=== PATIENT | male | born 1940 | race Caucasian/White ===

== ENCOUNTER 2016-11-06 03:00 | Inpatient (IN) | payer MEDICARE ==
[2016-11-06 03:01] VITALS: BMI 29.9
--- NOTE | 2016-11-06 03:33 | C.PDOC ---
History Of Present Illness Patient, with a past medical history of hypertension, hypercholesterolemia, kidney stones, diverticulitis, and gastritis, is brought to the ED by ambulance from the detention for having blood in his stool. Patient has a colostomy and ileostomy bag which is leaking some stool. Patient denies any pain , fever, nausea, vomiting, abdominal pain, or rectal pain. Time Seen by Provider: 11/06/16 03:32 Chief Complaint (Nursing): GI Problem History Per: Patient, EMS History/Exam Limitations: no limitations Onset/Duration Of Symptoms: Other Current Symptoms Are (Timing): Still Present Severity: None Pain Scale Rating Of: 0 Quality Of Discomfort: Other Recent travel outside of the [place]: No Additional History Per: EMS, Longterm Past Medical History Reviewed: Historical Data, Nursing Documentation, Vital Signs Vital Signs: Last Vital Signs Temp 97.5 F L 11/06/16 15:45 Pulse 94 H 11/06/16 15:45 Resp 15 11/06/16 15:45 BP 124/72 11/06/16 15:45 Pulse Ox 97 11/06/16 15:45 - Medical History PMH: Diverticulitis, Gastritis, HTN, Hypercholesterolemia, Kidney Stones ( required left nephrostomy Dr Beckwith 2013) Surgical History: Endoscopy - [facility] Procedures ASSISTANCE WITH RESPIRATORY VENTILATION, 24-96 HRS, CPAP (01/31/16) BYPASS DESCENDING COLON TO CUTANEOUS, OPEN APPROACH (01/31/16) BYPASS JEJUNUM TO CUTANEOUS, OPEN APPROACH (08/17/16) CYSTOSCOPY NEC (09/21/13) DRAINAGE OF ABDOMINAL WALL WITH DRAIN DEV, OPEN APPROACH (08/17/16) DRAINAGE OF ABDOMINAL WALL, OPEN APPROACH (01/31/16) DRAINAGE OF PELVIC CAVITY, PERCUTANEOUS APPROACH (01/31/16) EXCISION OF DESCENDING COLON, OPEN APPROACH (01/31/16) EXCISION OF ESOPHAGOGASTRIC JUNCTION, ENDO, DIAGN (01/31/16) EXCISION OF SIGMOID COLON, ENDO (01/31/16) EXCISION OF SIGMOID COLON, OPEN APPROACH (08/17/16) EXCISION OF STOMACH, ENDO, DIAGN (01/31/16) EXCISION OF TRANSVERSE COLON, ENDO (01/31/16) INSERTION OF INFUSION DEV INTO SUP VENA CAVA, PERC APPROACH (08/30/16) INTRODUCTION OF NUTRITIONAL INTO CENTRAL VEIN, PERC APPROACH (08/30/16) PERCU NEPHROSTM W/O FRAG (11/04/13) PERCU NEPHROSTMY W FRAG (11/06/13) PLAIN RADIOGRAPHY OF SUP MESENT ART USING OTH CONTRAST (01/31/16) RELEASE DESCENDING COLON, OPEN APPROACH (01/31/16) RELEASE PERITONEUM, OPEN APPROACH (08/17/16) REMOV URETERAL DRAIN (11/27/13) REPAIR ABDOMINAL WALL, OPEN APPROACH (01/31/16) REPAIR SIGMOID COLON, OPEN APPROACH (08/17/16) REPAIR SMALL INTESTINE, OPEN APPROACH (08/17/16) RESECTION OF LEFT LARGE INTESTINE, OPEN APPROACH (01/31/16) RESPIRATORY VENTILATION, LESS THAN 24 CONSECUTIVE HOURS (01/31/16) RETROGRADE PYELOGRAM (09/21/13) TRANSFUSE NONAUT RED BLOOD CELLS IN PERIPH VEIN, PERC (01/31/16) URETERAL CATHETERIZATION (11/27/13) Family History: States: No Known Family Hx - Social History Hx Alcohol Use: No Hx Substance Use: No Review Of Systems Constitutional: Negative for: Fever Gastrointestinal: Positive for: Other (blood in stool). Negative for: Nausea, Vomiting, Abdominal Pain, Rectal Pain Physical Exam - Physical Exam Appears: Non-toxic, No Acute Distress Skin: Warm, Dry, Other (skin breakdown over the pubic area) Head: Atraumatic, Normacephalic Eye(s): bilateral: PERRL, EOMI Oral Mucosa: Moist Neck: Supple Chest: Symmetrical Cardiovascular: Rhythm Regular Respiratory: No Rales, No Rhonchi, No Wheezing Gastrointestinal/Abdominal: Bowel Sounds (good), Soft, No Tenderness, No Guarding, No Rebound Rectal: Other (dark, tarry stool) Back: No CVA Tenderness Extremity: Bilateral: Atraumatic Neurological/Psych: Oriented x3 ED Course And Treatment - Laboratory Results Result Diagrams: 11/06/16 17:54 11/06/16 07:52 O2 Sat by Pulse Oximetry: 98 (room air) Pulse Ox Interpretation: Normal Progress Note: Plan: -Labs. -Protonix, IV fluids Disposition Discussed With : Bharathi Santoro Comment: accepted the pt on his service Doctor Will See Patient In The: Hospital Counseled Patient/Family Regarding: Studies Performed, Diagnosis - Disposition Disposition: HOSPITALIZED Disposition Time: 03:32 Condition: FAIR - Clinical Impression Clinical Impression: Gastrointestinal hemorrhage - Scribe Statement The provider has reviewed the documentation as recorded by the Marshall Santoro Provider Attestation: All medical record entries made by the Scribe were at my direction and personally dictated by me. I have reviewed the chart and agree that the record accurately reflects my personal performance of the history, physical exam, medical decision making, and the department course for this patient. I have also personally directed, reviewed, and agree with the discharge instructions and disposition. Decision To Admit - Pt Status Changed To: Hospital Disposition Of: Inpatient - Admit Certification Admit to Inpatient:: After my assessment, the patient will require hospitalization for at least two midnights. This is because of the severity of symptoms shown, intensity of services needed, and/or the medical risk in this patient being treated as an outpatient. - InPatient: Physician Admission Certification: I certify that this patient requires 2 or more midnights of care for the following reason:: After my assessment, the patient will require hospitalization for at least two midnights. This is because of the severity of symptoms shown, intensity of services needed, and/or the medical risk in this patient being treated as an outpatient. - . Bed Request Type: Regular Admitting Physician: Bharathi Santoro Patient Diagnosis: Gastrointestinal hemorrhage
[2016-11-06] MEDS ORDERED: Sodium Chloride 0.9% 1,000 ML IV ONE (03:37)
[2016-11-06] MEDS ORDERED: Pantoprazole 80 MG in Sodium Chloride 0.9% 100 ML IV STA (03:37)
[2016-11-06] MEDS ORDERED: Sodium Chloride 0.9% 1,000 ML ONE ×2 (06:18→09:43)
[2016-11-06] MEDS ORDERED: Morphine 4 MG/ML VIAL ONE (06:18)
[2016-11-06 08:02] LABS: CHLORIDE 92 mmol/L (98-107)
[2016-11-06 08:03] LABS: POTASSIUM 5.1 mmol/L (3.6-5.2); SODIUM 128 mmol/L (132-148)
[2016-11-06 08:05] LABS: ALB/GLOB RATIO 0.8 (1.0-2.1); ALKALINE PHOSPHATASE 136 U/L (38-126); AST/SGOT 36 U/L (17-59); BILIRUBIN,TOTAL 0.3 mg/dL (0.2-1.3); CARBON DIOXIDE 26 mmol/L (22-30); GFR AFRICAN-AMERICAN > 60; TOTAL PROTEIN 6.7 g/dL (6.3-8.3)
[2016-11-06 08:06] LABS: ALT/SGPT 41 U/L (21-72); BLOOD UREA NITROGEN 15 mg/dL (9-20); GLUCOSE,RANDOM 119 mg/dL (75-110)
[2016-11-06] MEDS: Pantoprazole 80 MG in Sodium Chloride 0.9% 100 ML IV SCH ×2 (09:51→16:51)
[2016-11-06 10:22] LABS: RBC URINE 1 /hpf (0-3); URINE BACTERIA RARE (<OCC); URINE BILIRUBIN NEGATIVE (NEGATIVE); URINE BLOOD NEGATIVE (NEGATIVE); URINE GLUCOSE (UA) NORMAL (Normal); URINE KETONE NEGATIVE (NEGATIVE); URINE LEUKOCYTE ESTERASE NEG Leu/uL (Negative); URINE PROTEIN NEGATIVE (NEGATIVE); URINE UROBILINOGEN NORMAL mg/dL (0.2-1.0); WBC URINE 3 /hpf (0-5)
[2016-11-06 10:23] LABS: URINE COLOR YELLOW (YELLOW)
[2016-11-06 12:38] LABS: BASO % 0.3 % (0.0-2.0); EOS # 0.2 K/uL (0.0-0.7); EOS % 1.8 % (0.0-4.0); HEMATOCRIT 40.7 % (35.0-51.0); LYMPH # 2.1 K/uL (1.0-4.3); MEAN CELL VOLUME 95.4 fL (80.0-94.0); MEAN CORPUSCULAR HEMOGLOBIN 31.8 pg (27.0-31.0); MEAN CORPUSCULAR HGB CONC 33.3 g/dL (33.0-37.0); MEAN PLATELET VOLUME 6.4 fL (7.2-11.7); MONO # 0.6 K/uL (0.0-0.8); MONO % 6.3 % (0.0-10.0); RED CELL DISTRIBUTION WIDTH 18.8 % (11.5-14.5); WHITE BLOOD COUNT 9.9 K/uL (4.8-10.8)
--- NOTE | 2016-11-06 15:49 | CP.PCM.HP ---
History of Present Illness - History of Present Illness History of Present Illness: 76-year-old male with past medical history of GI bleed, hypertension, HLD, DM was BIBA from detention for evaluation. As per ED documentation, while at the detention, patient was noted to have blood in stool. It is unclear as to whether the blood was per rectum or via jejunostomy or entero-cutaneous fistula. Patient reports BM per rectum last evening. Patient denies melena and hematochezia. Patient admits to leaking from fistula site, which has caused some painful skin irritation. Patient denies fever, cough, dizziness, light headedness, chest pain, shortness of breath, nausea/vomiting, abdominal pain, D/C, weakness, myalgias. Present on Admission - Present on Admission Any Indicators Present on Admission: No Past Patient History - Infectious Disease Hx of Infectious Diseases: None - Tetanus Immunizations Tetanus Immunization: Unknown - Past Medical History & Family History Past Medical History?: Yes - Past Social History Smoking Status: Never Smoked - CARDIAC Hx Hypercholesterolemia: Yes Hx Hypertension: Yes - PULMONARY Hx Respiratory Disorders: No - NEUROLOGICAL Hx Neurological Disorder: No - HEENT Hx HEENT Problems: Yes Hx Cataracts: Yes - RENAL Hx Kidney Stones: Yes (required left nephrostomy Dr Beckwith 2013) - ENDOCRINE/METABOLIC Hx Diabetes Mellitus Type 2: Yes - INTEGUMENTARY Hx Dermatological Problems: Yes (dry skin) - MUSCULOSKELETAL/RHEUMATOLOGICAL Hx Falls: Yes - GASTROINTESTINAL Hx Diverticulitis: Yes Hx Gastritis: Yes - GENITOURINARY/GYNECOLOGICAL Hx Genitourinary Disorders: No - PSYCHIATRIC Hx Substance Use: No - SURGICAL HISTORY Hx Surgeries: Yes Other/Comment: CYSTO. colostomy s/p large and small bowel perforation, jejunostomy tube - ANESTHESIA Hx Anesthesia: Yes Hx Anesthesia Reactions: No Hx Malignant Hyperthermia: No Meds Allergies/Adverse Reactions: Allergies Allergy/AdvReac Type Severity Reaction Status Date / Time No Known Allergies Allergy Verified 12/02/16 21:23 Physical Exam - Constitutional Appears: Well - Head Exam Head Exam: ATRAUMATIC, NORMAL INSPECTION, NORMOCEPHALIC - Eye Exam Eye Exam: EOMI, Normal appearance, PERRL Pupil Exam: NORMAL ACCOMODATION, PERRL - ENT Exam ENT Exam: Mucous Membranes Moist, Normal Exam - Neck Exam Neck exam: Positive for: Normal Inspection - Respiratory Exam Respiratory Exam: Decreased Breath Sounds - Cardiovascular Exam Cardiovascular Exam: REGULAR RHYTHM, +S1, +S2 - GI/Abdominal Exam GI & Abdominal Exam: Diminished Bowel Sounds - Rectal Exam Rectal Exam: Deferred Results - Vital Signs Recent Vital Signs: Last Vital Signs Temp 97.5 F L 11/06/16 15:45 Pulse 94 H 11/06/16 15:45 Resp 15 11/06/16 15:45 BP 124/72 11/06/16 15:45 Pulse Ox 97 11/06/16 15:45 - Labs Result Diagrams: 11/15/16 06:12 11/15/16 06:12 Labs: Laboratory Results - last 24 hr 11/06/16 11/06/16 11/06/16 07:52 09:59 12:30 WBC 9.9 D RBC 4.26 L Hgb 13.5 D Hct 40.7 MCV 95.4 H D MCH 31.8 H MCHC 33.3 RDW 18.8 H Plt Count 489 H D MPV 6.4 L Neut % (Auto) 70.6 Lymph % (Auto) 21.0 [place] % (Auto) 6.3 Eos % (Auto) 1.8 Baso % (Auto) 0.3 Neut # 7.0 Lymph # 2.1 [place] # 0.6 Eos # 0.2 Baso # 0.0 Sodium 128 L Potassium 5.1 Chloride 92 L Carbon Dioxide 26 Anion Gap 15 BUN 15 Creatinine 0.9 Est GFR ( Amer) > 60 Est GFR (Non-Af Amer) > 60 Random Glucose 119 H Calcium 8.0 L Total Bilirubin 0.3 AST 36 ALT 41 Alkaline Phosphatase 136 H D Total Protein 6.7 Albumin 3.0 L Globulin 3.7 Albumin/Globulin Ratio 0.8 L Urine Color Yellow Urine Clarity Hazy Urine pH 5.0 Ur Specific [place] 1.025 Urine Protein Negative Urine Glucose (UA) Normal Urine Ketones Negative Urine Blood Negative Urine Nitrate Negative Urine Bilirubin Negative Urine Urobilinogen Normal Ur Leukocyte Esterase Neg Urine WBC (Auto) 3 Urine RBC (Auto) 1 Urine Bacteria Rare Hyaline Casts 6-10 H Assessment & Plan (1) Acute blood loss anemia Status: Acute (2) Anastomotic leak of intestine Status: Acute (3) Anemia Status: Acute (4) Cholecystitis without cholelithiasis Status: Acute (5) Colon polyps Status: Acute (6) Diabetes Status: Acute (7) Gastrointestinal hemorrhage Status: Acute (8) Iron deficiency anemia Status: Acute (9) Prophylactic measure Status: Acute (10) Weight loss Status: Acute (11) Diverticulosis large intestine w/o perforation or abscess w/o bleeding Status: Chronic (12) Diverticulosis of colon Status: Chronic (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
--- NOTE | 2016-11-06 17:08 | CP.PCM.CON ---
History of Present Illness - History of Present Illness History of Present Illness: General Surgery Dr. Gil HPI: 76 y/o M w/ PMHx of GI bleed, HTN, HLD, DM [facility]. Per [facility] documentation, [facility] at the [facility], pt was noted to have blood in stool. It is unclear as to whether the blood was per rectum or via jejunostomy or enterocutaneous fistula. Pt reports BM per rectum last evening. Pt denies melena and hematochezia. Pt admits to leaking from fistula site, which has caused some painful skin irritation. Pt denies F/C, dizziness, lightheadedness, CP, SOB, N/V, abd pain, D/C, weakness, myalgias. PMHx: HTN, HLD, DM, nephrolithiasis, GERD, diverticulosis, GI bleed Meds: reviewed in chart NKDA PSHx: L hemicolectomy, colostomy placement and reversal, ileostomy SHx: denies tobacco, EtOH, drugs FHx: non-contributory Review of Systems - Review of Systems All systems: reviewed and no additional remarkable complaints except (see HPI) Past Patient History - Infectious Disease Hx of Infectious Diseases: None - Tetanus Immunizations Tetanus Immunization: Unknown - Past Medical History & Family History Past Medical History?: Yes - Past Social History Smoking Status: Never Smoked - CARDIAC Hx Hypercholesterolemia: Yes Hx Hypertension: Yes - PULMONARY Hx Respiratory Disorders: No - NEUROLOGICAL Hx Neurological Disorder: No - HEENT Hx HEENT Problems: Yes Hx Cataracts: Yes - RENAL Hx Kidney Stones: Yes (required left nephrostomy Dr Beckwith 2013) - ENDOCRINE/METABOLIC Hx Diabetes Mellitus Type 2: Yes - INTEGUMENTARY Hx Dermatological Problems: Yes (dry skin) - MUSCULOSKELETAL/RHEUMATOLOGICAL Hx Falls: Yes - GASTROINTESTINAL Hx Diverticulitis: Yes Hx Gastritis: Yes - GENITOURINARY/GYNECOLOGICAL Hx Genitourinary Disorders: No - PSYCHIATRIC Hx Substance Use: No - SURGICAL HISTORY Hx Surgeries: Yes Other/Comment: CYSTO. colostomy s/p large and small bowel perforation, jejunostomy tube - ANESTHESIA Hx Anesthesia: Yes Hx Anesthesia Reactions: No Hx Malignant Hyperthermia: No Meds Allergies/Adverse Reactions: Allergies Allergy/AdvReac Type Severity Reaction Status Date / Time No Known Allergies Allergy Verified 01/31/16 14:28 - Medications Medications: Current Medications Pantoprazole Sodium 80 mg/ (Sodium Chloride) 100 mls @ 10 mls/hr IV .Q10H [facility] Last Admin: 11/06/16 16:51 Dose: 10 mls/hr Cefepime HCl (Maxipime Iv 1 Gm Premix) 1 gm in 50 mls @ 100 mls/hr IVPB Q12H [facility] Metronidazole (Flagyl) 500 mg in 100 mls @ 100 mls/hr IVPB Q12H [facility] Physical Exam - Constitutional Appears: Non-toxic, No Acute Distress - Head Exam Head Exam: NORMAL INSPECTION - Eye Exam Eye Exam: Normal appearance - ENT Exam ENT Exam: Mucous Membranes Moist - Neck Exam Neck exam: Positive for: Normal Inspection - Respiratory Exam Respiratory Exam: Accessory Muscle Use, Respiratory Distress, NORMAL BREATHING PATTERN - Cardiovascular Exam Cardiovascular Exam: Tachycardia, REGULAR RHYTHM - GI/Abdominal Exam GI & Abdominal Exam: Rigid, Soft, Tenderness (superfical). absent: Distended, Firm, Guarding, Rebound - Rectal Exam Rectal Exam: Hemorrhoids (L lateral) Additional comments: FOB (-) - Extremities Exam Extremities exam: Positive for: normal inspection, pedal edema, tenderness - Back Exam Back exam: NORMAL INSPECTION - Neurological Exam Neurological exam: Alert, Oriented x3 - Psychiatric Exam Psychiatric exam: Normal Affect, Normal Mood - Skin Skin Exam: Warm Additional comments: LLQ/Suprapubic gross erythema, warmth TTP cellulitis (+) induration but no fluctuance Results - Vital Signs Recent Vital Signs: Last Vital Signs Temp 97.5 F L 11/06/16 15:45 Pulse 94 H 11/06/16 15:45 Resp 15 11/06/16 15:45 BP 124/72 11/06/16 15:45 Pulse Ox 97 11/06/16 15:45 - Labs Result Diagrams: 11/06/16 17:54 11/06/16 07:52 Labs: Laboratory Results - last 24 hr 11/06/16 11/06/16 11/06/16 07:52 09:59 12:30 WBC 9.9 D RBC 4.26 L Hgb 13.5 D Hct 40.7 MCV 95.4 H D MCH 31.8 H MCHC 33.3 RDW 18.8 H Plt Count 489 H D MPV 6.4 L Neut % (Auto) 70.6 Lymph % (Auto) 21.0 [place] % (Auto) 6.3 Eos % (Auto) 1.8 Baso % (Auto) 0.3 Neut # 7.0 Lymph # 2.1 [place] # 0.6 Eos # 0.2 Baso # 0.0 Sodium 128 L Potassium 5.1 Chloride 92 L Carbon Dioxide 26 Anion Gap 15 BUN 15 Creatinine 0.9 Est GFR ( Amer) > 60 Est GFR (Non-Af Amer) > 60 Random Glucose 119 H Calcium 8.0 L Total Bilirubin 0.3 AST 36 ALT 41 Alkaline Phosphatase 136 H D Total Protein 6.7 Albumin 3.0 L Globulin 3.7 Albumin/Globulin Ratio 0.8 L Urine Color Yellow Urine Clarity Hazy Urine pH 5.0 Ur Specific [place] 1.025 Urine Protein Negative Urine Glucose (UA) Normal Urine Ketones Negative Urine Blood Negative Urine Nitrate Negative Urine Bilirubin Negative Urine Urobilinogen Normal Ur Leukocyte Esterase Neg Urine WBC (Auto) 3 Urine RBC (Auto) 1 Urine Bacteria Rare Hyaline Casts 6-10 H Assessment & Plan - Assessment and Plan (Free Text) Assessment: 76 y/o M s/p L hemicolectomy w/ colostomy, reversal, jejunostomy, and enterocutaneous fistula. - unlear as to whether FOB from fistula, in which case its likely from skin irritation, vs rectum, which may indicate lower GI bleed - NPO - keep abd clean and dry --> change dressings PRN - consult wound care for fistula - IV Abx - NPO until clear source of bleeding identified - pain management Further recs per Dr. Jeffery Gutierrez DO PGY1
[2016-11-06] MEDS: Cefepime IV 1 gm in Dextrose 1 GM/50 ML BAG IVPB SCH (17:31)
[2016-11-06 18:02] LABS: BASO % 0.3 % (0.0-2.0); EOS # 0.1 K/uL (0.0-0.7); EOS % 0.8 % (0.0-4.0); HEMATOCRIT 37.3 % (35.0-51.0); LYMPH # 1.9 K/uL (1.0-4.3); MEAN CELL VOLUME 95.4 fL (80.0-94.0); MEAN CORPUSCULAR HEMOGLOBIN 32.4 pg (27.0-31.0); MEAN CORPUSCULAR HGB CONC 33.9 g/dL (33.0-37.0); MEAN PLATELET VOLUME 6.2 fL (7.2-11.7); MONO # 0.5 K/uL (0.0-0.8); MONO % 5.1 % (0.0-10.0); RED CELL DISTRIBUTION WIDTH 19.3 % (11.5-14.5); WHITE BLOOD COUNT 10.4 K/uL (4.8-10.8)
[2016-11-06] MEDS: metroNIDAZOLE IV 500 mg/100 ml 500 MG/100 ML BAG IVPB SCH (18:12)
[2016-11-06] MEDS: Dextrose 5%/0.45% NS 1,000 ML IV SCH (22:10)
[2016-11-06] MEDS: HYDROmorphone 0.5 mg/0.5 ml ISec IVP PRN (22:47)
[2016-11-07] MEDS: Pantoprazole 80 MG in Sodium Chloride 0.9% 100 ML IV SCH (03:56)
[2016-11-07] MEDS: Cefepime IV 1 gm in Dextrose 1 GM/50 ML BAG IVPB SCH ×2 (05:18→16:57)
[2016-11-07] MEDS: HYDROmorphone 0.5 mg/0.5 ml ISec IVP PRN ×2 (06:12→12:40)
[2016-11-07] MEDS: metroNIDAZOLE IV 500 mg/100 ml 500 MG/100 ML BAG IVPB SCH ×2 (06:14→17:36)
--- NOTE | 2016-11-07 09:05 | CP.PCM.PN ---
Subjective - Date & Time of Evaluation Date of Evaluation: 11/07/16 Time of Evaluation: 07:30 - Subjective Subjective: General Surgery Dr. Gil Pt S&E @bedside. NAEO. pt reports improved skin irritation w/ new fistula appliance. no BM overnight. denies F/C, N/V, D/C. no melena or hematochezia. pt is NPO but requesting food. Objective - Vital Signs/Intake and Output Vital Signs (last 24 hours): Temp Pulse Resp BP Pulse Ox 98 F 93 H 12 103/62 94 L 11/07/16 07:58 11/07/16 08:28 11/07/16 07:58 11/07/16 07:58 11/07/16 07:58 Intake and Output: 11/07/16 11/07/16 06:59 18:59 Intake Total 1025 170 Output Total 450 Balance 575 170 - Medications Medications: Current Medications Hydromorphone HCl (Dilaudid) 0.5 mg IVP Q6H PRN PRN Reason: Pain, moderate (4-7) Last Admin: 11/07/16 06:12 Dose: 0.5 mg Pantoprazole Sodium 80 mg/ (Sodium Chloride) 100 mls @ 10 mls/hr IV .Q10H [facility] Last Admin: 11/07/16 03:56 Dose: 10 mls/hr Cefepime HCl (Maxipime Iv 1 Gm Premix) 1 gm in 50 mls @ 100 mls/hr IVPB Q12H [facility] Last Admin: 11/07/16 05:18 Dose: 100 mls/hr Metronidazole (Flagyl) 500 mg in 100 mls @ 100 mls/hr IVPB Q12H [facility] Last Admin: 11/07/16 06:14 Dose: 100 mls/hr Dextrose/Sodium Chloride (Dextrose 5%/0.45% Ns 1000 Ml) 1,000 mls @ 75 mls/hr IV .[id number] [facility] Last Admin: 11/06/16 22:10 Dose: 75 mls/hr - Labs Labs: 11/06/16 17:54 11/06/16 07:52 PT 11.5 SECONDS (9.7-12.2) 11/06/16 03:37 INR 1.0 11/06/16 03:37 APTT 36 SECONDS (21-34) H 11/06/16 03:37 - Constitutional Appears: Non-toxic, No Acute Distress - Head Exam Head Exam: NORMAL INSPECTION - Eye Exam Eye Exam: Normal appearance - ENT Exam ENT Exam: Mucous Membranes Moist - Neck Exam Neck Exam: Normal Inspection - Respiratory Exam Respiratory Exam: NORMAL BREATHING PATTERN. absent: Accessory Muscle Use, Respiratory Distress - Cardiovascular Exam Cardiovascular Exam: REGULAR RHYTHM. absent: Bradycardia, Tachycardia - GI/Abdominal Exam GI & Abdominal Exam: Soft, Tenderness (skin only). absent: Distended, Guarding Additional comments: midline enterocutaneous fistula - liquid stool present in appliance RUQ jejunostomy remnant vs loop ileostomy - ostomy bag empty - Extremities Exam Extremities Exam: Normal Capillary Refill - Neurological Exam Neurological Exam: Alert, Awake - Psychiatric Exam Psychiatric exam: Normal Affect, Normal Mood - Skin Skin Exam: Dry, Intact, Normal Color, Warm Assessment and Plan - Assessment and Plan (Free Text) Assessment: 76 y/o M s/p L hemicolectomy w/ colostomy, reversal, jejunostomy, and enterocutaneous fistula. - f/u Fistulagram - FOB from Rectal exam yesterday negative --> possible (+)FOB from ED came from fistula, in which case its likely from skin irritation - keep abd clean and dry --> change dressings PRN - f/u wound care - IV Abx per PMD - NPO until clear source of bleeding identified - pain management Further recs per Dr. Jeffery Gutierrez DO PGY1
--- NOTE | 2016-11-07 09:56 | CP.PCM.CON ---
<HaydeeteresaRory muir - Last Filed: 11/07/16 10:06> History of Present Illness - History of Present Illness History of Present Illness: PGY4 GI Fellow Consult Note Patient is a 76yo male with PMHx significant for diverticulosis with prior diverticular bleeding requiring left hemicolectomy with colostomy/reversal/loop ileostomy, HTN, dyperlipidemia, nephrolithiasis who presented from [facility] with rectal bleeding. The patient has had a complicated surgical history with left hemicolectomy for diverticular bleeding, reversal of colostomy which was complicated by anastamotic leakage, large bowel perforation , abscess/hematoma/enterocutaneous fisutla formation with multiple revisions/ resection of small bowel and eventual loop ileostomy. At subacute rehab facility , patient was noted to have rectal bleeding for multiple days leading up to admission and was sent for evaluation given persistence. The patient denies these findings and his only complaint at present is some leakage of stool from his ostomy and skin irritation. Denies any dizziness, lightheadedness, abdominal pain, nausea, vomiting. PMHx: See HPI PSHx: See HPI FHx: Discussed with patient and denies any significant family history Social: Denies tobacco, EtOH or illicit drug use Endo: 02/01/16 - EGD/Colon - Class B esophagitis/Schatzki ring/gastritis; 2 polyps/bleeding diverticulosis Review of Systems - Constitutional Constitutional: absent: Anorexia, Chills, Weight Loss - EENT Eyes: absent: Change in Vision Nose/Mouth/Throat: absent: Sore Throat - Cardiovascular Cardiovascular: absent: Chest Pain, Dyspnea, Leg Edema - Respiratory Respiratory: absent: Cough, Dyspnea, Excessive Mucous Production - Gastrointestinal Gastrointestinal: absent: Abdominal Pain, Belching, Bloating, Constipation, Cramping, Diarrhea, Dysphagia, Heartburn, Hematemesis, Hematochezia, Melena, Nausea, Vomiting - Genitourinary Genitourinary: absent: Dysuria, Urinary Frequency, Urinary Urgency - Musculoskeletal Musculoskeletal: absent: Back Pain, Neck Pain - Integumentary Integumentary: absent: New Lesions, Rash - Neurological Neurological: absent: Dizziness, Numbness, Focal Weakness - Psychiatric Psychiatric: absent: Anxiety, Depression - Endocrine Endocrine: absent: Polydipsia, Polyphagia, Polyuria - Hematologic/Lymphatic Hematologic: absent: Easy Bleeding, Easy Bruising, Lymphadenopathy Past Patient History - Infectious Disease Hx of Infectious Diseases: None - Tetanus Immunizations Tetanus Immunization: Unknown - Past Medical History & Family History Past Medical History?: Yes - Past Social History Smoking Status: Never Smoked - CARDIAC Hx Hypercholesterolemia: Yes Hx Hypertension: Yes - PULMONARY Hx Respiratory Disorders: No - NEUROLOGICAL Hx Neurological Disorder: No - HEENT Hx HEENT Problems: Yes Hx Cataracts: Yes - RENAL Hx Kidney Stones: Yes (required left nephrostomy Dr Beckwith 2013) - ENDOCRINE/METABOLIC Hx Diabetes Mellitus Type 2: Yes - INTEGUMENTARY Hx Dermatological Problems: Yes (dry skin) - MUSCULOSKELETAL/RHEUMATOLOGICAL Hx Falls: Yes - GASTROINTESTINAL Hx Diverticulitis: Yes Hx Gastritis: Yes - GENITOURINARY/GYNECOLOGICAL Hx Genitourinary Disorders: No - PSYCHIATRIC Hx Substance Use: No - SURGICAL HISTORY Hx Surgeries: Yes Other/Comment: CYSTO. colostomy s/p large and small bowel perforation, jejunostomy tube - ANESTHESIA Hx Anesthesia: Yes Hx Anesthesia Reactions: No Hx Malignant Hyperthermia: No Meds Allergies/Adverse Reactions: Allergies Allergy/AdvReac Type Severity Reaction Status Date / Time No Known Allergies Allergy Verified 01/31/16 14:28 - Medications Medications: Current Medications Hydromorphone HCl (Dilaudid) 0.5 mg IVP Q6H PRN PRN Reason: Pain, moderate (4-7) Last Admin: 11/07/16 06:12 Dose: 0.5 mg Pantoprazole Sodium 80 mg/ (Sodium Chloride) 100 mls @ 10 mls/hr IV .Q10H [facility] Last Admin: 11/07/16 03:56 Dose: 10 mls/hr Cefepime HCl (Maxipime Iv 1 Gm Premix) 1 gm in 50 mls @ 100 mls/hr IVPB Q12H [facility] Last Admin: 11/07/16 05:18 Dose: 100 mls/hr Metronidazole (Flagyl) 500 mg in 100 mls @ 100 mls/hr IVPB Q12H [facility] Last Admin: 11/07/16 06:14 Dose: 100 mls/hr Dextrose/Sodium Chloride (Dextrose 5%/0.45% Ns 1000 Ml) 1,000 mls @ 75 mls/hr IV .[id number] [facility] Last Admin: 11/06/16 22:10 Dose: 75 mls/hr Physical Exam - Constitutional Appears: Non-toxic, No Acute Distress - Eye Exam Eye Exam: EOMI, PERRL - ENT Exam ENT Exam: Mucous Membranes Moist - Respiratory Exam Respiratory Exam: Clear to Auscultation Bilateral. absent: Rales, Rhonchi, Wheezes - Cardiovascular Exam Cardiovascular Exam: RRR, +S1, +S2 - GI/Abdominal Exam GI & Abdominal Exam: Normal Bowel Sounds, Soft. absent: Distended, Firm, Guarding, Rigid, Tenderness Additional comments: RUQ ostomy with liquid stool; midline pouch for fistula with drainage noted; healing ostomy site in RUQ - Rectal Exam Rectal Exam: absent: Black Stool, Bloody Stool Additional comments: external skin tag - Extremities Exam Extremities exam: Positive for: normal inspection. Negative for: pedal edema - Neurological Exam Neurological exam: Alert, Oriented x3 - Psychiatric Exam Psychiatric exam: Normal Affect, Normal Mood - Skin Skin Exam: Dry, Warm Results - Vital Signs Recent Vital Signs: Last Vital Signs Temp 98 F 11/07/16 07:58 Pulse 93 H 11/07/16 08:28 Resp 12 11/07/16 07:58 BP 103/62 11/07/16 07:58 Pulse Ox 94 L 11/07/16 07:58 - Labs Result Diagrams: 11/06/16 17:54 11/06/16 07:52 Labs: Laboratory Results - last 24 hr 11/06/16 11/06/16 11/06/16 09:59 12:30 17:54 WBC 9.9 D 10.4 RBC 4.26 L 3.91 L Hgb 13.5 D 12.7 Hct 40.7 37.3 MCV 95.4 H D 95.4 H MCH 31.8 H 32.4 H MCHC 33.3 33.9 RDW 18.8 H 19.3 H Plt Count 489 H D 497 H MPV 6.4 L 6.2 L Neut % (Auto) 70.6 75.8 H Lymph % (Auto) 21.0 18.0 L [place] % (Auto) 6.3 5.1 Eos % (Auto) 1.8 0.8 Baso % (Auto) 0.3 0.3 Neut # 7.0 7.9 H Lymph # 2.1 1.9 [place] # 0.6 0.5 Eos # 0.2 0.1 Baso # 0.0 0.0 Urine Color Yellow Urine Clarity Hazy Urine pH 5.0 Ur Specific [place] 1.025 Urine Protein Negative Urine Glucose (UA) Normal Urine Ketones Negative Urine Blood Negative Urine Nitrate Negative Urine Bilirubin Negative Urine Urobilinogen Normal Ur Leukocyte Esterase Neg Urine WBC (Auto) 3 Urine RBC (Auto) 1 Urine Bacteria Rare Hyaline Casts 6-10 H Stool Occult Blood 11/06/16 18:06 WBC RBC Hgb Hct MCV MCH MCHC RDW Plt Count MPV Neut % (Auto) Lymph % (Auto) [place] % (Auto) Eos % (Auto) Baso % (Auto) Neut # Lymph # [place] # Eos # Baso # Urine Color Urine Clarity Urine pH Ur Specific [place] Urine Protein Urine Glucose (UA) Urine Ketones Urine Blood Urine Nitrate Urine Bilirubin Urine Urobilinogen Ur Leukocyte Esterase Urine WBC (Auto) Urine RBC (Auto) Urine Bacteria Hyaline Casts Stool Occult Blood Negative Assessment & Plan - Assessment and Plan (Free Text) Assessment: Patient is a 76yo male with PMHx significant for diverticulosis with prior diverticular bleeding requiring left hemicolectomy with colostomy/reversal/loop ileostomy, HTN, dyperlipidemia, nephrolithiasis who presented from [facility] with rectal bleeding. -Rectal bleeding -Diverticulosis -Skin irritation from ostomy leakage -Enterocutaneous fistula Plan: -No evidence of overt GI bleeding/hematochezia since admission; one stool FOBT positive in ED noted; rectal exam with brown liquid stool -D/C protonix gtt -Start Pantoprazole 40mg PO QAMAC -For now, monitor with conservative management from our service; no plan for endoscopic evaluation at this juncture -General surgery following; appreciate recommendations regarding ostomy/fistula - Date & Time Date: 11/07/16 Time: 06:50 <Maikel Payne - Last Filed: 11/07/16 13:52> Meds - Medications Medications: Current Medications Hydromorphone HCl (Dilaudid) 0.5 mg IVP Q6H PRN PRN Reason: Pain, moderate (4-7) Last Admin: 11/07/16 12:40 Dose: 0.5 mg Cefepime HCl (Maxipime Iv 1 Gm Premix) 1 gm in 50 mls @ 100 mls/hr IVPB Q12H [facility] Last Admin: 11/07/16 05:18 Dose: 100 mls/hr Metronidazole (Flagyl) 500 mg in 100 mls @ 100 mls/hr IVPB Q12H [facility] Last Admin: 11/07/16 06:14 Dose: 100 mls/hr Dextrose/Sodium Chloride (Dextrose 5%/0.45% Ns 1000 Ml) 1,000 mls @ 75 mls/hr IV .[id number] [facility] Last Admin: 11/07/16 11:54 Dose: 75 mls/hr Pantoprazole Sodium (Protonix Ec Tab) 40 mg PO ACB [facility] Results - Vital Signs Recent Vital Signs: Last Vital Signs Temp 98 F 11/07/16 07:58 Pulse 93 H 11/07/16 08:28 Resp 12 11/07/16 07:58 BP 103/62 11/07/16 07:58 Pulse Ox 94 L 11/07/16 07:58 - Labs Result Diagrams: 11/07/16 11:25 11/07/16 11:25 Labs: Laboratory Results - last 24 hr 11/06/16 11/06/16 11/07/16 17:54 18:06 11:25 WBC 10.4 6.5 RBC 3.91 L 3.57 L Hgb 12.7 11.3 L Hct 37.3 34.0 L MCV 95.4 H 95.3 H MCH 32.4 H 31.7 H MCHC 33.9 33.2 RDW 19.3 H 19.1 H Plt Count 497 H 437 H MPV 6.2 L 6.0 L Neut % (Auto) 75.8 H Lymph % (Auto) 18.0 L [place] % (Auto) 5.1 Eos % (Auto) 0.8 Baso % (Auto) 0.3 Neut # 7.9 H Lymph # 1.9 [place] # 0.5 Eos # 0.1 Baso # 0.0 Sodium Potassium Chloride Carbon Dioxide Anion Gap BUN Creatinine Est GFR ( Amer) Est GFR (Non-Af Amer) Random Glucose Calcium Total Bilirubin AST ALT Alkaline Phosphatase Total Protein Albumin Globulin Albumin/Globulin Ratio Stool Occult Blood Negative 11/07/16 11:25 WBC RBC Hgb Hct MCV MCH MCHC RDW Plt Count MPV Neut % (Auto) Lymph % (Auto) [place] % (Auto) Eos % (Auto) Baso % (Auto) Neut # Lymph # [place] # Eos # Baso # Sodium 129 L Potassium 4.2 Chloride 96 L Carbon Dioxide 26 Anion Gap 11 BUN 14 Creatinine 0.8 Est GFR ( Amer) > 60 Est GFR (Non-Af Amer) > 60 Random Glucose 124 H Calcium 7.1 L Total Bilirubin 0.6 AST 30 ALT 36 Alkaline Phosphatase 97 Total Protein 5.4 L Albumin 2.3 L D Globulin 3.1 Albumin/Globulin Ratio 0.7 L Stool Occult Blood Attending/Attestation - Attestation I have personally seen and examined this patient.: Yes I have fully participated in the care of the patient.: Yes I have reviewed all pertinent clinical information: Yes Notes (Text): Patient seen and examined with GI fellow. Agree with his note as documented above with the following additions/exceptions. This is a 76 year old male with h/o diverticular bleeding s/p left hemicolectomy with colostomy/reversal complicated by entercutaneous fistula/anastomotic leak s/p colostomy, HTN presenting with possible GI bleeding. Last CT 10/2015 redemonstrating enterocutaneous fistula with small collection. His ostomy/fistula sites are not draining bloody output at this time. Rectal examination without any evidence of overt GI blood loss. Last EGD/colonoscopy 2015 for GI bleeding showed bleeding diverticulum. Would manage conservatively at this point, monitor for bleeding, monitor H/H. Continue PPI daily. Follow up surgery recommendations. 11/07/16 13:46
[2016-11-07 11:29] LABS: MEAN CELL VOLUME 95.3 fL (80.0-94.0); MEAN CORPUSCULAR HEMOGLOBIN 31.7 pg (27.0-31.0); MEAN CORPUSCULAR HGB CONC 33.2 g/dL (33.0-37.0); RED CELL DISTRIBUTION WIDTH 19.1 % (11.5-14.5); WHITE BLOOD COUNT 6.5 K/uL (4.8-10.8)
[2016-11-07 11:35] LABS: CHLORIDE 96 mmol/L (98-107); POTASSIUM 4.2 mmol/L (3.6-5.2); SODIUM 129 mmol/L (132-148)
[2016-11-07 11:37] LABS: ALB/GLOB RATIO 0.7 (1.0-2.1); AST/SGOT 30 U/L (17-59); BILIRUBIN,TOTAL 0.6 mg/dL (0.2-1.3); CARBON DIOXIDE 26 mmol/L (22-30); GFR AFRICAN-AMERICAN > 60; TOTAL PROTEIN 5.4 g/dL (6.3-8.3)
[2016-11-07 11:38] LABS: ALKALINE PHOSPHATASE 97 U/L (38-126); ALT/SGPT 36 U/L (21-72); BLOOD UREA NITROGEN 14 mg/dL (9-20); CALCIUM 7.1 mg/dl (8.6-10.4); GLUCOSE,RANDOM 124 mg/dL (75-110)
[2016-11-07] MEDS: Dextrose 5%/0.45% NS 1,000 ML IV SCH (11:54)
--- NOTE | 2016-11-07 17:10 | CP.PCM.PN ---
Subjective - Date & Time of Evaluation Date of Evaluation: 11/07/16 Time of Evaluation: 14:40 - Subjective Subjective: clincally same Objective - Vital Signs/Intake and Output Vital Signs (last 24 hours): Temp Pulse Resp BP Pulse Ox 97.3 F L 92 H 14 86/60 L 98 11/07/16 14:00 11/07/16 15:00 11/07/16 14:00 11/07/16 14:00 11/07/16 14:00 Intake and Output: 11/07/16 11/07/16 06:59 18:59 Intake Total 1025 1790 Output Total 450 100 Balance 575 1690 - Medications Medications: Current Medications Hydromorphone HCl (Dilaudid) 0.5 mg IVP Q6H PRN PRN Reason: Pain, moderate (4-7) Last Admin: 11/07/16 12:40 Dose: 0.5 mg Cefepime HCl (Maxipime Iv 1 Gm Premix) 1 gm in 50 mls @ 100 mls/hr IVPB Q12H [facility] Last Admin: 11/07/16 16:57 Dose: 100 mls/hr Metronidazole (Flagyl) 500 mg in 100 mls @ 100 mls/hr IVPB Q12H [facility] Last Admin: 11/07/16 06:14 Dose: 100 mls/hr Dextrose/Sodium Chloride (Dextrose 5%/0.45% Ns 1000 Ml) 1,000 mls @ 75 mls/hr IV .[id number] [facility] Last Admin: 11/07/16 11:54 Dose: 75 mls/hr Pantoprazole Sodium (Protonix Ec Tab) 40 mg PO ACB [facility] - Labs Labs: 11/07/16 11:25 11/07/16 11:25 PT 11.5 SECONDS (9.7-12.2) 11/06/16 03:37 INR 1.0 11/06/16 03:37 APTT 36 SECONDS (21-34) H 11/06/16 03:37 - Constitutional Appears: Well - Head Exam Head Exam: ATRAUMATIC, NORMAL INSPECTION, NORMOCEPHALIC - Eye Exam Eye Exam: EOMI, Normal appearance, PERRL Pupil Exam: NORMAL ACCOMODATION, PERRL - ENT Exam ENT Exam: Mucous Membranes Moist, Normal Exam - Neck Exam Neck Exam: Full ROM, Normal Inspection. absent: Lymphadenopathy - Respiratory Exam Respiratory Exam: Decreased Breath Sounds - Cardiovascular Exam Cardiovascular Exam: REGULAR RHYTHM, +S1, +S2 - GI/Abdominal Exam GI & Abdominal Exam: Soft, Diminished Bowel Sounds - Rectal Exam Rectal Exam: Deferred Assessment and Plan (1) Acute blood loss anemia Status: Acute (2) Anastomotic leak of intestine Status: Acute (3) Anemia Status: Acute (4) Cholecystitis without cholelithiasis Status: Acute (5) Colon polyps Status: Acute (6) Diabetes Status: Acute (7) Gastrointestinal hemorrhage Status: Acute (8) Iron deficiency anemia Status: Acute (9) Prophylactic measure Status: Acute (10) Weight loss Status: Acute (11) Diverticulosis large intestine w/o perforation or abscess w/o bleeding Status: Chronic (12) Diverticulosis of colon Status: Chronic (13) Enterocutaneous fistula Status: Chronic (14) Dehydration, severe Status: Resolved (15) Sepsis Status: Resolved (16) Sialadenitis Status: Resolved (17) Cholecystitis with cholelithiasis Status: Ruled-out - Assessment and Plan (Free Text) Plan: estefany meds surgery consult pulmo on board GI consult estefany antibiotics IV fluids dilaudid
[2016-11-08] MEDS: Dextrose 5%/0.45% NS 1,000 ML IV SCH ×3 (03:16→15:36)
[2016-11-08] MEDS: Cefepime IV 1 gm in Dextrose 1 GM/50 ML BAG IVPB SCH ×2 (05:17→17:44)
[2016-11-08] MEDS: HYDROmorphone 0.5 mg/0.5 ml ISec IVP PRN (05:55)
[2016-11-08] MEDS: metroNIDAZOLE IV 500 mg/100 ml 500 MG/100 ML BAG IVPB SCH ×2 (06:02→17:45)
--- NOTE | 2016-11-08 08:05 | CP.PCM.PN ---
<Rory Eaton - Last Filed: 11/08/16 08:02> Subjective - Date & Time of Evaluation Date of Evaluation: 11/08/16 Time of Evaluation: 07:15 - Subjective Subjective: PGY4 GI Fellow Progress Note Patient seen and examined bedside this morning. The patient denies any rectal bleeding since admission. No bleeding has been noted by staff since arrival to the ICU. He denies any abdominal pain, nausea, vomiting. Continues to pass stool to ostomy and from rectum as well as having continued output via enterocutaneous fistula. 12 system ROS performed and negative except where stated. Objective - Vital Signs/Intake and Output Vital Signs (last 24 hours): Temp Pulse Resp BP Pulse Ox 97.5 F L 86 18 97/55 L 96 11/08/16 06:00 11/08/16 06:00 11/08/16 06:00 11/08/16 06:00 11/07/16 22:00 Intake and Output: 11/08/16 11/08/16 06:59 18:59 Intake Total 2200 75 Output Total 701 Balance 1499 75 - Medications Medications: Current Medications Hydromorphone HCl (Dilaudid) 0.5 mg IVP Q6H PRN PRN Reason: Pain, moderate (4-7) Last Admin: 11/08/16 05:55 Dose: 0.5 mg Cefepime HCl (Maxipime Iv 1 Gm Premix) 1 gm in 50 mls @ 100 mls/hr IVPB Q12H [facility] Last Admin: 11/08/16 05:17 Dose: 100 mls/hr Metronidazole (Flagyl) 500 mg in 100 mls @ 100 mls/hr IVPB Q12H [facility] Last Admin: 11/08/16 06:02 Dose: 100 mls/hr Dextrose/Sodium Chloride (Dextrose 5%/0.45% Ns 1000 Ml) 1,000 mls @ 75 mls/hr IV .[id number] [facility] Last Admin: 11/08/16 03:16 Dose: 75 mls/hr Pantoprazole Sodium (Protonix Ec Tab) 40 mg PO ACB [facility] - Labs Labs: 11/07/16 11:25 11/07/16 11:25 PT 11.5 SECONDS (9.7-12.2) 11/06/16 03:37 INR 1.0 11/06/16 03:37 APTT 36 SECONDS (21-34) H 11/06/16 03:37 - Constitutional Appears: Non-toxic, No Acute Distress, Chronically Ill - Eye Exam Eye Exam: EOMI, PERRL - ENT Exam ENT Exam: Mucous Membranes Moist - Respiratory Exam Respiratory Exam: Clear to Ausculation Bilateral. absent: Rales, Rhonchi, Wheezes - Cardiovascular Exam Cardiovascular Exam: RRR, +S1, +S2 - GI/Abdominal Exam GI & Abdominal Exam: Soft, Normal Bowel Sounds. absent: Distended, Firm, Guarding, Rigid, Tenderness, Organomegaly Additional comments: midline collection of enterocutaneous fistula with significant thin green output ; LUQ ostomy - Extremities Exam Extremities Exam: Normal Inspection. absent: Pedal Edema - Neurological Exam Neurological Exam: Alert, Awake, Oriented x3 - Psychiatric Exam Psychiatric exam: Normal Affect, Normal Mood - Skin Skin Exam: Dry, Warm Assessment and Plan - Assessment and Plan (Free Text) Assessment: Patient is a 76yo male with PMHx significant for diverticulosis with prior diverticular bleeding requiring left hemicolectomy with colostomy/reversal/loop ileostomy, HTN, dyperlipidemia, nephrolithiasis who presented from [facility] with rectal bleeding. -Rectal bleeding, resolved/unwitnessed by staff since admission to ICU -Diverticulosis -Skin irritation from ostomy leakage -Enterocutaneous fistula Plan: -Still with no evidence of overt GI bleeding/hematochezia since admission -Pantoprazole 40mg PO QAMAC -For now, monitor with conservative management from our service; no plan for endoscopic evaluation at this juncture -General surgery following; further plan per their service -Will sign off. Thank you for allowing us to participate in the care of your patient. <Vasile Garcia - Last Filed: 11/08/16 14:05> Objective - Vital Signs/Intake and Output Vital Signs (last 24 hours): Temp Pulse Resp BP Pulse Ox 97.4 F L 85 16 96/66 L 98 11/08/16 12:00 11/08/16 12:00 11/08/16 12:00 11/08/16 12:00 11/08/16 12:00 Intake and Output: 11/08/16 11/08/16 06:59 18:59 Intake Total 2200 575 Output Total 701 150 Balance 1499 425 - Medications Medications: Current Medications Acetaminophen (Tylenol 325mg Tab) 650 mg PO Q6 PRN PRN Reason: Pain, Mild (1-3) Hydromorphone HCl (Dilaudid) 0.5 mg IVP Q4H PRN PRN Reason: Pain, severe (8-10) Last Admin: 11/08/16 11:37 Dose: 0.5 mg Cefepime HCl (Maxipime Iv 1 Gm Premix) 1 gm in 50 mls @ 100 mls/hr IVPB Q12H [facility] Last Admin: 11/08/16 05:17 Dose: 100 mls/hr Metronidazole (Flagyl) 500 mg in 100 mls @ 100 mls/hr IVPB Q12H [facility] Last Admin: 11/08/16 06:02 Dose: 100 mls/hr Dextrose/Sodium Chloride (Dextrose 5%/0.45% Ns 1000 Ml) 1,000 mls @ 75 mls/hr IV .[id number] [facility] Last Admin: 11/08/16 03:16 Dose: 75 mls/hr Oxycodone/Acetaminophen (Percocet 5/325 Mg Tab) 1 tab PO Q4H PRN PRN Reason: Pain, moderate (4-7) Stop: 11/11/16 11:43 Pantoprazole Sodium (Protonix Ec Tab) 40 mg PO ACB [facility] Last Admin: 11/08/16 09:49 Dose: 40 mg - Labs Labs: 11/07/16 11:25 11/07/16 11:25 PT 11.5 SECONDS (9.7-12.2) 11/06/16 03:37 INR 1.0 11/06/16 03:37 APTT 36 SECONDS (21-34) H 11/06/16 03:37 Attending/Attestation - Attestation I have personally seen and examined this patient.: Yes I have fully participated in the care of the patient.: Yes I have reviewed all pertinent clinical information, including history, physical exam and plan: Yes Notes (Text): 11/08/16 14:02 I have seen and examined patient with GI fellow. No acute events overnight. He denies abdominal pain, nausea, vomiting, fever/chills, or episodes of rectal bleeding. Episode of hypotension noted from this morning. History of diverticular bleeding with subsequent complex surgical history including loop ileostomy Enterocutaneous fistula Rectal bleeding - resolved - Continue with antibiotic therapy - H/H stable without evidence of overt bleeding, continue to monitor - Follow up surgical recommendations regarding management of fistula - Continue with antibiotic therapy as per medical team - No ongoing GI issues, will sign off case. Please reconsult as necessary, thank you.
[2016-11-08] MEDS: Pantoprazole 40 mg EC Tab PO SCH (09:49)
[2016-11-08] MEDS ORDERED: HYDROmorphone 0.5 mg/0.5 ml ISec IVP PRN (10:34)
[2016-11-08] MEDS: Oxycodone/Acetaminophen 5/325 mg Tab PO PRN (15:27)
--- NOTE | 2016-11-08 17:53 | CP.PCM.PN ---
Subjective - Date & Time of Evaluation Date of Evaluation: 11/08/16 Time of Evaluation: 07:40 - Subjective Subjective: Patient seen and examined. Patient complaining of some abdominal pain. Patient states it only hurts when he is moving. Pain medication frequency increased. Patient having stool output from enterocutaneous fistula, no output form colostomy bag. Objective - Vital Signs/Intake and Output Vital Signs (last 24 hours): Temp Pulse Resp BP Pulse Ox 97.7 F 75 16 96/57 L 97 11/08/16 16:00 11/08/16 16:00 11/08/16 16:00 11/08/16 16:00 11/08/16 16:00 Intake and Output: 11/08/16 11/08/16 06:59 18:59 Intake Total 2200 1125 Output Total 701 200 Balance 1499 925 - Medications Medications: Current Medications Acetaminophen (Tylenol 325mg Tab) 650 mg PO Q6 PRN PRN Reason: Pain, Mild (1-3) Hydromorphone HCl (Dilaudid) 0.5 mg IVP Q4H PRN PRN Reason: Pain, severe (8-10) Last Admin: 11/08/16 11:37 Dose: 0.5 mg Cefepime HCl (Maxipime Iv 1 Gm Premix) 1 gm in 50 mls @ 100 mls/hr IVPB Q12H [facility] Last Admin: 11/08/16 17:44 Dose: 100 mls/hr Metronidazole (Flagyl) 500 mg in 100 mls @ 100 mls/hr IVPB Q12H [facility] Last Admin: 11/08/16 17:45 Dose: 100 mls/hr Dextrose/Sodium Chloride (Dextrose 5%/0.45% Ns 1000 Ml) 1,000 mls @ 75 mls/hr IV .[id number] [facility] Last Admin: 11/08/16 15:36 Dose: 75 mls/hr Oxycodone/Acetaminophen (Percocet 5/325 Mg Tab) 1 tab PO Q4H PRN PRN Reason: Pain, moderate (4-7) Stop: 11/11/16 11:43 Last Admin: 11/08/16 15:27 Dose: 1 tab Pantoprazole Sodium (Protonix Ec Tab) 40 mg PO ACB [facility] Last Admin: 11/08/16 09:49 Dose: 40 mg - Labs Labs: 11/07/16 11:25 11/07/16 11:25 PT 11.5 SECONDS (9.7-12.2) 11/06/16 03:37 INR 1.0 11/06/16 03:37 APTT 36 SECONDS (21-34) H 11/06/16 03:37 - Constitutional Appears: No Acute Distress - Eye Exam Eye Exam: Normal appearance - ENT Exam ENT Exam: Mucous Membranes Moist - Respiratory Exam Respiratory Exam: NORMAL BREATHING PATTERN - Cardiovascular Exam Cardiovascular Exam: +S1, +S2. absent: Tachycardia - GI/Abdominal Exam GI & Abdominal Exam: Soft, Tenderness Additional comments: tenderness around enterocutaneous fistula site - Neurological Exam Neurological Exam: Alert, Awake, Oriented x3 - Psychiatric Exam Psychiatric exam: Normal Mood - Skin Skin Exam: Dry, Intact, Warm Assessment and Plan - Assessment and Plan (Free Text) Assessment: 76 y/o M s/p L hemicolectomy w/ colostomy, reversal, jejunostomy, and enterocutaneous fistula. - f/u Fistulagram - keep abd clean and dry --> change dressings PRN - f/u wound care - IV Abx per PMD - pain management Further recs per Dr. Gil
--- NOTE | 2016-11-08 21:53 | CP.PCM.PN ---
Subjective - Date & Time of Evaluation Date of Evaluation: 11/08/16 Time of Evaluation: 11:20 - Subjective Subjective: clinically same Objective - Vital Signs/Intake and Output Vital Signs (last 24 hours): Temp Pulse Resp BP Pulse Ox 97.4 F L 84 12 108/66 98 11/08/16 20:00 11/08/16 20:00 11/08/16 20:00 11/08/16 20:00 11/08/16 20:00 Intake and Output: 11/08/16 11/09/16 18:59 06:59 Intake Total 1475 0 Output Total 300 Balance 1175 0 - Medications Medications: Current Medications Acetaminophen (Tylenol 325mg Tab) 650 mg PO Q6 PRN PRN Reason: Pain, Mild (1-3) Hydromorphone HCl (Dilaudid) 0.5 mg IVP Q4H PRN PRN Reason: Pain, severe (8-10) Last Admin: 11/08/16 11:37 Dose: 0.5 mg Cefepime HCl (Maxipime Iv 1 Gm Premix) 1 gm in 50 mls @ 100 mls/hr IVPB Q12H [facility] Last Admin: 11/08/16 17:44 Dose: 100 mls/hr Metronidazole (Flagyl) 500 mg in 100 mls @ 100 mls/hr IVPB Q12H [facility] Last Admin: 11/08/16 17:45 Dose: 100 mls/hr Dextrose/Sodium Chloride (Dextrose 5%/0.45% Ns 1000 Ml) 1,000 mls @ 75 mls/hr IV .[id number] [facility] Last Admin: 11/08/16 15:36 Dose: 75 mls/hr Oxycodone/Acetaminophen (Percocet 5/325 Mg Tab) 1 tab PO Q4H PRN PRN Reason: Pain, moderate (4-7) Stop: 11/11/16 11:43 Last Admin: 11/08/16 15:27 Dose: 1 tab Pantoprazole Sodium (Protonix Ec Tab) 40 mg PO ACB [facility] Last Admin: 11/08/16 09:49 Dose: 40 mg - Labs Labs: 11/07/16 11:25 11/07/16 11:25 PT 11.5 SECONDS (9.7-12.2) 11/06/16 03:37 INR 1.0 11/06/16 03:37 APTT 36 SECONDS (21-34) H 11/06/16 03:37 - Constitutional Appears: Well - Head Exam Head Exam: ATRAUMATIC, NORMAL INSPECTION, NORMOCEPHALIC - Eye Exam Eye Exam: EOMI, Normal appearance, PERRL Pupil Exam: NORMAL ACCOMODATION, PERRL - ENT Exam ENT Exam: Mucous Membranes Moist, Normal Exam - Neck Exam Neck Exam: Full ROM, Normal Inspection. absent: Lymphadenopathy - Respiratory Exam Respiratory Exam: Decreased Breath Sounds - Cardiovascular Exam Cardiovascular Exam: REGULAR RHYTHM, +S1, +S2 - GI/Abdominal Exam GI & Abdominal Exam: Soft, Diminished Bowel Sounds - Rectal Exam Rectal Exam: Deferred Assessment and Plan (1) Acute blood loss anemia Status: Acute (2) Anastomotic leak of intestine Status: Acute (3) Anemia Status: Acute (4) Cholecystitis without cholelithiasis Status: Acute (5) Colon polyps Status: Acute (6) Diabetes Status: Acute (7) Gastrointestinal hemorrhage Status: Acute (8) Iron deficiency anemia Status: Acute (9) Prophylactic measure Status: Acute (10) Weight loss Status: Acute (11) Diverticulosis large intestine w/o perforation or abscess w/o bleeding Status: Chronic (12) Diverticulosis of colon Status: Chronic (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
[2016-11-09] MEDS: Dextrose 5%/0.45% NS 1,000 ML IV SCH ×3 (02:05→17:24)
[2016-11-09] MEDS: Oxycodone/Acetaminophen 5/325 mg Tab PO PRN ×3 (03:00→16:45)
[2016-11-09] MEDS: Cefepime IV 1 gm in Dextrose 1 GM/50 ML BAG IVPB SCH ×2 (04:30→16:48)
[2016-11-09] MEDS: metroNIDAZOLE IV 500 mg/100 ml 500 MG/100 ML BAG IVPB SCH ×2 (05:00→17:36)
[2016-11-09] MEDS: Pantoprazole 40 mg EC Tab PO SCH (07:19)
[2016-11-09 07:41] LABS: BASO # 0.1 K/uL (0.0-0.2); BASO % 0.9 % (0.0-2.0); EOS # 0.2 K/uL (0.0-0.7); EOS % 3.6 % (0.0-4.0); HEMATOCRIT 33.8 % (35.0-51.0); LYMPH # 1.3 K/uL (1.0-4.3); LYMPH % 21.4 % (20.0-40.0); MEAN CELL VOLUME 95.4 fL (80.0-94.0); MEAN CORPUSCULAR HEMOGLOBIN 31.7 pg (27.0-31.0); MEAN CORPUSCULAR HGB CONC 33.2 g/dL (33.0-37.0); MEAN PLATELET VOLUME 6.1 fL (7.2-11.7); MONO # 0.3 K/uL (0.0-0.8); MONO % 4.7 % (0.0-10.0); RED CELL DISTRIBUTION WIDTH 18.4 % (11.5-14.5); WHITE BLOOD COUNT 6.2 K/uL (4.8-10.8)
[2016-11-09 08:13] LABS: CHLORIDE 101 mmol/L (98-107); POTASSIUM 3.9 mmol/L (3.6-5.2); SODIUM 131 mmol/L (132-148)
[2016-11-09 08:15] LABS: GFR AFRICAN-AMERICAN > 60
[2016-11-09 08:16] LABS: ALB/GLOB RATIO 0.7 (1.0-2.1); ALKALINE PHOSPHATASE 116 U/L (38-126); ALT/SGPT 63 U/L (21-72); AST/SGOT 166 U/L (17-59); BILIRUBIN,TOTAL 0.7 mg/dL (0.2-1.3); BLOOD UREA NITROGEN 6 mg/dL (9-20); CALCIUM 7.3 mg/dl (8.6-10.4); CARBON DIOXIDE 24 mmol/L (22-30); GLUCOSE,RANDOM 102 mg/dL (75-110); MAGNESIUM 1.5 mg/dL (1.6-2.3); TOTAL PROTEIN 5.3 g/dL (6.3-8.3)
--- NOTE | 2016-11-09 08:43 | CP.PCM.PN ---
Subjective - Date & Time of Evaluation Date of Evaluation: 11/09/16 Time of Evaluation: 07:45 - Subjective Subjective: Gen Surg: Dr. Gil Patient seen and examined this AM. Reports mild abdominal pain along enterocutaneous fistula site. NAEO. Pt scheduled for fistulagram. Still has no output from colostomy bag. +Stool output from enterocutaneous fistula site. Tolerating liquid diet. Objective - Vital Signs/Intake and Output Vital Signs (last 24 hours): Temp Pulse Resp BP Pulse Ox 97.8 F 95 H 18 106/74 97 11/09/16 08:00 11/09/16 08:00 11/09/16 08:00 11/09/16 08:00 11/09/16 08:00 Intake and Output: 11/09/16 11/09/16 06:59 18:59 Intake Total 1750 50 Output Total 200 200 Balance 1550 -150 - Medications Medications: Current Medications Acetaminophen (Tylenol 325mg Tab) 650 mg PO Q6 PRN PRN Reason: Pain, Mild (1-3) Hydromorphone HCl (Dilaudid) 0.5 mg IVP Q4H PRN PRN Reason: Pain, severe (8-10) Last Admin: 11/08/16 11:37 Dose: 0.5 mg Cefepime HCl (Maxipime Iv 1 Gm Premix) 1 gm in 50 mls @ 100 mls/hr IVPB Q12H [facility] Last Admin: 11/09/16 04:30 Dose: 100 mls/hr Metronidazole (Flagyl) 500 mg in 100 mls @ 100 mls/hr IVPB Q12H [facility] Last Admin: 11/09/16 05:00 Dose: 100 mls/hr Dextrose/Sodium Chloride (Dextrose 5%/0.45% Ns 1000 Ml) 1,000 mls @ 75 mls/hr IV .[id number] [facility] Last Admin: 11/09/16 08:19 Dose: 75 mls/hr Oxycodone/Acetaminophen (Percocet 5/325 Mg Tab) 1 tab PO Q4H PRN PRN Reason: Pain, moderate (4-7) Stop: 11/11/16 11:43 Last Admin: 11/09/16 03:00 Dose: 1 tab Pantoprazole Sodium (Protonix Ec Tab) 40 mg PO ACB [facility] Last Admin: 11/09/16 07:19 Dose: 40 mg - Labs Labs: 11/09/16 07:35 11/09/16 07:35 PT 11.5 SECONDS (9.7-12.2) 11/06/16 03:37 INR 1.0 11/06/16 03:37 APTT 36 SECONDS (21-34) H 11/06/16 03:37 - Constitutional Appears: No Acute Distress - Eye Exam Eye Exam: Normal appearance - ENT Exam ENT Exam: Mucous Membranes Moist - Respiratory Exam Respiratory Exam: NORMAL BREATHING PATTERN - Cardiovascular Exam Cardiovascular Exam: +S1, +S2 - GI/Abdominal Exam GI & Abdominal Exam: Soft, Tenderness - Neurological Exam Neurological Exam: Alert, Awake, Oriented x3 - Psychiatric Exam Psychiatric exam: Normal Mood - Skin Skin Exam: Dry, Erythema, Warm Assessment and Plan - Assessment and Plan (Free Text) Assessment: 76 y/o M s/p L hemicolectomy w/ colostomy, reversal, jejunostomy, and enterocutaneous fistula. - f/u Fistulagram -Still no output from colostomy - keep abd clean and dry --> change dressings PRN - f/u wound care - IV Abx per PMD - pain management Further recs per Dr. Gil
[2016-11-09] MEDS ORDERED: Magnesium Sulfate 1 gm in D5W 1 GM/100 ML BAG IVPB ONE (10:00)
[2016-11-09] MEDS ORDERED: Lidocaine 2% Inj (20ml) ONE (14:36)
[2016-11-09] MEDS ORDERED: Iodixanol 320 MG/ML 100 ML BOTTLE IV ONE (14:36)
--- NOTE | 2016-11-09 17:00 | CP.PCM.PN ---
Subjective - Date & Time of Evaluation Date of Evaluation: 11/09/16 Time of Evaluation: 12:00 - Subjective Subjective: clinically same Objective - Vital Signs/Intake and Output Vital Signs (last 24 hours): Temp Pulse Resp BP Pulse Ox 97.4 F L 78 14 116/72 96 11/09/16 12:00 11/09/16 12:00 11/09/16 12:00 11/09/16 12:00 11/09/16 12:00 Intake and Output: 11/09/16 11/09/16 06:59 18:59 Intake Total 1750 200 Output Total 200 300 Balance 1550 -100 - Medications Medications: Current Medications Acetaminophen (Tylenol 325mg Tab) 650 mg PO Q6 PRN PRN Reason: Pain, Mild (1-3) Hydromorphone HCl (Dilaudid) 0.5 mg IVP Q4H PRN PRN Reason: Pain, severe (8-10) Last Admin: 11/08/16 11:37 Dose: 0.5 mg Cefepime HCl (Maxipime Iv 1 Gm Premix) 1 gm in 50 mls @ 100 mls/hr IVPB Q12H [facility] Last Admin: 11/09/16 16:48 Dose: 100 mls/hr Metronidazole (Flagyl) 500 mg in 100 mls @ 100 mls/hr IVPB Q12H [facility] Last Admin: 11/09/16 05:00 Dose: 100 mls/hr Dextrose/Sodium Chloride (Dextrose 5%/0.45% Ns 1000 Ml) 1,000 mls @ 75 mls/hr IV .[id number] [facility] Last Admin: 11/09/16 08:19 Dose: 75 mls/hr Oxycodone/Acetaminophen (Percocet 5/325 Mg Tab) 1 tab PO Q4H PRN PRN Reason: Pain, moderate (4-7) Stop: 11/11/16 11:43 Last Admin: 11/09/16 16:45 Dose: 1 tab Pantoprazole Sodium (Protonix Ec Tab) 40 mg PO ACB [facility] Last Admin: 11/09/16 07:19 Dose: 40 mg - Labs Labs: 11/09/16 07:35 11/09/16 07:35 PT 11.5 SECONDS (9.7-12.2) 11/06/16 03:37 INR 1.0 11/06/16 03:37 APTT 36 SECONDS (21-34) H 11/06/16 03:37 - Constitutional Appears: Well - Head Exam Head Exam: ATRAUMATIC, NORMAL INSPECTION, NORMOCEPHALIC - Eye Exam Eye Exam: EOMI, Normal appearance, PERRL Pupil Exam: NORMAL ACCOMODATION, PERRL - ENT Exam ENT Exam: Mucous Membranes Moist, Normal Exam - Neck Exam Neck Exam: Full ROM, Normal Inspection. absent: Lymphadenopathy - Respiratory Exam Respiratory Exam: Decreased Breath Sounds - Cardiovascular Exam Cardiovascular Exam: REGULAR RHYTHM, +S1, +S2 - GI/Abdominal Exam GI & Abdominal Exam: Soft, Diminished Bowel Sounds - Rectal Exam Rectal Exam: Deferred Assessment and Plan (1) Acute blood loss anemia Status: Acute (2) Anastomotic leak of intestine Status: Acute (3) Anemia Status: Acute (4) Cholecystitis without cholelithiasis Status: Acute (5) Colon polyps Status: Acute (6) Diabetes Status: Acute (7) Gastrointestinal hemorrhage Status: Acute (8) Iron deficiency anemia Status: Acute (9) Prophylactic measure Status: Acute (10) Weight loss Status: Acute (11) Diverticulosis large intestine w/o perforation or abscess w/o bleeding Status: Chronic (12) Diverticulosis of colon Status: Chronic (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
[2016-11-09 17:05] VITALS: RESP 20
[2016-11-10] MEDS: Cefepime IV 1 gm in Dextrose 1 GM/50 ML BAG IVPB SCH ×2 (04:58→17:12)
[2016-11-10] MEDS: Oxycodone/Acetaminophen 5/325 mg Tab PO PRN ×4 (05:44→21:36)
[2016-11-10] MEDS: metroNIDAZOLE IV 500 mg/100 ml 500 MG/100 ML BAG IVPB SCH ×2 (05:46→18:02)
[2016-11-10] MEDS: Pantoprazole 40 mg EC Tab PO SCH (06:51)
--- NOTE | 2016-11-10 09:11 | CP.PCM.PN ---
Subjective - Date & Time of Evaluation Date of Evaluation: 11/10/16 Time of Evaluation: 06:45 - Subjective Subjective: Gen Sug: Dr. Gil Pt S&E this AM. Reports no complaints. Patient still has no output from colostomy. Denies nausea/vomiting, abdominal pain. Tolerating diet. NAEO. Requesting diet be advanced Objective - Vital Signs/Intake and Output Vital Signs (last 24 hours): Temp Pulse Resp BP Pulse Ox 98.2 F 99 H 20 102/65 97 11/10/16 08:27 11/10/16 08:27 11/10/16 08:27 11/10/16 08:27 11/10/16 08:27 Intake and Output: 11/10/16 11/10/16 06:59 18:59 Intake Total 887.5 Output Total 1370 Balance -482.5 - Medications Medications: Current Medications Acetaminophen (Tylenol 325mg Tab) 650 mg PO Q6 PRN PRN Reason: Pain, Mild (1-3) Hydromorphone HCl (Dilaudid) 0.5 mg IVP Q4H PRN PRN Reason: Pain, severe (8-10) Last Admin: 11/08/16 11:37 Dose: 0.5 mg Cefepime HCl (Maxipime Iv 1 Gm Premix) 1 gm in 50 mls @ 100 mls/hr IVPB Q12H [facility] Last Admin: 11/10/16 04:58 Dose: 100 mls/hr Metronidazole (Flagyl) 500 mg in 100 mls @ 100 mls/hr IVPB Q12H [facility] Last Admin: 11/10/16 05:46 Dose: 100 mls/hr Oxycodone/Acetaminophen (Percocet 5/325 Mg Tab) 1 tab PO Q4H PRN PRN Reason: Pain, moderate (4-7) Stop: 11/11/16 11:43 Last Admin: 11/10/16 05:44 Dose: 1 tab Pantoprazole Sodium (Protonix Ec Tab) 40 mg PO ACB [facility] Last Admin: 11/10/16 06:51 Dose: 40 mg - Labs Labs: 11/09/16 07:35 11/09/16 07:35 PT 11.5 SECONDS (9.7-12.2) 11/06/16 03:37 INR 1.0 11/06/16 03:37 APTT 36 SECONDS (21-34) H 11/06/16 03:37 - Constitutional Appears: No Acute Distress - Head Exam Head Exam: NORMOCEPHALIC - Eye Exam Eye Exam: Normal appearance - ENT Exam ENT Exam: Mucous Membranes Moist - Respiratory Exam Respiratory Exam: NORMAL BREATHING PATTERN - Cardiovascular Exam Cardiovascular Exam: +S1, +S2 - GI/Abdominal Exam GI & Abdominal Exam: Soft. absent: Distended, Firm, Guarding, Rigid - Neurological Exam Neurological Exam: Alert, Awake, Oriented x3 - Psychiatric Exam Psychiatric exam: Normal Mood - Skin Skin Exam: Normal Color, Warm Assessment and Plan - Assessment and Plan (Free Text) Assessment: 76 y/o M s/p L hemicolectomy w/ colostomy, reversal, jejunostomy, and enterocutaneous fistula. - Awaiting Fistulagram -Still no output from colostomy - keep abd clean and dry --> change dressings PRN -C/w wound care - IV Abx per PMD - pain management Further recs per Dr. Gil
--- NOTE | 2016-11-10 09:56 | CP.PCM.PN ---
Subjective - Date & Time of Evaluation Date of Evaluation: 11/10/16 Time of Evaluation: 11:00 - Subjective Subjective: clnically same Objective - Vital Signs/Intake and Output Vital Signs (last 24 hours): Temp Pulse Resp BP Pulse Ox 98.2 F 99 H 20 102/65 97 11/10/16 08:27 11/10/16 08:27 11/10/16 08:27 11/10/16 08:27 11/10/16 08:27 Intake and Output: 11/10/16 11/10/16 06:59 18:59 Intake Total 887.5 Output Total 1370 Balance -482.5 - Medications Medications: Current Medications Acetaminophen (Tylenol 325mg Tab) 650 mg PO Q6 PRN PRN Reason: Pain, Mild (1-3) Hydromorphone HCl (Dilaudid) 0.5 mg IVP Q4H PRN PRN Reason: Pain, severe (8-10) Last Admin: 11/08/16 11:37 Dose: 0.5 mg Cefepime HCl (Maxipime Iv 1 Gm Premix) 1 gm in 50 mls @ 100 mls/hr IVPB Q12H [facility] Last Admin: 11/10/16 04:58 Dose: 100 mls/hr Metronidazole (Flagyl) 500 mg in 100 mls @ 100 mls/hr IVPB Q12H [facility] Last Admin: 11/10/16 05:46 Dose: 100 mls/hr Oxycodone/Acetaminophen (Percocet 5/325 Mg Tab) 1 tab PO Q4H PRN PRN Reason: Pain, moderate (4-7) Stop: 11/11/16 11:43 Last Admin: 11/10/16 05:44 Dose: 1 tab Pantoprazole Sodium (Protonix Ec Tab) 40 mg PO ACB [facility] Last Admin: 11/10/16 06:51 Dose: 40 mg - Labs Labs: 11/09/16 07:35 11/09/16 07:35 PT 11.5 SECONDS (9.7-12.2) 11/06/16 03:37 INR 1.0 11/06/16 03:37 APTT 36 SECONDS (21-34) H 11/06/16 03:37 - Constitutional Appears: Well - Head Exam Head Exam: ATRAUMATIC, NORMAL INSPECTION, NORMOCEPHALIC - Eye Exam Eye Exam: EOMI, Normal appearance, PERRL Pupil Exam: NORMAL ACCOMODATION, PERRL - ENT Exam ENT Exam: Mucous Membranes Moist, Normal Exam - Neck Exam Neck Exam: Full ROM, Normal Inspection. absent: Lymphadenopathy - Respiratory Exam Respiratory Exam: Decreased Breath Sounds - Cardiovascular Exam Cardiovascular Exam: REGULAR RHYTHM, +S1, +S2 - GI/Abdominal Exam GI & Abdominal Exam: Soft, Diminished Bowel Sounds - Rectal Exam Rectal Exam: Deferred Assessment and Plan (1) Acute blood loss anemia Status: Acute (2) Anastomotic leak of intestine Status: Acute (3) Anemia Status: Acute (4) Cholecystitis without cholelithiasis Status: Acute (5) Colon polyps Status: Acute (6) Diabetes Status: Acute (7) Gastrointestinal hemorrhage Status: Acute (8) Iron deficiency anemia Status: Acute (9) Prophylactic measure Status: Acute (10) Weight loss Status: Acute (11) Diverticulosis large intestine w/o perforation or abscess w/o bleeding Status: Chronic (12) Diverticulosis of colon Status: Chronic (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
[2016-11-10 12:12] LABS: CHLORIDE 100 mmol/L (98-107); POTASSIUM 4.1 mmol/L (3.6-5.2); SODIUM 134 mmol/L (132-148)
[2016-11-10 12:14] LABS: GFR AFRICAN-AMERICAN > 60
[2016-11-10 12:15] LABS: BLOOD UREA NITROGEN 3 mg/dL (9-20); CARBON DIOXIDE 23 mmol/L (22-30)
[2016-11-10 12:16] LABS: CALCIUM 7.5 mg/dl (8.6-10.4); GLUCOSE,RANDOM 141 mg/dL (75-110)
--- NOTE | 2016-11-10 13:06 | RAD ---
HISTORY: s/p fistulagram COMPARISON: CT abdomen performed 02/09/16, CT the abdomen and pelvis with contrast performed 10/20/16 FINDINGS: Nonobstructive bowel gas pattern. No definite free air. Probable left lower quadrant colostomy. Extensive degenerative changes of the spine and pelvis. IMPRESSION: No evidence of bowel obstruction.
[2016-11-11] MEDS: Oxycodone/Acetaminophen 5/325 mg Tab PO PRN ×2 (01:34→09:55)
[2016-11-11] MEDS: Cefepime IV 1 gm in Dextrose 1 GM/50 ML BAG IVPB SCH ×2 (04:33→17:00)
[2016-11-11] MEDS: Pantoprazole 40 mg EC Tab PO SCH (06:32)
[2016-11-11] MEDS: metroNIDAZOLE IV 500 mg/100 ml 500 MG/100 ML BAG IVPB SCH ×2 (06:32→17:49)
--- NOTE | 2016-11-11 10:20 | CP.PCM.PN ---
Subjective - Date & Time of Evaluation Date of Evaluation: 11/11/16 Time of Evaluation: 07:20 - Subjective Subjective: General Surgery Pt S&E, NAEO. No complaints. No output from colostomy. Denies nausea/vomiting, abdominal pain. Tolerating diet. Objective - Vital Signs/Intake and Output Vital Signs (last 24 hours): Temp Pulse Resp BP Pulse Ox 98.0 F 113 H 20 98/66 L 96 11/11/16 09:10 11/11/16 09:10 11/11/16 09:10 11/11/16 09:10 11/11/16 09:10 Intake and Output: 11/11/16 11/11/16 06:59 18:59 Intake Total 800 Output Total 370 Balance 430 - Medications Medications: Current Medications Acetaminophen (Tylenol 325mg Tab) 650 mg PO Q6 PRN PRN Reason: Pain, Mild (1-3) Hydromorphone HCl (Dilaudid) 0.5 mg IVP Q4H PRN PRN Reason: Pain, severe (8-10) Last Admin: 11/08/16 11:37 Dose: 0.5 mg Cefepime HCl (Maxipime Iv 1 Gm Premix) 1 gm in 50 mls @ 100 mls/hr IVPB Q12H [facility] Last Admin: 11/11/16 04:33 Dose: 100 mls/hr Metronidazole (Flagyl) 500 mg in 100 mls @ 100 mls/hr IVPB Q12H [facility] Last Admin: 11/11/16 06:32 Dose: 100 mls/hr Oxycodone/Acetaminophen (Percocet 5/325 Mg Tab) 1 tab PO Q4H PRN PRN Reason: Pain, moderate (4-7) Stop: 11/11/16 11:43 Last Admin: 11/11/16 09:55 Dose: 1 tab Pantoprazole Sodium (Protonix Ec Tab) 40 mg PO ACB [facility] Last Admin: 11/11/16 06:32 Dose: 40 mg - Labs Labs: 11/09/16 07:35 11/10/16 11:58 PT 11.5 SECONDS (9.7-12.2) 11/06/16 03:37 INR 1.0 11/06/16 03:37 APTT 36 SECONDS (21-34) H 11/06/16 03:37 - Constitutional Appears: Non-toxic, No Acute Distress - Head Exam Head Exam: ATRAUMATIC, NORMOCEPHALIC - Respiratory Exam Respiratory Exam: NORMAL BREATHING PATTERN. absent: Respiratory Distress - GI/Abdominal Exam GI & Abdominal Exam: Soft. absent: Distended, Firm, Guarding, Rigid, Tenderness Additional comments: fistula draining liquid stool ostomy pink, viable - Neurological Exam Neurological Exam: Alert, Awake, Oriented x3 - Skin Skin Exam: Dry, Warm Assessment and Plan - Assessment and Plan (Free Text) Assessment: 76M s/p L hemicolectomy w/ colostomy, reversal, jejunostomy, and enterocutaneous fistula. Plan: Fistulagram did not get contrast into fistula. repeated abd XR shows no contrast in abd Keep abd clean and dry --> change dressings PRN C/w wound care Abx per PMD Pain management Further recs per Dr. Gil D/W Dr. Jeffery Isaac PGY3
--- NOTE | 2016-11-11 19:26 | CP.PCM.PN ---
Subjective - Date & Time of Evaluation Date of Evaluation: 11/11/16 Time of Evaluation: 10:20 - Subjective Subjective: Clinically same Objective - Vital Signs/Intake and Output Vital Signs (last 24 hours): Temp Pulse Resp BP Pulse Ox 97.6 F 88 20 107/66 97 11/11/16 15:28 11/11/16 15:28 11/11/16 15:28 11/11/16 15:28 11/11/16 15:28 - Medications Medications: Current Medications Acetaminophen (Tylenol 325mg Tab) 650 mg PO Q6 PRN PRN Reason: Pain, Mild (1-3) Hydromorphone HCl (Dilaudid) 0.5 mg IVP Q4H PRN PRN Reason: Pain, severe (8-10) Last Admin: 11/08/16 11:37 Dose: 0.5 mg Metronidazole (Flagyl) 500 mg in 100 mls @ 100 mls/hr IVPB Q12H [facility] Last Admin: 11/11/16 17:49 Dose: 100 mls/hr Pantoprazole Sodium (Protonix Ec Tab) 40 mg PO ACB [facility] Last Admin: 11/11/16 06:32 Dose: 40 mg - Labs Labs: 11/09/16 07:35 11/10/16 11:58 PT 11.5 SECONDS (9.7-12.2) 11/06/16 03:37 INR 1.0 11/06/16 03:37 APTT 36 SECONDS (21-34) H 11/06/16 03:37 Assessment and Plan (1) Acute blood loss anemia Status: Acute (2) Anastomotic leak of intestine Status: Acute (3) Anemia Status: Acute (4) Cholecystitis without cholelithiasis Status: Acute (5) Colon polyps Status: Acute (6) Diabetes Status: Acute (7) Gastrointestinal hemorrhage Status: Acute (8) Iron deficiency anemia Status: Acute (9) Prophylactic measure Status: Acute (10) Weight loss Status: Acute (11) Diverticulosis large intestine w/o perforation or abscess w/o bleeding Status: Chronic (12) Diverticulosis of colon Status: Chronic (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
[2016-11-12] MEDS: Pantoprazole 40 mg EC Tab PO SCH (10:41)
--- NOTE | 2016-11-12 15:51 | CP.PCM.PN ---
Subjective - Date & Time of Evaluation Date of Evaluation: 11/12/16 Time of Evaluation: 15:48 - Subjective Subjective: Surgery: Dr. Gil Pt seen and examined. He if frustrated about his fistula. Otherwise he has no complaints. Objective - Vital Signs/Intake and Output Vital Signs (last 24 hours): Temp Pulse Resp BP Pulse Ox 97.9 F 76 20 102/68 99 11/12/16 07:15 11/12/16 07:15 11/12/16 07:15 11/12/16 07:15 11/12/16 07:15 Intake and Output: 11/12/16 11/12/16 06:59 18:59 Intake Total 440 Output Total 460 Balance -20 - Medications Medications: Current Medications Acetaminophen (Tylenol 325mg Tab) 650 mg PO Q6 PRN PRN Reason: Pain, Mild (1-3) Last Admin: 11/12/16 10:44 Dose: 650 mg Cefepime HCl (Maxipime Iv 1 Gm Premix) 1 gm in 50 mls @ 100 mls/hr IVPB Q12H [facility] Metronidazole (Flagyl) 500 mg in 100 mls @ 100 mls/hr IVPB Q12 [facility] Pantoprazole Sodium (Protonix Ec Tab) 40 mg PO ACB [facility] Last Admin: 11/12/16 10:41 Dose: 40 mg - Labs Labs: 11/09/16 07:35 11/10/16 11:58 PT 11.5 SECONDS (9.7-12.2) 11/06/16 03:37 INR 1.0 11/06/16 03:37 APTT 36 SECONDS (21-34) H 11/06/16 03:37 - Constitutional Appears: Non-toxic, No Acute Distress - Head Exam Head Exam: ATRAUMATIC, NORMOCEPHALIC - Eye Exam Eye Exam: EOMI. absent: Scleral icterus - ENT Exam ENT Exam: Mucous Membranes Moist - Neck Exam Neck Exam: Full ROM - Respiratory Exam Respiratory Exam: NORMAL BREATHING PATTERN. absent: Accessory Muscle Use, Respiratory Distress - GI/Abdominal Exam GI & Abdominal Exam: Soft. absent: Tenderness Additional comments: Enterocutaneous fistula w. feculent appearing output - Extremities Exam Extremities Exam: absent: Calf Tenderness, Pedal Edema - Neurological Exam Neurological Exam: Alert, Awake, Oriented x3 Assessment and Plan - Assessment and Plan (Free Text) Assessment: 76M s/p L hemicolectomy w/ colostomy, reversal, jejunostomy, and enterocutaneous fistula. -PICC line for TPN -Follow up nutrition recommendations -Will attempt trial of NPO w. TPN and octreotide to see if fistula output decreases -d/w attending Ady PGY2
[2016-11-12] MEDS: Cefepime IV 1 gm in Dextrose 1 GM/50 ML BAG IVPB SCH (18:06)
--- NOTE | 2016-11-12 18:38 | CP.PCM.PN ---
Subjective - Date & Time of Evaluation Date of Evaluation: 11/12/16 Time of Evaluation: 11:20 - Subjective Subjective: clinically same Objective - Vital Signs/Intake and Output Vital Signs (last 24 hours): Temp Pulse Resp BP Pulse Ox 97.9 F 90 20 101/64 98 11/12/16 15:04 11/12/16 15:04 11/12/16 15:04 11/12/16 15:04 11/12/16 15:04 Intake and Output: 11/12/16 11/12/16 06:59 18:59 Intake Total 440 Output Total 460 Balance -20 - Medications Medications: Current Medications Acetaminophen (Tylenol 325mg Tab) 650 mg PO Q6 PRN PRN Reason: Pain, Mild (1-3) Last Admin: 11/12/16 10:44 Dose: 650 mg Cefepime HCl (Maxipime Iv 1 Gm Premix) 1 gm in 50 mls @ 100 mls/hr IVPB Q12H [facility] Last Admin: 11/12/16 18:06 Dose: 100 mls/hr Metronidazole (Flagyl) 500 mg in 100 mls @ 100 mls/hr IVPB Q12 [facility] Pantoprazole Sodium (Protonix Ec Tab) 40 mg PO ACB [facility] Last Admin: 11/12/16 10:41 Dose: 40 mg - Labs Labs: 11/09/16 07:35 11/10/16 11:58 PT 11.5 SECONDS (9.7-12.2) 11/06/16 03:37 INR 1.0 11/06/16 03:37 APTT 36 SECONDS (21-34) H 11/06/16 03:37 - Constitutional Appears: Well - Head Exam Head Exam: ATRAUMATIC, NORMAL INSPECTION, NORMOCEPHALIC - Eye Exam Eye Exam: EOMI, Normal appearance, PERRL Pupil Exam: NORMAL ACCOMODATION, PERRL - ENT Exam ENT Exam: Mucous Membranes Moist, Normal Exam - Neck Exam Neck Exam: Full ROM, Normal Inspection. absent: Lymphadenopathy - Respiratory Exam Respiratory Exam: Decreased Breath Sounds - Cardiovascular Exam Cardiovascular Exam: REGULAR RHYTHM, +S1, +S2 - GI/Abdominal Exam GI & Abdominal Exam: Soft, Diminished Bowel Sounds - Rectal Exam Rectal Exam: Deferred Assessment and Plan (1) Acute blood loss anemia Status: Acute (2) Anastomotic leak of intestine Status: Acute (3) Anemia Status: Acute (4) Cholecystitis without cholelithiasis Status: Acute (5) Colon polyps Status: Acute (6) Diabetes Status: Acute (7) Gastrointestinal hemorrhage Status: Acute (8) Iron deficiency anemia Status: Acute (9) Prophylactic measure Status: Acute (10) Weight loss Status: Acute (11) Diverticulosis large intestine w/o perforation or abscess w/o bleeding Status: Chronic (12) Diverticulosis of colon Status: Chronic (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
[2016-11-12] MEDS: metroNIDAZOLE IV 500 mg/100 ml 500 MG/100 ML BAG IVPB SCH (21:42)
[2016-11-13] MEDS: Cefepime IV 1 gm in Dextrose 1 GM/50 ML BAG IVPB SCH ×2 (03:27→14:32)
[2016-11-13] MEDS: Pantoprazole 40 mg EC Tab PO SCH (06:32)
--- NOTE | 2016-11-13 09:43 | CP.PCM.PN ---
Subjective - Date & Time of Evaluation Date of Evaluation: 11/13/16 Time of Evaluation: 09:40 - Subjective Subjective: PGY1 progress note for Dr. Gli Patient seen and examined. Patient resting comfortably. Patient states he understands plan to get PICC line and start TPN. Patient expressed understanding that he will be NPO. Objective - Vital Signs/Intake and Output Vital Signs (last 24 hours): Temp Pulse Resp BP Pulse Ox 97.3 F L 95 H 20 114/51 L 100 11/13/16 08:00 11/13/16 08:00 11/13/16 08:00 11/13/16 08:00 11/13/16 08:00 Intake and Output: 11/13/16 11/13/16 06:59 18:59 Intake Total 300 Output Total 440 Balance -140 - Medications Medications: Current Medications Acetaminophen (Tylenol 325mg Tab) 650 mg PO Q6 PRN PRN Reason: Pain, Mild (1-3) Last Admin: 11/12/16 10:44 Dose: 650 mg Cefepime HCl (Maxipime Iv 1 Gm Premix) 1 gm in 50 mls @ 100 mls/hr IVPB Q12H [facility] Last Admin: 11/13/16 03:27 Dose: 100 mls/hr Metronidazole (Flagyl) 500 mg in 100 mls @ 100 mls/hr IVPB Q12 [facility] Last Admin: 11/12/16 21:42 Dose: 100 mls/hr Pantoprazole Sodium (Protonix Ec Tab) 40 mg PO ACB [facility] Last Admin: 11/13/16 06:32 Dose: 40 mg - Labs Labs: 11/09/16 07:35 11/10/16 11:58 PT 11.5 SECONDS (9.7-12.2) 11/06/16 03:37 INR 1.0 11/06/16 03:37 APTT 36 SECONDS (21-34) H 11/06/16 03:37 - Constitutional Appears: Non-toxic, No Acute Distress - Head Exam Head Exam: ATRAUMATIC, NORMOCEPHALIC - Eye Exam Eye Exam: EOMI - ENT Exam ENT Exam: Mucous Membranes Moist - Respiratory Exam Respiratory Exam: NORMAL BREATHING PATTERN - GI/Abdominal Exam Additional comments: 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 Gil
[2016-11-13] MEDS: metroNIDAZOLE IV 500 mg/100 ml 500 MG/100 ML BAG IVPB SCH ×2 (10:30→22:04)
--- NOTE | 2016-11-13 16:51 | CP.PCM.PN ---
Subjective - Date & Time of Evaluation Date of Evaluation: 11/13/16 Time of Evaluation: 12:20 - Subjective Subjective: clinically same Objective - Vital Signs/Intake and Output Vital Signs (last 24 hours): Temp Pulse Resp BP Pulse Ox 98.5 F 94 H 20 103/67 100 11/13/16 16:37 11/13/16 16:37 11/13/16 16:37 11/13/16 16:37 11/13/16 16:37 Intake and Output: 11/13/16 11/13/16 06:59 18:59 Intake Total 300 Output Total 440 Balance -140 - Medications Medications: Current Medications Acetaminophen (Tylenol 325mg Tab) 650 mg PO Q6 PRN PRN Reason: Pain, Mild (1-3) Last Admin: 11/12/16 10:44 Dose: 650 mg Cefepime HCl (Maxipime Iv 1 Gm Premix) 1 gm in 50 mls @ 100 mls/hr IVPB Q12H [facility] Last Admin: 11/13/16 14:32 Dose: 100 mls/hr Metronidazole (Flagyl) 500 mg in 100 mls @ 100 mls/hr IVPB Q12 [facility] Last Admin: 11/13/16 10:30 Dose: 100 mls/hr Pantoprazole Sodium (Protonix Ec Tab) 40 mg PO ACB [facility] Last Admin: 11/13/16 06:32 Dose: 40 mg - Labs Labs: 11/09/16 07:35 11/10/16 11:58 PT 11.5 SECONDS (9.7-12.2) 11/06/16 03:37 INR 1.0 11/06/16 03:37 APTT 36 SECONDS (21-34) H 11/06/16 03:37 - Constitutional Appears: Well - Head Exam Head Exam: ATRAUMATIC, NORMAL INSPECTION, NORMOCEPHALIC - Eye Exam Eye Exam: EOMI, Normal appearance, PERRL Pupil Exam: NORMAL ACCOMODATION, PERRL - ENT Exam ENT Exam: Mucous Membranes Moist, Normal Exam - Neck Exam Neck Exam: Full ROM, Normal Inspection. absent: Lymphadenopathy - Respiratory Exam Respiratory Exam: Decreased Breath Sounds - Cardiovascular Exam Cardiovascular Exam: REGULAR RHYTHM, +S1, +S2 - GI/Abdominal Exam GI & Abdominal Exam: Soft, Diminished Bowel Sounds - Rectal Exam Rectal Exam: Deferred Assessment and Plan (1) Acute blood loss anemia Status: Acute (2) Anastomotic leak of intestine Status: Acute (3) Anemia Status: Acute (4) Cholecystitis without cholelithiasis Status: Acute (5) Colon polyps Status: Acute (6) Diabetes Status: Acute (7) Gastrointestinal hemorrhage Status: Acute (8) Iron deficiency anemia Status: Acute (9) Prophylactic measure Status: Acute (10) Weight loss Status: Acute (11) Diverticulosis large intestine w/o perforation or abscess w/o bleeding Status: Chronic (12) Diverticulosis of colon Status: Chronic (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 Hernandez on board Plan for TPN PICC line advised Continue antibiotics Tylenol Ostomy care
[2016-11-14] MEDS: Cefepime IV 1 gm in Dextrose 1 GM/50 ML BAG IVPB SCH ×3 (02:14→14:34)
[2016-11-14] MEDS: Pantoprazole 40 mg EC Tab PO SCH (08:30)
[2016-11-14] MEDS: metroNIDAZOLE IV 500 mg/100 ml 500 MG/100 ML BAG IVPB SCH ×2 (10:32→22:34)
--- NOTE | 2016-11-14 14:56 | RAD ---
HISTORY: verify right PICC COMPARISON: Chest x-ray performed 08/21/16 TECHNIQUE: Chest, one view. FINDINGS: Right-sided PICC extends to the expected location of the SVC. LUNGS: No focal consolidation. Please note that chest x-ray has limited sensitivity for the detection of pulmonary masses. PLEURA: No significant pleural effusion identified. No definite pneumothorax . CARDIOVASCULAR: Size appears within normal limits. Atherosclerotic calcifications of the aorta. OSSEOUS STRUCTURES: Degenerative changes of the spine. VISUALIZED UPPER ABDOMEN: Unremarkable. OTHER FINDINGS: None. IMPRESSION: Right-sided PICC extends to the expected location of the SVC. No definite pneumothorax.
--- NOTE | 2016-11-14 17:06 | CP.PCM.PN ---
Subjective - Date & Time of Evaluation Date of Evaluation: 11/14/16 Time of Evaluation: 17:02 - Subjective Subjective: Surgery: Dr. Gil Patient doing well today. Patient refused PICC yesterday stating he wanted to speak with Dr. Gil about TPN. Per nursing EC fistula output was 350cc/12hr. Objective - Vital Signs/Intake and Output Vital Signs (last 24 hours): Temp Pulse Resp BP Pulse Ox 97.3 F L 89 20 122/73 99 11/14/16 15:54 11/14/16 15:54 11/14/16 15:54 11/14/16 15:54 11/14/16 15:54 Intake and Output: 11/14/16 11/14/16 06:59 18:59 Intake Total 340 Output Total 750 Balance -410 - Medications Medications: Current Medications Acetaminophen (Tylenol 325mg Tab) 650 mg PO Q6 PRN PRN Reason: Pain, Mild (1-3) Last Admin: 11/12/16 10:44 Dose: 650 mg Cefepime HCl (Maxipime Iv 1 Gm Premix) 1 gm in 50 mls @ 100 mls/hr IVPB Q12H [facility] Last Admin: 11/14/16 14:34 Dose: Not Given Metronidazole (Flagyl) 500 mg in 100 mls @ 100 mls/hr IVPB Q12 [facility] Last Admin: 11/14/16 10:32 Dose: 100 mls/hr Pantoprazole Sodium (Protonix Ec Tab) 40 mg PO ACB [facility] Last Admin: 11/14/16 08:30 Dose: 40 mg - Labs Labs: 11/09/16 07:35 11/10/16 11:58 PT 11.5 SECONDS (9.7-12.2) 11/06/16 03:37 INR 1.0 11/06/16 03:37 APTT 36 SECONDS (21-34) H 11/06/16 03:37 - Constitutional Appears: Well, Non-toxic, No Acute Distress - Head Exam Head Exam: ATRAUMATIC, NORMOCEPHALIC - Eye Exam Eye Exam: EOMI, Normal appearance - ENT Exam ENT Exam: Mucous Membranes Moist - Respiratory Exam Respiratory Exam: NORMAL BREATHING PATTERN. absent: Respiratory Distress - Cardiovascular Exam Cardiovascular Exam: REGULAR RHYTHM. absent: Tachycardia - GI/Abdominal Exam GI & Abdominal Exam: Soft. absent: Distended, Tenderness Additional comments: midline EC fistula - Extremities Exam Extremities Exam: Normal Inspection. absent: Calf Tenderness - Neurological Exam Neurological Exam: Alert, Awake, Oriented x3 - Psychiatric Exam Psychiatric exam: Normal Affect, Normal Mood Assessment and Plan - Assessment and Plan (Free Text) Assessment: 76 y/o male w/ EC fistula Plan: -patient for PICC line -start TPN and maintain NPO -monitor EC fistula output -once heals can restart diet -further recs per Dr. Jeffery Schuster PGY1
--- NOTE | 2016-11-14 18:50 | CP.PCM.PN ---
Subjective - Date & Time of Evaluation Date of Evaluation: 11/14/16 Time of Evaluation: 12:40 - Subjective Subjective: clinicaly same Objective - Vital Signs/Intake and Output Vital Signs (last 24 hours): Temp Pulse Resp BP Pulse Ox 97.3 F L 89 20 122/73 99 11/14/16 15:54 11/14/16 15:54 11/14/16 15:54 11/14/16 15:54 11/14/16 15:54 Intake and Output: 11/14/16 11/14/16 06:59 18:59 Intake Total 340 Output Total 750 Balance -410 - Medications Medications: Current Medications Acetaminophen (Tylenol 325mg Tab) 650 mg PO Q6 PRN PRN Reason: Pain, Mild (1-3) Last Admin: 11/12/16 10:44 Dose: 650 mg Cefepime HCl (Maxipime Iv 1 Gm Premix) 1 gm in 50 mls @ 100 mls/hr IVPB Q12H [facility] Last Admin: 11/14/16 14:34 Dose: Not Given Metronidazole (Flagyl) 500 mg in 100 mls @ 100 mls/hr IVPB Q12 [facility] Last Admin: 11/14/16 10:32 Dose: 100 mls/hr Pantoprazole Sodium (Protonix Ec Tab) 40 mg PO ACB [facility] Last Admin: 11/14/16 08:30 Dose: 40 mg - Labs Labs: 11/09/16 07:35 11/10/16 11:58 PT 11.5 SECONDS (9.7-12.2) 11/06/16 03:37 INR 1.0 11/06/16 03:37 APTT 36 SECONDS (21-34) H 11/06/16 03:37 - Constitutional Appears: Well - Head Exam Head Exam: ATRAUMATIC, NORMAL INSPECTION, NORMOCEPHALIC - Eye Exam Eye Exam: EOMI, Normal appearance, PERRL Pupil Exam: NORMAL ACCOMODATION, PERRL - ENT Exam ENT Exam: Mucous Membranes Moist, Normal Exam - Neck Exam Neck Exam: Full ROM, Normal Inspection. absent: Lymphadenopathy - Respiratory Exam Respiratory Exam: Decreased Breath Sounds - Cardiovascular Exam Cardiovascular Exam: REGULAR RHYTHM, +S1, +S2 - GI/Abdominal Exam GI & Abdominal Exam: Soft, Diminished Bowel Sounds - Rectal Exam Rectal Exam: Deferred Assessment and Plan (1) Acute blood loss anemia Status: Acute (2) Anastomotic leak of intestine Status: Acute (3) Anemia Status: Acute (4) Cholecystitis without cholelithiasis Status: Acute (5) Colon polyps Status: Acute (6) Diabetes Status: Acute (7) Gastrointestinal hemorrhage Status: Acute (8) Iron deficiency anemia Status: Acute (9) Prophylactic measure Status: Acute (10) Weight loss Status: Acute (11) Diverticulosis large intestine w/o perforation or abscess w/o bleeding Status: Chronic (12) Diverticulosis of colon Status: Chronic (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 Gil on board Ostomy care
[2016-11-15] MEDS: Cefepime IV 1 gm in Dextrose 1 GM/50 ML BAG IVPB SCH ×2 (02:36→14:33)
[2016-11-15 06:24] LABS: BASO % 0.4 % (0.0-2.0); EOS # 0.1 K/uL (0.0-0.7); EOS % 0.9 % (0.0-4.0); HEMATOCRIT 30.1 % (35.0-51.0); LYMPH # 1.1 K/uL (1.0-4.3); MEAN CELL VOLUME 96.1 fL (80.0-94.0); MEAN CORPUSCULAR HEMOGLOBIN 32.7 pg (27.0-31.0); MEAN PLATELET VOLUME 6.5 fL (7.2-11.7); MONO # 0.4 K/uL (0.0-0.8); MONO % 5.8 % (0.0-10.0); RED CELL DISTRIBUTION WIDTH 17.3 % (11.5-14.5); WHITE BLOOD COUNT 7.6 K/uL (4.8-10.8)
[2016-11-15] MEDS: Pantoprazole 40 mg EC Tab PO SCH (06:33)
[2016-11-15 06:51] LABS: CHLORIDE 97 mmol/L (98-107); POTASSIUM 3.7 mmol/L (3.6-5.2); SODIUM 132 mmol/L (132-148)
[2016-11-15 06:53] LABS: AST/SGOT 55 U/L (17-59); BILIRUBIN,TOTAL 1.1 mg/dL (0.2-1.3); CARBON DIOXIDE 29 mmol/L (22-30); GFR AFRICAN-AMERICAN > 60
[2016-11-15 06:54] LABS: ALB/GLOB RATIO 0.8 (1.0-2.1); ALKALINE PHOSPHATASE 466 U/L (38-126); ALT/SGPT 97 U/L (21-72); BLOOD UREA NITROGEN 10 mg/dL (9-20); CALCIUM 6.8 mg/dl (8.6-10.4); GLUCOSE,RANDOM 92 mg/dL (75-110); TOTAL PROTEIN 5.5 g/dL (6.3-8.3)
[2016-11-15 08:13] VITALS: TEMP 98.2; O2SAT 98
[2016-11-15] MEDS: metroNIDAZOLE IV 500 mg/100 ml 500 MG/100 ML BAG IVPB SCH (10:00)
--- NOTE | 2016-11-15 14:57 | CP.PCM.PN ---
Subjective - Date & Time of Evaluation Date of Evaluation: 11/15/16 Time of Evaluation: 14:54 - Subjective Subjective: Surgery: Dr. Gil Patient doing well. NO complaints. Patient s/p PICC line insertion. Per nursing no acute events. Objective - Vital Signs/Intake and Output Vital Signs (last 24 hours): Temp Pulse Resp BP Pulse Ox 98.2 F 93 H 20 114/74 98 11/15/16 08:11 11/15/16 08:11 11/15/16 08:11 11/15/16 08:11 11/15/16 08:11 Intake and Output: 11/15/16 11/15/16 06:59 18:59 Intake Total 630 Output Total 1000 Balance -370 - Medications Medications: Current Medications Acetaminophen (Tylenol 325mg Tab) 650 mg PO Q6 PRN PRN Reason: Pain, Mild (1-3) Last Admin: 11/12/16 10:44 Dose: 650 mg Cefepime HCl (Maxipime Iv 1 Gm Premix) 1 gm in 50 mls @ 100 mls/hr IVPB Q12H [facility] Last Admin: 11/15/16 14:33 Dose: 100 mls/hr Metronidazole (Flagyl) 500 mg in 100 mls @ 100 mls/hr IVPB Q12 [facility] Last Admin: 11/15/16 10:00 Dose: 100 mls/hr Multivitamins/Vitamin C 10 ml/Heparin Sodium (Porcine) 1, 000 units/ Amino Acids /Electrolytes/Dextrose 1,011 mls @ 63 mls/hr IV .Q16H3M ONE Stop: 11/16/16 10:02 Heparin Sodium (Porcine) 1,000 units/ Amino Acids/Electrolytes/Dextrose 1,001 mls @ 63 mls/hr IV .[id number] [facility] Stop: 11/16/16 17:59 Pantoprazole Sodium (Protonix Ec Tab) 40 mg PO ACB [facility] Last Admin: 11/15/16 06:33 Dose: 40 mg - Labs Labs: 11/15/16 06:12 11/15/16 06:12 PT 11.5 SECONDS (9.7-12.2) 11/06/16 03:37 INR 1.0 11/06/16 03:37 APTT 36 SECONDS (21-34) H 11/06/16 03:37 - Constitutional Appears: Non-toxic, No Acute Distress - Head Exam Head Exam: ATRAUMATIC, NORMOCEPHALIC - Eye Exam Eye Exam: EOMI, Normal appearance - ENT Exam ENT Exam: Mucous Membranes Moist - Respiratory Exam Respiratory Exam: NORMAL BREATHING PATTERN. absent: Respiratory Distress - Cardiovascular Exam Cardiovascular Exam: REGULAR RHYTHM. absent: Tachycardia - GI/Abdominal Exam GI & Abdominal Exam: Soft. absent: Distended, Tenderness Assessment and Plan - Assessment and Plan (Free Text) Assessment: 76 y/o male w/ EC fistula Plan: -patient for TPN to start tonight -once TPN is started make patient NPO -patient will cont TPN and NPO status untill EC fistula closes/heals -no further surgical intervention at this time AKWhite PGY1
[2016-11-15 16:12] VITALS: BP 111/70
--- NOTE | 2016-11-15 17:29 | CP.PCM.PN ---
Subjective - Date & Time of Evaluation Date of Evaluation: 11/15/16 Time of Evaluation: 17:25 - Subjective Subjective: PT SEEN AND EXAMINED TODAY BY DR Derik LARIOS, PT D/C TO [facility] TODAY PER DR Derik LARIOS, PT REMAIN AWAKE, ALERT, RESP EASY AND UNLABORED,NAD, PT WILL BE GETTING CLINIMIX, NPO UNTIL FISTULA CLOSES/HEALS, ASPIRATIONS PRECAUTIONS, CONTINUE MEDS PER MED REC, PT AGREE W/POC, VERBALIZE UNDERSTANDING. Objective - Vital Signs/Intake and Output Vital Signs (last 24 hours): Temp Pulse Resp BP Pulse Ox 98.2 F 93 H 20 111/70 98 11/15/16 15:11 11/15/16 15:11 11/15/16 15:11 11/15/16 15:11 11/15/16 15:11 Intake and Output: 11/15/16 11/15/16 06:59 18:59 Intake Total 630 Output Total 1000 Balance -370 - Medications Medications: Current Medications Acetaminophen (Tylenol 325mg Tab) 650 mg PO Q6 PRN PRN Reason: Pain, Mild (1-3) Last Admin: 11/12/16 10:44 Dose: 650 mg Cefepime HCl (Maxipime Iv 1 Gm Premix) 1 gm in 50 mls @ 100 mls/hr IVPB Q12H [facility] Last Admin: 11/15/16 14:33 Dose: 100 mls/hr Metronidazole (Flagyl) 500 mg in 100 mls @ 100 mls/hr IVPB Q12 [facility] Last Admin: 11/15/16 10:00 Dose: 100 mls/hr Multivitamins/Vitamin C 10 ml/Heparin Sodium (Porcine) 1, 000 units/ Amino Acids /Electrolytes/Dextrose 1,011 mls @ 63 mls/hr IV .Q16H3M [facility] Stop: 11/16/16 10:02 Last Admin: 11/15/16 17:04 Dose: 63 mls/hr Heparin Sodium (Porcine) 1,000 units/ Amino Acids/Electrolytes/Dextrose 1,001 mls @ 63 mls/hr IV .[id number] COUNT INCLUDES THE [facility] Stop: 11/16/16 17:59 Pantoprazole Sodium (Protonix Ec Tab) 40 mg PO ACB [facility] Last Admin: 11/15/16 06:33 Dose: 40 mg - Labs Labs: 11/15/16 06:12 05/04/17 06:12 PT 11.5 SECONDS (9.7-12.2) 11/06/16 03:37 INR 1.0 11/06/16 03:37 APTT 36 SECONDS (21-34) H 11/06/16 03:37
[2016-11-15] MEDS ORDERED: TPN #1 IV ONE (18:00)
[2016-11-15 19:10] VITALS: PULSE 84
[2016-11-16] MEDS ORDERED: TPN #2 IV SCH (10:03)
--- NOTE | 2017-01-14 11:09 | SPECPROC ---
Interrogation of enterocutaneous fistula History: Enterocutaneous fistula. Comparison: Comparison is made to prior CT from 10/20/2016. Procedure and findings: Informed consent was obtained. An angled angiographic catheter was introduced into the right lower quadrant fistula and a small amount of contrast was injected. The contrast did not extend into the small bowel. Small pocket of contrast was identified. Fluoroscopic images were stored. Impression: No contrast extension into the small bowel identified. Three fluoroscopic image was stored. Discussed with Dr. Gil at the completion of the evaluation.
== END 2016-11-15 19:45 | DRG 393 ==
LOC: C.ER 03:00 → C.9E 05:46 → C.9I 12:36 → C.6T 11-09 14:34
PROVIDERS: ADMIT Internal Medicine Nephrology; ATTEND Internal Medicine Nephrology
PROC: 02HV33Z Insertion of Infusion Device into Superior Vena Cava, Percutaneous Approach (ICD-10-PCS; 2016-11-14)
PROC: 3E0436Z Introduction of Nutritional Substance into Central Vein, Percutaneous Approach (ICD-10-PCS; principal; 2016-11-15)
DX: K63.2 Fistula of intestine (principal); K57.31 Diverticulosis of large intestine without perforation or abscess with bleeding; L03.311 Cellulitis of abdominal wall; E11.9 Type 2 diabetes mellitus without complications; I10 Essential (primary) hypertension; E78.00 Pure hypercholesterolemia, unspecified

== ENCOUNTER 2016-12-02 21:10 | Inpatient (IN) | payer MEDICARE ==
[2016-12-02 21:11] VITALS: BMI 29.9
--- NOTE | 2016-12-02 21:20 | C.PDOC ---
History Of Present Illness A 76 y/o male brought in by EMS form senior care for fever that began this evening. Pt notes swelling of the left neck that began yesterday and waking up this morning feeling nauseated. Time Seen by Provider: 12/02/16 21:20 Chief Complaint (Nursing): Fever History Per: Patient History/Exam Limitations: no limitations Onset/Duration Of Symptoms: Hrs Current Symptoms Are (Timing): Still Present Sick Contacts (Context): None Associated Symptoms: Nausea Severity: Mild Recent travel outside of the [place]: No Additional History Per: Patient Past Medical History Reviewed: Historical Data, Nursing Documentation, Vital Signs Vital Signs: Last Vital Signs Temp 97.8 F 12/02/16 21:57 Pulse 102 H 12/02/16 23:35 Resp 15 12/02/16 23:35 BP 119/74 12/02/16 23:35 Pulse Ox 100 12/03/16 00:04 - Medical History PMH: Diverticulitis, Gastritis, HTN, Hypercholesterolemia, Kidney Stones ( required left nephrostomy Dr Beckwith 2013) Denies: Atrial Fibrillation Surgical History: Endoscopy - [facility] Procedures ASSISTANCE WITH RESPIRATORY VENTILATION, 24-96 HRS, CPAP (01/31/16) BYPASS DESCENDING COLON TO CUTANEOUS, OPEN APPROACH (01/31/16) BYPASS JEJUNUM TO CUTANEOUS, OPEN APPROACH (08/17/16) CYSTOSCOPY NEC (09/21/13) DRAINAGE OF ABDOMINAL WALL WITH DRAIN DEV, OPEN APPROACH (08/17/16) DRAINAGE OF ABDOMINAL WALL, OPEN APPROACH (01/31/16) DRAINAGE OF PELVIC CAVITY, PERCUTANEOUS APPROACH (01/31/16) EXCISION OF DESCENDING COLON, OPEN APPROACH (01/31/16) EXCISION OF ESOPHAGOGASTRIC JUNCTION, ENDO, DIAGN (01/31/16) EXCISION OF SIGMOID COLON, ENDO (01/31/16) EXCISION OF SIGMOID COLON, OPEN APPROACH (08/17/16) EXCISION OF STOMACH, ENDO, DIAGN (01/31/16) EXCISION OF TRANSVERSE COLON, ENDO (01/31/16) INSERTION OF INFUSION DEV INTO SUP VENA CAVA, PERC APPROACH (11/06/16) INTRODUCTION OF NUTRITIONAL INTO CENTRAL VEIN, PERC APPROACH (11/06/16) PERCU NEPHROSTM W/O FRAG (11/04/13) PERCU NEPHROSTMY W FRAG (11/06/13) PLAIN RADIOGRAPHY OF SUP MESENT ART USING OTH CONTRAST (01/31/16) RELEASE DESCENDING COLON, OPEN APPROACH (01/31/16) RELEASE PERITONEUM, OPEN APPROACH (08/17/16) REMOV URETERAL DRAIN (11/27/13) REPAIR ABDOMINAL WALL, OPEN APPROACH (01/31/16) REPAIR SIGMOID COLON, OPEN APPROACH (08/17/16) REPAIR SMALL INTESTINE, OPEN APPROACH (08/17/16) RESECTION OF LEFT LARGE INTESTINE, OPEN APPROACH (01/31/16) RESPIRATORY VENTILATION, LESS THAN 24 CONSECUTIVE HOURS (01/31/16) RETROGRADE PYELOGRAM (09/21/13) TRANSFUSE NONAUT RED BLOOD CELLS IN PERIPH VEIN, PERC (01/31/16) URETERAL CATHETERIZATION (11/27/13) Family History: States: Unknown Family Hx - Social History Hx Alcohol Use: No Hx Substance Use: No Review Of Systems Except As Marked, All Systems Reviewed And Found Negative. Constitutional: Positive for: Fever ENT: Negative for: Ear Pain Cardiovascular: Negative for: Chest Pain Respiratory: Negative for: Shortness of Breath Gastrointestinal: Positive for: Nausea, Abdominal Pain. Negative for: Vomiting , Diarrhea Musculoskeletal: Positive for: Neck Pain (Side of the neck) Neurological: Negative for: Weakness, Numbness Physical Exam - Physical Exam Appears: Non-toxic, No Acute Distress Skin: Warm, Dry Head: Atraumatic, Normacephalic Eye(s): bilateral: Normal Inspection, PERRL, EOMI Oral Mucosa: Moist Throat: Normal, No Exudate Neck: Trachea Midline, No Step Off Deformity, Other (Warm tender mass of left side of neck and upper jaw) Chest: Symmetrical Cardiovascular: Rhythm Regular Respiratory: No Accessory Muscle Use, No Rales, No Rhonchi, No Wheezing Gastrointestinal/Abdominal: Soft, Tenderness (diffuse tenderness), No Guarding, No Rebound, Other (Enterocutaneous fistula) Neurological/Psych: Oriented x3, Normal Speech, Other (No focal deficit. Alert and somewhat sleepy) ED Course And Treatment - Laboratory Results Result Diagrams: 12/02/16 21:57 12/02/16 21:57 O2 Sat by Pulse Oximetry: 100 (RA) Pulse Ox Interpretation: Normal Medical Decision Making Medical Decision Makinpm disc w Dr Woods who will admit, req ID consult Dr Meléndez [id number] disc w Dr Meléndez- agrees w vanc/zosyn, rec add flagyl 0004 disc CT results w ophthalmology surgical technician EKG: Sinus tachycardia 115 No acute ischemia CXR No focal opacity Right sided central catheter No significant change form prior EXAM: CT Abdomen and Pelvis With Intravenous Contrast CLINICAL HISTORY: 76 years old, male; Pain; Abdominal pain; Generalized; Prior surgery; Surgery type: Colostomy, nephrostomy; Additional info: Fever and abd pain TECHNIQUE: Axial computed tomography images of the abdomen and pelvis with intravenous contrast. This CT exam was performed using one or more of the following dose reduction techniques : automated exposure control, adjustment of the mA and/or kV according to patient size, and/ or use of iterative reconstruction technique. Coronal and sagittal reformatted images were created and reviewed. CONTRAST: 75 mL of omnipaque 350 administered intravenously. EXAM DATE/TIME: 12/02/2016 10:08 PM COMPARISON: CT - ABD PELVIS PO IV CON 02/09/2016 12:55:51 AM FINDINGS: Lower thorax: Heart size is normal. There are coronary calcifications. There is minimal dependent atelectasis. There is a small hiatal hernia. ABDOMEN:Liver: There is fatty infiltration of the liver. Gallbladder and bile ducts: Gallbladder is distended. There is gallbladder wall enhancement. There is pericholecystic fluid/edema. Common bile duct is unremarkable. Pancreas: Pancreas is atrophic. There is a 2 cm cyst in the head of the pancreas , unchanged. Spleen: unremarkable Adrenals: Right adrenal is unremarkable. There is left adrenal thickening with a nodule. Kidneys and ureters: There is minimal right renal scarring. There are left renal cysts, unchanged. There is a nonobstructing left lower pole renal stone.There is no pelvocaliectasis or ureterectasis. Stomach and bowel: Stomach is almost empty. There is inflammation and edema along the gastric antrum. There is antral and proximal duodenal wall and fold thickening. Rotation is normal. Small bowel is mildly distended with fluid and air. There is no small bowel obstruction. Terminal ileum is unremarkable. Retrocecal appendix is unremarkable. There is extensive colonic diverticulosis. There is been a left colon resection. . There is a low colonic anastomosis in the left lower quadrant. Rectum is distended with fluid and a small amount of air. Appendix: See stomach and bowel PELVIS: Bladder: Bladder is almost empty. Reproductive: The prostate is mildly enlarged. Seminal vesicles are unremarkable. ABDOMEN and PELVIS: Intraperitoneal space: There is no free air. Bones/joints: There are degenerative changes in the osseus structures. Soft tissues: There is inflammation and edema in the left lower abdominal wall. There is edema in the left lower rectus muscle. There is inflammation and edema in the fat of the abdominal wall. There is one or possibly 2 enterocutaneous fistulas. There is a fistula which appears to arise from the colon anastomosis site and tracks through the abdominal wall to the skin. There is a multiloculated air collection in the abdominal wall which tracks to the skin surface. Vasculature: Aorta is mildly tortuous.There are vascular calcifications. Lymph nodes: There is shotty para-aortic adenopathy. IMPRESSION: Distended gallbladder with wall enhancement and pericholecystic inflammation suggest cholecystitis, probable reactive change in the adjacent gastric antrum and duodenum; pancreatic atrophy with pancreatic head cyst, unchanged; left renal stones and cysts, unchanged; Partial left hemicolectomy with low left lower quadrant colon anastomosis and enterocutaneous fistula, air collection in the anterior abdominal wall associated with the fistula; extensive colonic diverticulosis, no CT findings of diverticulitis or appendicitis Findings were discussed with Drew Aviles at 11:57 PM EDT on 12/02/2016. ADDITIONAL HISTORY: Prior left hemicolectomy with colostomy, colostomy takedown with persistent enterocutaneous fistula EXAM: CT Neck With Intravenous Contrast CLINICAL HISTORY: 76 years old, male; Signs and symptoms; Mass, lump, or swelling in neck; Additional info: Swelling left neck TECHNIQUE: Axial computed tomography images of the neck with intravenous contrast. This CT exam was performed using one or more of the following dose reduction techniques: automated exposure control, adjustment of the mA and/or kV according to patient size, and/or use of iterative reconstruction technique. Coronal and sagittal reformatted images were created and reviewed. CONTRAST: 25 mL of omnipaque 350 administered intravenously. EXAM DATE/TIME: 12/02/2016 9:24 PM COMPARISON: There are no prior studies for comparison. FINDINGS: Brain: No focal abnormalities are seen in visualized portion of the brain. Tonsils and adenoids: Adenoids and right tonsils are unremarkable. There is enlargement of left tonsils with mild mass effect on the adjacent airway. No tonsillar abscess is identified. There is mild edema in the left parapharyngeal space. Airway: There is no airway obstruction. Prominent left tonsils encroach on the oropharyngeal airway. Epiglottis and aryepiglottic folds are unremarkable. Subglottic trachea is unremarkable. Retropharyngeal space: Retropharyngeal soft tissues are unremarkable. Submandibular/parotid glands: Right parotid and submandibular glands are unremarkable. There is diffuse enlargement and enhancement of the left parotid gland. No stones are identified. Thyroid: The thyroid gland is enlarged. There are multiple nodules. Bones/joints: There degenerative changes in the spine. There are large bulky bridging osteophytes. Soft tissues: See above. Vasculature: There are vascular calcifications. Vascular structures are unremarkable. Lymph nodes: There are mildly enlarged left cervical nodes. Sinuses: There is no acute sinusitis. Mastoid air cells: Visualized portions of the middle ears and mastoids are unremarkable. Orbits: Orbits are incompletely imaged. Dental: Streak artifact from dental fillings degrades image quality. Streak artifact from dental fillings degrades image quality. Lung apices: Lung apices are clear IMPRESSION: Left parotid sialadenitis; prominent left tonsils and left cervical nodes most likely reactive Additional findings as described above. Disposition - Disposition Disposition: HOSPITALIZED Disposition Time: 22:35 Condition: GUARDED - Clinical Impression Clinical Impression: Sepsis - Scribe Statement The provider has reviewed the documentation as recorded by the Scribe Jakub ocampo All medical record entries made by the Scribe were at my direction and personally dictated by me. I have reviewed the chart and agree that the record accurately reflects my personal performance of the history, physical exam, medical decision making, and the department course for this patient. I have also personally directed, reviewed, and agree with the discharge instructions and disposition.
[2016-12-02] MEDS ORDERED: Vancomycin 1 gm/NS 200 ml 1 GM/200 ML BAG IVPB STA (21:23)
[2016-12-02] MEDS ORDERED: Piperacill/Tazo 3.375gm in Dex 3.375 GM/50 ML BAG IVPB STA (21:23)
[2016-12-02] MEDS ORDERED: Sodium Chloride 0.9% 2,000 ML ONE (21:39)
[2016-12-02 22:02] LABS: BASO # 0.1 K/uL (0.0-0.2); BASO % 0.4 % (0.0-2.0); EOS % 0.2 % (0.0-4.0); HEMATOCRIT 39.7 % (35.0-51.0); LYMPH # 1.5 K/uL (1.0-4.3); LYMPH % 6.7 % (20.0-40.0); MEAN CELL VOLUME 95.4 fL (80.0-94.0); MEAN CORPUSCULAR HEMOGLOBIN 31.7 pg (27.0-31.0); MEAN CORPUSCULAR HGB CONC 33.3 g/dL (33.0-37.0); MEAN PLATELET VOLUME 8.1 fL (7.2-11.7); MONO # 1.3 K/uL (0.0-0.8); MONO % 5.9 % (0.0-10.0); PLATELET COUNT 388 K/uL (130-400); RED CELL DISTRIBUTION WIDTH 14.4 % (11.5-14.5); WHITE BLOOD COUNT 21.7 K/uL (4.8-10.8)
[2016-12-02 22:03] LABS: VENOUS BLOOD GAS BASE EXCESS 5.2 mmol/L (0.0-2.0); VENOUS BLOOD GAS PCO2 52 mmHg (40-60); VENOUS BLOOD PH 7.39 (7.32-7.43)
[2016-12-02 22:08] LABS: RBC URINE < 1 /hpf (0-3); URINE BACTERIA MANY (<OCC); URINE BILIRUBIN NEGATIVE (NEGATIVE); URINE BLOOD NEGATIVE (NEGATIVE); URINE COLOR Yellow (YELLOW); URINE GLUCOSE (UA) 3+ mg/dL (Normal); URINE KETONE NEGATIVE (NEGATIVE); URINE LEUKOCYTE ESTERASE NEG Leu/uL (Negative); URINE PROTEIN 1+ mg/dL (NEGATIVE); URINE UROBILINOGEN NORMAL mg/dL (0.2-1.0); WBC URINE 54 /hpf (0-5)
[2016-12-02 22:09] LABS: CHLORIDE 94 mmol/L (98-107)
[2016-12-02 22:10] LABS: POTASSIUM 4.1 mmol/L (3.6-5.2); SODIUM 138 mmol/L (132-148)
[2016-12-02 22:12] LABS: GFR AFRICAN-AMERICAN > 60
[2016-12-02 22:13] LABS: ALB/GLOB RATIO 0.9 (1.0-2.1); ALKALINE PHOSPHATASE 182 U/L (38-126); ALT/SGPT 31 U/L (21-72); AST/SGOT 27 U/L (17-59); BLOOD UREA NITROGEN 69 mg/dL (9-20); CALCIUM 9.3 mg/dl (8.6-10.4); CARBON DIOXIDE 29 mmol/L (22-30); GLUCOSE,RANDOM 241 mg/dL (75-110); MAGNESIUM 2.6 mg/dL (1.6-2.3); PHOSPHOROUS 4.8 mg/dL (2.5-4.5); TOTAL PROTEIN 8.5 g/dL (6.3-8.3)
[2016-12-02 22:18] LABS: NEUTROPHIL 79 % (50-75); TOTAL CELLS COUNTED 100
[2016-12-02] MEDS ORDERED: Sodium Chloride 0.9% 1,000 ML ONE (22:31)
[2016-12-02] MEDS ORDERED: Iohexol 350mg/ml 100 ML ONE (22:33)
--- NOTE | 2016-12-03 00:05 | CT ---
EXAM: CT Abdomen and Pelvis With Intravenous Contrast CLINICAL HISTORY: 76 years old, male; Pain; Abdominal pain; Generalized; Prior surgery; Surgery type: Colostomy, nephrostomy; Additional info: Fever and abd pain TECHNIQUE: Axial computed tomography images of the abdomen and pelvis with intravenous contrast. This CT exam was performed using one or more of the following dose reduction techniques: automated exposure control, adjustment of the mA and/or kV according to patient size, and/or use of iterative reconstruction technique. Coronal and sagittal reformatted images were created and reviewed. CONTRAST: 75 mL of omnipaque 350 administered intravenously. EXAM DATE/TIME: 12/02/2016 10:08 PM COMPARISON: CT - ABD PELVIS PO IV CON 02/09/2016 12:55:51 AM FINDINGS: Lower thorax: Heart size is normal. There are coronary calcifications. There is minimal dependent atelectasis. There is a small hiatal hernia. ABDOMEN: Liver: There is fatty infiltration of the liver. Gallbladder and bile ducts: Gallbladder is distended. There is gallbladder wall enhancement. There is pericholecystic fluid/edema. Common bile duct is unremarkable. Pancreas: Pancreas is atrophic. There is a 2 cm cyst in the head of the pancreas, unchanged. Spleen: unremarkable Adrenals: Right adrenal is unremarkable. There is left adrenal thickening with a nodule. Kidneys and ureters: There is minimal right renal scarring. There are left renal cysts, unchanged. There is a nonobstructing left lower pole renal stone.There is no pelvocaliectasis or ureterectasis. Stomach and bowel: Stomach is almost empty. There is inflammation and edema along the gastric antrum. There is antral and proximal duodenal wall and fold thickening. Rotation is normal. Small bowel is mildly distended with fluid and air. There is no small bowel obstruction. Terminal ileum is unremarkable. Retrocecal appendix is unremarkable. There is extensive colonic diverticulosis. There is been a left colon resection. . There is a low colonic anastomosis in the left lower quadrant. Rectum is distended with fluid and a small amount of air. Appendix: See stomach and bowel PELVIS: Bladder: Bladder is almost empty. Reproductive: The prostate is mildly enlarged. Seminal vesicles are unremarkable. ABDOMEN and PELVIS: Intraperitoneal space: There is no free air. Bones/joints: There are degenerative changes in the osseus structures. Soft tissues: There is inflammation and edema in the left lower abdominal wall. There is edema in the left lower rectus muscle. There is inflammation and edema in the fat of the abdominal wall. There is one or possibly 2 enterocutaneous fistulas. There is a fistula which appears to arise from the colon anastomosis site and tracks through the abdominal wall to the skin. There is a multiloculated air collection in the abdominal wall which tracks to the skin surface. Vasculature: Aorta is mildly tortuous.There are vascular calcifications. Lymph nodes: There is shotty para-aortic adenopathy. IMPRESSION: Distended gallbladder with wall enhancement and pericholecystic inflammation suggest cholecystitis, probable reactive change in the adjacent gastric antrum and duodenum; pancreatic atrophy with pancreatic head cyst, unchanged; left renal stones and cysts, unchanged; Partial left hemicolectomy with low left lower quadrant colon anastomosis and enterocutaneous fistula, air collection in the anterior abdominal wall associated with the fistula; extensive colonic diverticulosis, no CT findings of diverticulitis or appendicitis Findings were discussed with Drew Aviles at 11:57 PM EDT on 12/02/2016. ADDITIONAL HISTORY: Prior left hemicolectomy with colostomy, colostomy takedown with persistent enterocutaneous fistula
--- NOTE | 2016-12-03 00:08 | CT ---
EXAM: CT Neck With Intravenous Contrast CLINICAL HISTORY: 76 years old, male; Signs and symptoms; Mass, lump, or swelling in neck; Additional info: Swelling left neck TECHNIQUE: Axial computed tomography images of the neck with intravenous contrast. This CT exam was performed using one or more of the following dose reduction techniques: automated exposure control, adjustment of the mA and/or kV according to patient size, and/or use of iterative reconstruction technique. Coronal and sagittal reformatted images were created and reviewed. CONTRAST: 25 mL of omnipaque 350 administered intravenously. EXAM DATE/TIME: 12/02/2016 9:24 PM COMPARISON: There are no prior studies for comparison. FINDINGS: Brain: No focal abnormalities are seen in visualized portion of the brain. Tonsils and adenoids: Adenoids and right tonsils are unremarkable. There is enlargement of left tonsils with mild mass effect on the adjacent airway. No tonsillar abscess is identified. There is mild edema in the left parapharyngeal space. Airway: There is no airway obstruction. Prominent left tonsils encroach on the oropharyngeal airway. Epiglottis and aryepiglottic folds are unremarkable. Subglottic trachea is unremarkable. Retropharyngeal space: Retropharyngeal soft tissues are unremarkable. Submandibular/parotid glands: Right parotid and submandibular glands are unremarkable. There is diffuse enlargement and enhancement of the left parotid gland. No stones are identified. Thyroid: The thyroid gland is enlarged. There are multiple nodules. Bones/joints: There degenerative changes in the spine. There are large bulky bridging osteophytes. Soft tissues: See above. Vasculature: There are vascular calcifications. Vascular structures are unremarkable. Lymph nodes: There are mildly enlarged left cervical nodes. Sinuses: There is no acute sinusitis. Mastoid air cells: Visualized portions of the middle ears and mastoids are unremarkable. Orbits: Orbits are incompletely imaged. Dental: Streak artifact from dental fillings degrades image quality. Streak artifact from dental fillings degrades image quality. Lung apices: Lung apices are clear IMPRESSION: Left parotid sialadenitis; prominent left tonsils and left cervical nodes most likely reactive Additional findings as described above.
[2016-12-03] MEDS ORDERED: metroNIDAZOLE IV 500 mg/100 ml 500 MG/100 ML BAG ONE (00:49)
[2016-12-03 00:54] LABS: VENOUS BLOOD GAS PCO2 57 mmHg (40-60); VENOUS BLOOD PH 7.32 (7.32-7.43)
[2016-12-03] MEDS: metroNIDAZOLE IV 500 mg/100 ml 500 MG/100 ML BAG IVPB SCH ×2 (00:55→06:00)
[2016-12-03] MEDS ORDERED: Sodium Chloride 0.9% 1,000 ML IV SCH (02:15)
[2016-12-03] MEDS ORDERED: Dextrose 5%/0.9% NS 1,000 ML IV ONE (05:25)
[2016-12-03] MEDS: Dextrose 5%/0.9% NS 1,000 ML IV SCH ×2 (05:28→18:12)
[2016-12-03] MEDS ORDERED: DEXTROSE IV SCH ×2 (06:00→14:00)
[2016-12-03] MEDS ORDERED: AMINO ACIDS IV SCH ×2 (06:00→14:00)
[2016-12-03] MEDS ORDERED: Piperacillin/Tazobact 3.375 GM in Sodium Chloride 100 ML IVPB SCH (06:00)
--- NOTE | 2016-12-03 06:48 | CP.PCM.CON ---
<Liat Hernandez - Last Filed: 12/03/16 06:34> History of Present Illness - History of Present Illness History of Present Illness: Surgery Consult: Dr. Hodges (covering for Dr. Gil) This 76M, Dr. Gil's pt, is well known to our service from previous admissions who [facility] from [facility] for [facility]. Pt has had a complicated course of recovery from a colostomy reversal back in August of this year. Postoperatively, pt had an anastomotic leak and developed an enterocutaneous fistula that still has not closed. On this admission, pt was brought in for elevated fevers. A CT abdomen pelvis was obtained and shows distended GB with wall thickening and pericholecystic fluid. Surgery consulted to r/o cholecystitis. Currently, pt is resting comfortably in bed. States he doesn't have any abdominal pain and denies any N/ V. He admits to tolerating a diet at the [facility]. Denies diarrhea, chest pain or SOB. PMHx: HTN, HLD, diverticulosis/diverticulitis, enterocutaneous fistula PSHx: colostomy reversal with re-op x 2 SocialHx: lives at [facility] Review of Systems - Review of Systems All systems: reviewed and no additional remarkable complaints except (as per HPI ) Past Patient History - Infectious Disease Hx of Infectious Diseases: None - Tetanus Immunizations Tetanus Immunization: Unknown - Past Medical History & Family History Past Medical History?: Yes - Past Social History Smoking Status: Never Smoked - CARDIAC Hx Atrial Fibrillation: No Hx Hypercholesterolemia: Yes Hx Hypertension: Yes - PULMONARY Hx Respiratory Disorders: No - NEUROLOGICAL Hx Neurological Disorder: No - HEENT Hx HEENT Problems: Yes Hx Cataracts: Yes - RENAL Hx Kidney Stones: Yes (required left nephrostomy Dr Beckwith 2013) - ENDOCRINE/METABOLIC Hx Diabetes Mellitus Type 2: Yes - INTEGUMENTARY Hx Dermatological Problems: Yes (dry skin) - GASTROINTESTINAL Hx Diverticulitis: Yes - GENITOURINARY/GYNECOLOGICAL Hx Genitourinary Disorders: No - PSYCHIATRIC Hx Substance Use: No - SURGICAL HISTORY Hx Surgeries: Yes - ANESTHESIA Hx Anesthesia: Yes Hx Anesthesia Reactions: No Hx Malignant Hyperthermia: No Meds Allergies/Adverse Reactions: Allergies Allergy/AdvReac Type Severity Reaction Status Date / Time No Known Allergies Allergy Verified 12/02/16 21:23 - Medications Medications: Current Medications Acetaminophen (Tylenol 650 Mg Supp) 650 mg RC Q4 PRN PRN Reason: Fever >101. F Home Med (Fentanyl [Fentanyl]) 1 each TD Q72 [facility] Home Med (Amino/Dext 5/25 [Clinimix 5%-25%]) 1,500 ml IV QSHIFT [facility] Last Admin: 12/03/16 05:16 Dose: Not Given Metronidazole (Flagyl) 500 mg in 100 mls @ 100 mls/hr IVPB Q8 [facility] Last Admin: 12/03/16 00:55 Dose: 100 mls/hr Dextrose/Sodium Chloride (Dextrose 5%/0.9% Ns 1000 Ml) 1,000 mls @ 80 mls/hr IV .[id number] [facility] Last Admin: 12/03/16 05:28 Dose: 80 mls/hr Piperacillin Sod/Tazobactam Sod (Zosyn 3.375 Gm Iv Premix) 3.375 gm in 50 mls @ 100 mls/hr IVPB Q6H [facility] Insulin Aspart (Novolog) 0 unit SC ACHS [facility] PRN Reason: Protocol Physical Exam - Constitutional Appears: Well, No Acute Distress, Chronically Ill - Head Exam Head Exam: ATRAUMATIC, NORMOCEPHALIC - Eye Exam Eye Exam: Normal appearance - ENT Exam Additional comments: Left sided facial swelling below the ear, no drainage or erythema noted - Respiratory Exam Respiratory Exam: NORMAL BREATHING PATTERN - Cardiovascular Exam Cardiovascular Exam: Tachycardia - GI/Abdominal Exam GI & Abdominal Exam: Soft. absent: Distended, Guarding, Tenderness Additional comments: Enterocutaneous fistula noted in the suprapubic region with colostomy bag in place, bag with brown liquid stool - Rectal Exam Rectal Exam: Deferred - Extremities Exam Extremities exam: Negative for: tenderness - Neurological Exam Neurological exam: Alert, Oriented x3 - Skin Skin Exam: Dry, Warm Results - Vital Signs Recent Vital Signs: Last Vital Signs Temp 97.8 F 12/02/16 21:57 Pulse 110 H 12/03/16 05:04 Resp 12 12/03/16 05:04 BP 110/81 12/03/16 05:04 Pulse Ox 98 12/03/16 05:04 - Labs Result Diagrams: 12/02/16 21:57 12/02/16 21:57 Labs: Laboratory Results - last 24 hr 12/03/16 00:50 pO2 28 L VBG pH 7.32 VBG pCO2 57 VBG HCO3 25.1 VBG Total CO2 31.1 H VBG O2 Sat (Calc) 63.7 VBG Base Excess 2.0 VBG Potassium 4.3 Sodium 143.0 Chloride 112.0 H Glucose 131 H Lactate 1.8 Venous Blood Potassium 4.3 - Imaging and Cardiology CT scan - abdomen Status: Image reviewed by me, Report reviewed by me Assessment & Plan - Assessment and Plan (Free Text) Assessment: 76M with SIRS; r/o cholecystitis Plan: - will order HIDA - pt is a poor surgical candidate due to his multiple abdominal surgeries; if HIDA is positive recommend IR for cholecystostomy tube drainage - CT neck shows parotid sialadenitis which if infected may also be the source of his SIRS. Rec warm compresses & antiseptic mouth rinses TID for better oral hygiene - d/w Dr. Tracie Hernandez, PGY-2 Surgery <Clarence Hodges Jr. - Last Filed: 12/03/16 13:26> Meds - Medications Medications: Current Medications Acetaminophen (Tylenol 650 Mg Supp) 650 mg RC Q4 PRN PRN Reason: Fever >101. F Metronidazole (Flagyl) 500 mg in 100 mls @ 100 mls/hr IVPB Q8 [facility] Last Admin: 12/03/16 06:00 Dose: Not Given Dextrose/Sodium Chloride (Dextrose 5%/0.9% Ns 1000 Ml) 1,000 mls @ 80 mls/hr IV .[id number] [facility] Last Admin: 12/03/16 05:28 Dose: 80 mls/hr Piperacillin Sod/Tazobactam Sod (Zosyn 3.375 Gm Iv Premix) 3.375 gm in 50 mls @ 100 mls/hr IVPB Q6H [facility] Last Admin: 12/03/16 13:00 Dose: 100 mls/hr Multivitamins/Vitamin C 10 ml/ (Amino Acids) 1,010 mls @ 63 mls/hr IV .Q16H2M ONE Stop: 12/04/16 10:01 Amino Acids (Clinimix 4.25/5 % (1000 Ml)) 1,000 mls @ 63 mls/hr IV .[id number] [facility] Stop: 12/04/16 17:59 Insulin Aspart (Novolog) 0 unit SC ACHS [facility] PRN Reason: Protocol Last Admin: 12/03/16 12:30 Dose: 2 unit Results - Vital Signs Recent Vital Signs: Last Vital Signs Temp 97.5 F L 12/03/16 12:42 Pulse 99 H 12/03/16 12:42 Resp 20 12/03/16 12:42 BP 101/64 12/03/16 12:42 Pulse Ox 98 12/03/16 12:42 - Labs Result Diagrams: 12/02/16 21:57 12/02/16 21:57 Labs: Laboratory Results - last 24 hr 12/03/16 12/03/16 12/03/16 00:50 07:35 12:53 pO2 28 L VBG pH 7.32 VBG pCO2 57 VBG HCO3 25.1 VBG Total CO2 31.1 H VBG O2 Sat (Calc) 63.7 VBG Base Excess 2.0 VBG Potassium 4.3 Sodium 143.0 Chloride 112.0 H Glucose 131 H Lactate 1.8 POC Glucose (mg/dL) 152 H 159 H Venous Blood Potassium 4.3
[2016-12-03] MEDS: Piperacill/Tazo 3.375gm in Dex 3.375 GM/50 ML BAG IVPB SCH ×3 (06:50→18:48)
[2016-12-03] MEDS: (Novolog) Insulin Aspart, Recombinant 100 u/ml 10 ml vial SC SCH ×4 (07:37→22:44)
[2016-12-03] MEDS ORDERED: Home Med 1 UNIT (Fentanyl [Fentanyl] 1 EACH) TD SCH ×2 (08:00)
--- NOTE | 2016-12-03 08:59 | RAD ---
HISTORY: Sepsis Patient COMPARISON: 11/13/2016 FINDINGS: LUNGS: Lines and tubes in stable position. Biapical pleural thickening ; right greater than left with upper lobe granulomatous changes. No gross focal infiltrate or effusion. PLEURA: No significant pleural effusion identified, no pneumothorax apparent. CARDIOVASCULAR: Normal. OSSEOUS STRUCTURES: No significant abnormalities. VISUALIZED UPPER ABDOMEN: Normal. OTHER FINDINGS: None. IMPRESSION: Lines and tubes in stable position. Biapical pleural thickening ; right greater than left with upper lobe granulomatous changes. No gross focal infiltrate or effusion.
--- NOTE | 2016-12-03 10:17 | US ---
HISTORY: cholesytitis on CT COMPARISON: None. TECHNIQUE: Sonographic evaluation of the right upper quadrant of the abdomen. FINDINGS: LIVER: Measures 14.0 cm in length. Normal echogenicity of the liver parenchyma. No mass. No intrahepatic bile duct dilatation. Hepatopetal portal venous flow is demonstrated. GALLBLADDER: Borderline mural thickening, 3 mm. Trace pericholecystic fluid. Negative sonographic Quesada's sign. No evidence of cholelithiasis. Findings are nonspecific. COMMON BILE DUCT: Measures 5 mm. No stones. No dilatation. PANCREAS: Normal size. There is a simple cyst in or adjacent to the pancreatic head measuring 1.7 x 1.8 x 1.9 cm corresponding to a cyst/cystic pancreatic mass identified on CT examination of 12/02/2016 measuring 2 cm. RIGHT KIDNEY: Measures 10.7 cm in length. Normal echogenicity. No calculus, mass, or hydronephrosis. AORTA: No aneurysmal dilatation. IVC: Unremarkable. OTHER FINDINGS: None . IMPRESSION: Borderline gallbladder wall thickening with trace pericholecystic fluid. No cholelithiasis. Negative sonographic Quesada sign. Findings are equivocal for cholecystitis. 1.9 cm cyst in or adjacent to pancreatic head. This corresponds to a 2 cm cyst of the pancreatic head identified on CT examination of the prior date.
--- NOTE | 2016-12-03 10:26 | CP.PCM.HP ---
History of Present Illness - History of Present Illness History of Present Illness: aDMITTED THIS76 YEARS OLD MALE FROM THE er [facility] TO EAT. 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 On TPN and iv antoibiotics. Present on Admission - Present on Admission Any Indicators Present on Admission: No Review of Systems - Constitutional Constitutional: Fever, Weight Loss, Weakness - EENT Nose/Mouth/Throat: Dysphagia, Sore Throat, Neck Pain, Neck Mass - Gastrointestinal Gastrointestinal: Abdominal Pain, Dysphagia Past Patient History - Infectious Disease Hx of Infectious Diseases: None - Tetanus Immunizations Tetanus Immunization: Unknown - Past Medical History & Family History Past Medical History?: Yes - Past Social History Smoking Status: Never Smoked Chewing Tobacco Use: No Cigar Use: No Alcohol: None Drugs: Denies Home Situation {Lives}: With Family - CARDIAC Hx Atrial Fibrillation: No Hx Hypercholesterolemia: Yes Hx Hypertension: Yes - PULMONARY Hx Respiratory Disorders: No - NEUROLOGICAL Hx Neurological Disorder: No - HEENT Hx HEENT Problems: Yes Hx Cataracts: Yes - RENAL Hx Kidney Stones: Yes (required left nephrostomy Dr Beckwith 2013) - ENDOCRINE/METABOLIC Hx Diabetes Mellitus Type 2: Yes - HEMATOLOGICAL/ONCOLOGICAL Hx Blood Disorders: No - INTEGUMENTARY Hx Dermatological Problems: No (dry skin) - MUSCULOSKELETAL/RHEUMATOLOGICAL Hx Falls: Yes - GASTROINTESTINAL Hx Gastrointestinal Disorders: Yes Hx Bowel Surgery: Yes Hx Diverticulitis: Yes Other/Comment: persistent enterocutaneous fistula. - GENITOURINARY/GYNECOLOGICAL Hx Genitourinary Disorders: Yes Other/Comment: left ureteral stone. - PSYCHIATRIC Hx Psychophysiologic Disorder: No Hx Substance Use: No - SURGICAL HISTORY Hx Surgeries: Yes Other/Comment: Partial left hemicolectomy. - ANESTHESIA Hx Anesthesia: Yes Hx Anesthesia Reactions: No Hx Malignant Hyperthermia: No Meds Allergies/Adverse Reactions: Allergies Allergy/AdvReac Type Severity Reaction Status Date / Time No Known Allergies Allergy Verified 12/02/16 21:23 Physical Exam - Constitutional Appears: Toxic, Chronically Ill - Head Exam Head Exam: ATRAUMATIC, NORMAL INSPECTION - Eye Exam Eye Exam: Normal appearance Pupil Exam: NORMAL ACCOMODATION, PERRL - ENT Exam ENT Exam: Mucous Membranes Moist, Normal External Ear Exam - Neck Exam Neck exam: Positive for: Tenderness Additional comments: tender at left side of the neck with swelling . - Respiratory Exam Respiratory Exam: Clear to Auscultation Bilateral, NORMAL BREATHING PATTERN - Cardiovascular Exam Cardiovascular Exam: REGULAR RHYTHM, +S1, +S2 - GI/Abdominal Exam GI & Abdominal Exam: Guarding, Tenderness Additional comments: Pain et all over the abdomen but mostly at the RUQ. - Rectal Exam Rectal Exam: Deferred - Extremities Exam Extremities exam: Positive for: normal inspection - Back Exam Back exam: CVA tenderness (L), FULL ROM, NORMAL INSPECTION - Neurological Exam Neurological exam: Alert, Oriented x3, Reflexes Normal - Psychiatric Exam Psychiatric exam: Normal Affect, Normal Mood - Skin Skin Exam: Dry, Intact, Normal Color Results - Vital Signs Recent Vital Signs: Last Vital Signs Temp 97.8 F 12/02/16 21:57 Pulse 114 H 12/03/16 07:03 Resp 10 L 12/03/16 07:03 BP 102/64 12/03/16 07:03 Pulse Ox 99 12/03/16 07:03 - Labs Result Diagrams: 12/02/16 21:57 12/02/16 21:57 Labs: Laboratory Results - last 24 hr 12/03/16 00:50 pO2 28 L VBG pH 7.32 VBG pCO2 57 VBG HCO3 25.1 VBG Total CO2 31.1 H VBG O2 Sat (Calc) 63.7 VBG Base Excess 2.0 VBG Potassium 4.3 Sodium 143.0 Chloride 112.0 H Glucose 131 H Lactate 1.8 Venous Blood Potassium 4.3 Assessment & Plan (1) Sepsis Status: Acute (2) Diverticulosis of colon Status: Chronic (3) Cholecystitis with cholelithiasis Status: Acute Priority: High - Assessment and Plan (Free Text) Assessment: Assessment: Sepsis. Acute cholecystitis. Acute sialitis of the left parotid and the lymph glands. Persistent enterocutaneous fistula. left lwer quadrant. NIDDM Plan: Plan: Surgical consult with Dr. Hodges and DR. iRka Sargent and vancomycin. TPN
--- NOTE | 2016-12-03 11:06 | NM ---
PROCEDURE: Nuclear Medicine Hepatobiliary Scan HISTORY: r/o for cholecystitis COMPARISON: December 02, 2016. CT abdomen and pelvis TECHNIQUE: 5.3 mCi of technetium 99m Mebrofenin was administered intravenously. Planar images of the abdomen were obtained at 5 min intervals to 60 mins. Delayed images were also obtained. FINDINGS: LIVER: Timely and homogenous uptake. COMMON BILE DUCT: identified at 20 mins. GALLBLADDER: identified at 20 mins. SMALL BOWEL: Identified at 15 mins. IMPRESSION: Normal Hepatobiliary Scan. The cystic duct is patent.
--- NOTE | 2016-12-03 12:50 | CP.PCM.CON ---
History of Present Illness - History of Present Illness History of Present Illness: INFECTIOUS DISEASE CONSULT; HPI; 76-year-old male with multiple medical problems including hypertension, hyperlipidemia diverticulosis/diverticulitis and her complicated course of recovery from a colostomy reversed back in August 2016. Patient had an anastomotic leak and developed an enterocutaneous fistula that still has not closed. Patient was brought in by EMS on 09/04/16 because of fever that began that evening and also patient noticed the swelling on the left side of the neck that began 1 day before coming which patient noticed. CT abdomen and pelvis was obtained that showed distended gallbladder with wall thickening and pericholecystic fluid. ?acute cholycystitis CT of the neck was reported as left parotid gland swelling with SIALADENITIS. ( SEE FULL REPORT ) and reactive cervical nodes. Infectious disease consultation requested by PMD for sepsis as patient's WBC was also found to be 21.7. patient denies any abdominal pain but did complain of nausea.Patient denies any diarrhea or obstipation. Denies cough or shortness of breath. PMHx: HTN, HLD, diverticulosis/diverticulitis, enterocutaneous fistula PSHx: colostomy reversal with re-op x 2 SocialHx: [place] ALLERGIES : NKDA MEDS ; SEE MARS. VANCOMYCIN 1000MG X1 GIVEN IN ER. ZOSYN 3.375 MG X1 DOSE GIVEN IN ER Review of Systems - Constitutional Constitutional: Chills, Fever - EENT Nose/Mouth/Throat: Neck Mass. absent: Dental Pain, Dysphagia, Mouth Lesions Additional comments: Left sided facial swelling below the ear, no drainage or erythema noted - Cardiovascular Cardiovascular: absent: Chest Pain - Respiratory Respiratory: absent: Cough, Dyspnea - Gastrointestinal Gastrointestinal: Nausea. absent: Abdominal Pain, Constipation, Diarrhea - Genitourinary Genitourinary: Pyuria. absent: Dysuria, Hematuria - Musculoskeletal Musculoskeletal: absent: Neck Pain - Neurological Neurological: absent: Headaches - Hematologic/Lymphatic Hematologic: As Per HPI. absent: Easy Bruising, Lymphadenopathy Past Patient History - Infectious Disease Hx of Infectious Diseases: None - Tetanus Immunizations Tetanus Immunization: Unknown - Past Medical History & Family History Past Medical History?: Yes - Past Social History Smoking Status: Never Smoked Chewing Tobacco Use: No Cigar Use: No Alcohol: None Drugs: Denies Home Situation {Lives}: With Family - CARDIAC Hx Atrial Fibrillation: No Hx Hypercholesterolemia: Yes Hx Hypertension: Yes - PULMONARY Hx Respiratory Disorders: No - NEUROLOGICAL Hx Neurological Disorder: No - HEENT Hx HEENT Problems: Yes Hx Cataracts: Yes - RENAL Hx Kidney Stones: Yes (required left nephrostomy Dr Beckwith 2013) - ENDOCRINE/METABOLIC Hx Diabetes Mellitus Type 2: Yes - HEMATOLOGICAL/ONCOLOGICAL Hx Blood Disorders: No - INTEGUMENTARY Hx Dermatological Problems: No (dry skin) - MUSCULOSKELETAL/RHEUMATOLOGICAL Hx Falls: Yes - GASTROINTESTINAL Hx Gastrointestinal Disorders: Yes Hx Bowel Surgery: Yes Hx Diverticulitis: Yes Other/Comment: persistent enterocutaneous fistula. - GENITOURINARY/GYNECOLOGICAL Hx Genitourinary Disorders: Yes Other/Comment: left ureteral stone. - PSYCHIATRIC Hx Psychophysiologic Disorder: No Hx Substance Use: No - SURGICAL HISTORY Hx Surgeries: Yes Other/Comment: Partial left hemicolectomy. - ANESTHESIA Hx Anesthesia: Yes Hx Anesthesia Reactions: No Hx Malignant Hyperthermia: No Meds Allergies/Adverse Reactions: Allergies Allergy/AdvReac Type Severity Reaction Status Date / Time No Known Allergies Allergy Verified 12/02/16 21:23 - Medications Medications: Current Medications Acetaminophen (Tylenol 650 Mg Supp) 650 mg RC Q4 PRN PRN Reason: Fever >101. F Metronidazole (Flagyl) 500 mg in 100 mls @ 100 mls/hr IVPB Q8 [facility] Last Admin: 12/03/16 06:00 Dose: Not Given Dextrose/Sodium Chloride (Dextrose 5%/0.9% Ns 1000 Ml) 1,000 mls @ 80 mls/hr IV .[id number] [facility] Last Admin: 12/03/16 05:28 Dose: 80 mls/hr Piperacillin Sod/Tazobactam Sod (Zosyn 3.375 Gm Iv Premix) 3.375 gm in 50 mls @ 100 mls/hr IVPB Q6H [facility] Last Admin: 12/03/16 06:50 Dose: 100 mls/hr Multivitamins/Vitamin C 10 ml/ (Amino Acids) 1,010 mls @ 63 mls/hr IV .Q16H2M ONE Stop: 12/04/16 10:01 Amino Acids (Clinimix 4.25/5 % (1000 Ml)) 1,000 mls @ 63 mls/hr IV .[id number] [facility] Stop: 12/04/16 17:59 Insulin Aspart (Novolog) 0 unit SC ACHS [facility] PRN Reason: Protocol Last Admin: 12/03/16 07:37 Dose: 2 unit Physical Exam - Constitutional Appears: No Acute Distress - Head Exam Head Exam: NORMAL INSPECTION - Eye Exam Eye Exam: EOMI, PERRL - ENT Exam ENT Exam: Normal Oropharynx Additional comments: Left sided facial swelling below the ear, no drainage or erythema noted - small cervical lymph nodes palpable probably reactive - Neck Exam Neck exam: Positive for: Lymphadenopathy. Negative for: Thyromegaly Additional comments: cervical small lymphadenopathy left side. - Respiratory Exam Respiratory Exam: Clear to Auscultation Bilateral, NORMAL BREATHING PATTERN - Cardiovascular Exam Cardiovascular Exam: REGULAR RHYTHM, +S1, +S2 - GI/Abdominal Exam GI & Abdominal Exam: Diminished Bowel Sounds, Soft. absent: Guarding, Tenderness Additional comments: Enterocutaneous fistula noted in the suprapubic region with colostomy bag in place, bag with brown liquid stool - Extremities Exam Extremities exam: Positive for: pedal pulses present. Negative for: calf tenderness, pedal edema - Neurological Exam Neurological exam: Alert, CN II-XII Intact, Reflexes Normal - Psychiatric Exam Psychiatric exam: Normal Mood - Skin Skin Exam: Normal Color, Warm Results - Vital Signs Recent Vital Signs: Last Vital Signs Temp 97.5 F L 12/03/16 12:42 Pulse 99 H 12/03/16 12:42 Resp 20 12/03/16 12:42 BP 101/64 12/03/16 12:42 Pulse Ox 98 12/03/16 12:42 - Labs Result Diagrams: 12/02/16 21:57 12/02/16 21:57 Labs: Laboratory Results - last 24 hr 12/03/16 12/03/16 00:50 07:35 pO2 28 L VBG pH 7.32 VBG pCO2 57 VBG HCO3 25.1 VBG Total CO2 31.1 H VBG O2 Sat (Calc) 63.7 VBG Base Excess 2.0 VBG Potassium 4.3 Sodium 143.0 Chloride 112.0 H Glucose 131 H Lactate 1.8 POC Glucose (mg/dL) 152 H Venous Blood Potassium 4.3 - Imaging and Cardiology CT scan - abdomen Status: Report reviewed by me (see report.) Assessment & Plan (1) Sepsis Status: Acute (2) Cholecystitis without cholelithiasis Status: Acute (3) Sialadenitis Status: Acute (4) Enterocutaneous fistula Assessment and Plan: CHRONIC SINCE AFTER REVERSAL OF COLOSTOMY. Status: Acute (5) Anastomotic leak of intestine Status: Acute - Assessment and Plan (Free Text) Plan: PLAN; PANCULTURES ESR,CRP. PATIENT GOT ONE DOSE OF VANCOMYCIN 1 G IN ER ON 09/04/16 CONTINUE iv zOSYN 3.375 EVERY 8 HOURLY FOR BROAD-[employer] C[employer] DISCUSSED WITH THE ER PHYSICIAN. ADD IV fLAGYL 500 MG EVERY 8 HOURLY FOR ANAEROBIC COVERAGE FOR NOW. fOLLOW-UP CULTURES TO ADJUST ANTIBIOTICS. SURGERY ON BOARD. PATIENT FOR HIDA SCAN. CASE DISCUSSED WITH ATTENDING DR POTTER LAST NIGHT.
--- NOTE | 2016-12-03 13:39 | CON ---
DATE: 12/02/2016 REASON FOR CONSULTATION: Left facial swelling. HISTORY OF PRESENT ILLNESS: This is a 76-year-old male who for the past few days, has been having le ft facial swelling and pain, constant, moderate in intensity. PAST MEDICAL HISTORY: As noted on the chart by me. MEDICATIONS: As noted on the chart by me. PHYSICAL EXAMINATION: HEAD: Atraumatic, normocephalic. FACE: Good facial movements bilaterally. CONSTITUTIONAL: Well-developed, well-nourished. COMMUNICATION: Communicates very appropriately. EXTERNAL NOSE AND EARS: No masses, no lesions, no erythema, no edema. INTERNAL NOSE: Deviated septum, no masses, no lesions, no erythema, no edema. ORAL CAVITY AND OROPHARYNX: No masses, no lesions, no erythema, no edema. NECK: Supple. There is enlargement of the left parotid gland with no overlying erythema. It is fir m. THYROID: No thyromegaly, no goiter. LYMPH NODES: Mild lymphadenopathy around the area of the left parotid. LIPS AND GUMS: No masses, no lesions, no erythema, no edema. ASSESSMENT: Parotitis. PLAN: Continue IV antibiotics. Suggest a warm compress possibly to the face with sialogogues. Jean Marie Hollingsworth MD cc: [phone] TT: 12/03/2016 13:38:40 Confirmation # [id number] Dictation # [id number]
--- NOTE | 2016-12-03 14:08 | CON ---
DATE: 12/03/2016 I examined the patient. I reviewed it. I reviewed also 's note for me , as well as discussed this with everyone involved. Basically, this is a man who underwent colostomy closure in July and subsequently has an enterocutaneous fistula. He also has parotitis on the left side, an elevated white count and a variety of other problems. Basically, he is quite ill and has an enterocutaneous fistula with elevation of the white count of 21,000. It is difficult to state precisely where the fistula is coming from. One of the radiologists suggested that it might be coming from the colonic anastomosis. Nonetheless, it is hard to say for sure. In addition, there is a fair amount of inspissated stool throughout the colon. His family history, his social history, review of systems, and everything else was reviewed and noted. Basically, the findings at this time are control the sepsis. Drain any undrained areas and these do not appear to be present. I think that there are fairly extensive findings of inspissated stool throughout the colon. Perhaps we need to further study this with a GI series. If that is not diagnostic, then perhaps a barium enema as it is over 2 months since the anastomosis may be helpful. I will review this and discuss it with the different people involved. Clarence Hodges Jr., MD cc: [phone] TT: 12/03/2016 14:07:05 Confirmation # [id number] Dictation # [id number] luciano ESPANA
--- NOTE | 2016-12-03 14:14 | CARD ---
APPROVED REPORT EKG Measurement Heart [id number] <Conclusion> Sinus tachycardia Otherwise normal ECG
[2016-12-03] MEDS ORDERED: PPN#1 IV ONE (18:00)
[2016-12-03] MEDS: Fat Emulsion 20% IV 500 ML IV SCH (18:48)
[2016-12-04] MEDS: Piperacill/Tazo 3.375gm in Dex 3.375 GM/50 ML BAG IVPB SCH ×4 (00:10→18:09)
[2016-12-04] MEDS: metroNIDAZOLE IV 500 mg/100 ml 500 MG/100 ML BAG IVPB SCH ×3 (05:03→21:25)
[2016-12-04] MEDS: Dextrose 5%/0.9% NS 1,000 ML IV SCH ×2 (05:05→05:51)
[2016-12-04 07:01] LABS: BASO % 0.2 % (0.0-2.0); EOS # 0.1 K/uL (0.0-0.7); EOS % 0.3 % (0.0-4.0); HEMATOCRIT 32.8 % (35.0-51.0); LYMPH % 6.6 % (20.0-40.0); MEAN CELL VOLUME 95.7 fL (80.0-94.0); MEAN CORPUSCULAR HEMOGLOBIN 33.1 pg (27.0-31.0); MEAN CORPUSCULAR HGB CONC 34.6 g/dL (33.0-37.0); MONO # 0.5 K/uL (0.0-0.8); MONO % 3.3 % (0.0-10.0); PLATELET COUNT 330 K/uL (130-400); RED CELL DISTRIBUTION WIDTH 14.5 % (11.5-14.5); WHITE BLOOD COUNT 15.4 K/uL (4.8-10.8)
[2016-12-04 07:23] LABS: CHLORIDE 99 mmol/L (98-107)
[2016-12-04 07:24] LABS: SODIUM 139 mmol/L (132-148)
[2016-12-04 07:26] LABS: GFR AFRICAN-AMERICAN > 60
[2016-12-04 07:27] LABS: ALB/GLOB RATIO 0.8 (1.0-2.1); ALKALINE PHOSPHATASE 136 U/L (38-126); ALT/SGPT 20 U/L (21-72); AST/SGOT 23 U/L (17-59); BILIRUBIN,TOTAL 0.8 mg/dL (0.2-1.3); BLOOD UREA NITROGEN 44 mg/dL (9-20); CALCIUM 7.7 mg/dl (8.6-10.4); CARBON DIOXIDE 27 mmol/L (22-30); GLUCOSE,RANDOM 274 mg/dL (75-110); MAGNESIUM 2.2 mg/dL (1.6-2.3); PHOSPHOROUS 3.1 mg/dL (2.5-4.5); TOTAL PROTEIN 6.7 g/dL (6.3-8.3)
[2016-12-04] MEDS: (Novolog) Insulin Aspart, Recombinant 100 u/ml 10 ml vial SC SCH ×4 (08:22→21:29)
--- NOTE | 2016-12-04 08:24 | CP.PCM.PN ---
Subjective - Date & Time of Evaluation Date of Evaluation: 12/04/16 Time of Evaluation: 08:23 - Subjective Subjective: Surgery: Dr. Hodges Patient seems lethargic this am. He remains NPO. Output from fistula is extremely high, per documentation at 2000cc/24hrs. Objective - Vital Signs/Intake and Output Vital Signs (last 24 hours): Temp Pulse Resp BP Pulse Ox 98.4 F 97 H 20 109/77 99 12/04/16 08:09 12/04/16 08:09 12/04/16 08:09 12/04/16 08:09 12/04/16 08:09 Intake and Output: 12/04/16 12/04/16 06:59 18:59 Intake Total 2210 Output Total 2400 Balance -190 - Medications Medications: Current Medications Acetaminophen (Tylenol 650 Mg Supp) 650 mg RC Q4 PRN PRN Reason: Fever >101. F Heparin Sodium (Porcine) (Heparin) 5,000 units SC Q12H [facility] Metronidazole (Flagyl) 500 mg in 100 mls @ 100 mls/hr IVPB Q8 [facility] Last Admin: 12/04/16 05:03 Dose: 100 mls/hr Dextrose/Sodium Chloride (Dextrose 5%/0.9% Ns 1000 Ml) 1,000 mls @ 80 mls/hr IV .[id number] [facility] Last Admin: 12/04/16 05:51 Dose: Not Given Piperacillin Sod/Tazobactam Sod (Zosyn 3.375 Gm Iv Premix) 3.375 gm in 50 mls @ 100 mls/hr IVPB Q6H [facility] Last Admin: 12/04/16 05:02 Dose: 100 mls/hr Multivitamins/Vitamin C 10 ml/ (Amino Acids) 1,010 mls @ 63 mls/hr IV .Q16H2M [facility] Stop: 12/04/16 10:01 Last Admin: 12/03/16 18:49 Dose: 63 mls/hr Amino Acids (Clinimix 4.25/5 % (1000 Ml)) 1,000 mls @ 63 mls/hr IV .[id number] [facility] Stop: 12/04/16 17:59 Fat Emulsion Intravenous (Intralipid 20%) 500 mls @ 42 mls/hr IV MWF@1800 [facility] Stop: 12/09/16 18:01 Last Admin: 12/03/16 18:48 Dose: 42 mls/hr Potassium Chloride (Potassium Chloride 20 Meq/100 Ml) 20 meq in 100 mls @ 50 mls/hr IVPB Q2H [facility] Stop: 12/04/16 12:14 Last Admin: 12/04/16 08:22 Dose: 50 mls/hr Insulin Aspart (Novolog) 0 unit SC ACHS [facility] PRN Reason: Protocol Last Admin: 12/04/16 08:22 Dose: 6 unit Octreotide Acetate (Sandostatin) 100 mcg SC Q8 [facility] Stop: 12/09/16 08:31 - Labs Labs: 12/04/16 06:49 12/04/16 06:49 PT 11.4 SECONDS (9.7-12.2) 12/02/16 21:57 INR 1.0 12/02/16 21:57 APTT 37 SECONDS (21-34) H 12/02/16 21:57 - Constitutional Appears: Toxic, Cachectic, Chronically Ill - Head Exam Head Exam: ATRAUMATIC, NORMOCEPHALIC - ENT Exam ENT Exam: Mucous Membranes Dry Additional comments: enlarged parotid gland - Respiratory Exam Respiratory Exam: NORMAL BREATHING PATTERN. absent: Respiratory Distress - Cardiovascular Exam Cardiovascular Exam: Tachycardia, REGULAR RHYTHM - GI/Abdominal Exam GI & Abdominal Exam: Soft. absent: Tenderness Additional comments: ostomy appliance around EC fistulas w/ some leakage output extremely high - Extremities Exam Extremities Exam: absent: Calf Tenderness - Neurological Exam Neurological Exam: Alert, Awake - Psychiatric Exam Psychiatric exam: Normal Affect, Normal Mood - Skin Skin Exam: Dry, Normal Color, Warm Assessment and Plan - Assessment and Plan (Free Text) Assessment: 76 y/o male w/ sepsis, multifactorial source, with high output EC fistula, cholecystitis ruled out w/ negative HIDA Plan: -patient needs oral hygiene -ok for ice chips -trial of Octreotide for high output fistula for 5 days -monitor output closely, if decreases can continue octreotide -f/u small bowel follow through to help determine location of EC fistula -wound care for EC fistula ostomy appliance -cont abx -d/w Dr. Tracie Schuster PGY1
[2016-12-04] MEDS ORDERED: Barium Sulfate for Susp 98% w/w 340g Bottle ONE (09:13)
[2016-12-04] MEDS ORDERED: Barium Sulfate for Susp 96% w/w 176g Bottle PR ONE ×2 (09:13→09:14)
[2016-12-04 09:31] LABS: NEUTROPHIL 91 % (50-75); TOTAL CELLS COUNTED 100
[2016-12-04] MEDS ORDERED: PPN#2 IV SCH (10:02)
--- NOTE | 2016-12-04 10:41 | CP.PCM.PN ---
Subjective - Date & Time of Evaluation Date of Evaluation: 12/04/16 Time of Evaluation: 10:30 - Subjective Subjective: Afebrile. SWelling at left parotid same. Started on ice chips PO to improve oral hygiene. Output at the enterostomy tube wall. was 2000 cc. Started on octreotide . Wbc down to 15,000 today. K is down to 3. Will start on K. Objective - Vital Signs/Intake and Output Vital Signs (last 24 hours): Temp Pulse Resp BP Pulse Ox 98.4 F 97 H 20 109/77 99 12/04/16 08:09 12/04/16 08:09 12/04/16 08:09 12/04/16 08:09 12/04/16 08:09 Intake and Output: 12/04/16 12/04/16 06:59 18:59 Intake Total 2210 Output Total 2400 Balance -190 - Medications Medications: Current Medications Acetaminophen (Tylenol 650 Mg Supp) 650 mg RC Q4 PRN PRN Reason: Fever >101. F Heparin Sodium (Porcine) (Heparin) 5,000 units SC Q12H [facility] Metronidazole (Flagyl) 500 mg in 100 mls @ 100 mls/hr IVPB Q8 [facility] Last Admin: 12/04/16 05:03 Dose: 100 mls/hr Dextrose/Sodium Chloride (Dextrose 5%/0.9% Ns 1000 Ml) 1,000 mls @ 80 mls/hr IV .[id number] [facility] Last Admin: 12/04/16 05:51 Dose: Not Given Piperacillin Sod/Tazobactam Sod (Zosyn 3.375 Gm Iv Premix) 3.375 gm in 50 mls @ 100 mls/hr IVPB Q6H [facility] Last Admin: 12/04/16 05:02 Dose: 100 mls/hr Amino Acids (Clinimix 4.25/5 % (1000 Ml)) 1,000 mls @ 63 mls/hr IV .[id number] [facility] Stop: 12/04/16 17:59 Fat Emulsion Intravenous (Intralipid 20%) 500 mls @ 42 mls/hr IV MWF@1800 [facility] Stop: 12/09/16 18:01 Last Admin: 12/03/16 18:48 Dose: 42 mls/hr Potassium Chloride (Potassium Chloride 20 Meq/100 Ml) 20 meq in 100 mls @ 50 mls/hr IVPB Q2H [facility] Stop: 12/04/16 12:14 Last Admin: 12/04/16 08:22 Dose: 50 mls/hr Insulin Aspart (Novolog) 0 unit SC ACHS [facility] PRN Reason: Protocol Last Admin: 12/04/16 08:22 Dose: 6 unit Octreotide Acetate (Sandostatin) 100 mcg SC Q8H [facility] - Labs Labs: 12/04/16 06:49 12/04/16 06:49 PT 11.4 SECONDS (9.7-12.2) 12/02/16 21:57 INR 1.0 12/02/16 21:57 APTT 37 SECONDS (21-34) H 12/02/16 21:57 - Constitutional Appears: Toxic, Chronically Ill - Head Exam Head Exam: ATRAUMATIC, NORMAL INSPECTION, NORMOCEPHALIC - Eye Exam Pupil Exam: PERRL - Neck Exam Additional comments: Left parotid swollen and few submerbental lympadenopathy. - Respiratory Exam Respiratory Exam: NORMAL BREATHING PATTERN - Cardiovascular Exam Cardiovascular Exam: REGULAR RHYTHM, +S1, +S2 - GI/Abdominal Exam GI & Abdominal Exam: Tenderness Additional comments: Suprapubic colostomy - Psychiatric Exam Psychiatric exam: Depressed - Skin Skin Exam: Dry, Intact, Normal Color Assessment and Plan (1) Sepsis Status: Acute (2) Diverticulosis of colon Status: Chronic (3) Cholecystitis with cholelithiasis Status: Ruled-out - Assessment and Plan (Free Text) Assessment: Status--Acute. SEpsis Enterocutanoeous fistula persistent. Parotid swelling. Dehydration. Plan: Plan: Continue TPN IV fuids. Continue IV Flagyl and Zosyn. Continue K Oral hygiene.
[2016-12-04] MEDS ORDERED: Sodium Chloride 0.9% 1,000 ML IV SCH (11:30)
--- NOTE | 2016-12-04 16:15 | CP.PCM.PN ---
Subjective - Date & Time of Evaluation Date of Evaluation: 12/04/16 Time of Evaluation: 16:15 - Subjective Subjective: CHIEF COMPLAINTS TODAY : afebrile. LETHARGIC,NPO. lEFT NECK SWELLING +VE -SIALADENITIS ROS. HEENT : N.POOR ORAL HYGIENE Resp : No SOB wheezing, cough Cardio : No CP, PND orthopnea GI : No abd. Pain, n/v [employer] : No headache , focal deficit. Musculoskel : N Ext. : Pedal pulses intact, no edema or calf pain Derm : N Psych : N. PE. Pt. is AROUSABLE, WEAK in no distress. V.S As noted in the chart Head ,ear nose,throat and eyes : Normal. Neck : Supple with normal carotids. Lungs: Clear air entry. Heart : S1 & S2 normal . . No murmur. S4 + Abd : Soft non tender with normal bowel sounds.MIDLINE SUTURE ENTEROCUTANEOUS FISTULA WITH DRAINAGE STOOLS out put fistula reported as 2000 cc/per 24 hours. Neuro : Moves all ext. with no localized deficit. Ext : No edema with intact pulses. Neg. calf tenderness Derm : No rashes or decubitus ulcer. Radiology/Labs wbc 15.4 IMPROVING cREATININE 1.2/bun 44 K 3.0 BLOOD CULTURES NEGATIVE TO DATE uRINE CULTURE MULTIPLE SPECIES contaminant HIDA SCAN NEGATIVE FOR CHOLECYSTITIS. Objective - Vital Signs/Intake and Output Vital Signs (last 24 hours): Temp Pulse Resp BP Pulse Ox 98.4 F 97 H 20 109/77 99 12/04/16 08:09 12/04/16 08:09 12/04/16 08:09 12/04/16 08:09 12/04/16 08:09 Intake and Output: 12/04/16 12/04/16 06:59 18:59 Intake Total 2210 904 Output Total 2400 700 Balance -190 204 - Medications Medications: Current Medications Acetaminophen (Tylenol 650 Mg Supp) 650 mg RC Q4 PRN PRN Reason: Fever >101. F Heparin Sodium (Porcine) (Heparin) 5,000 units SC Q12H [facility] Last Admin: 12/04/16 11:35 Dose: 5,000 units Metronidazole (Flagyl) 500 mg in 100 mls @ 100 mls/hr IVPB Q8 [facility] Last Admin: 12/04/16 14:14 Dose: 100 mls/hr Piperacillin Sod/Tazobactam Sod (Zosyn 3.375 Gm Iv Premix) 3.375 gm in 50 mls @ 100 mls/hr IVPB Q6H [facility] Last Admin: 12/04/16 11:30 Dose: 100 mls/hr Amino Acids (Clinimix 4.25/5 % (1000 Ml)) 1,000 mls @ 63 mls/hr IV .[id number] [facility] Stop: 12/04/16 17:59 Last Admin: 12/04/16 11:36 Dose: 63 mls/hr Fat Emulsion Intravenous (Intralipid 20%) 500 mls @ 42 mls/hr IV MWF@1800 [facility] Stop: 12/09/16 18:01 Last Admin: 12/03/16 18:48 Dose: 42 mls/hr Multivitamins/Vitamin C 10 ml/ (Amino Acids) 1,010 mls @ 63 mls/hr IV .Q16H2M ONE Stop: 12/05/16 10:01 Amino Acids (Clinimix 4.25/5 % (1000 Ml)) 1,000 mls @ 63 mls/hr IV .[id number] [facility] Stop: 12/05/16 17:59 Sodium Chloride (Sodium Chloride 0.9%) 1,000 mls @ 50 mls/hr IV .Q20H [facility] Last Admin: 12/04/16 11:30 Dose: 50 mls/hr Insulin Aspart (Novolog) 0 unit SC ACHS [facility] PRN Reason: Protocol Last Admin: 12/04/16 12:24 Dose: 4 unit Octreotide Acetate (Sandostatin) 100 mcg SC Q8H [facility] Last Admin: 12/04/16 12:25 Dose: 100 mcg Potassium Chloride (K-Dur 20 Meq Er Tab) 20 meq PO BID [facility] Stop: 12/06/16 18:01 Potassium Chloride (K-Dur 20 Meq Er Tab) 20 meq PO DAILY [facility] - Labs Labs: 12/04/16 06:49 12/04/16 06:49 PT 11.4 SECONDS (9.7-12.2) 12/02/16 21:57 INR 1.0 12/02/16 21:57 APTT 37 SECONDS (21-34) H 12/02/16 21:57 Assessment and Plan (1) Sepsis Assessment & Plan: LEUKOCYTOSIS IS IMPROVING. bLOOD CULTURES NEGATIVE GROWTH TO DATE. uRINE CULTURES-MULTIPLE SPECIES - CONTAMINANT CONTINUE iv zOSYN 3.375 EVERY 8 HOURLY. cONTINUE iv fLAGYL 500 EVERY 8 HOURLY. Status: Acute (2) Cholecystitis without cholelithiasis Assessment & Plan: hida SCAN NEGATIVE FOR CHOLECYSTITIS. Status: Acute (3) Sialadenitis Assessment & Plan: ICE CHIPS GIVEN TO THE PATIENT TO IMPROVE OR HYGIENE. pATIENT CAN SUCK ON HARD CANDY TO IMPROVE SIALOADENITIS PRN. Status: Acute (4) Enterocutaneous fistula Assessment & Plan: PATIENT HAS CHRONIC ENTEROCUTANEOUS FISTULA WITH HIGH OUTPUT. aS PER SURGERY PATIENT TO BE STARTED ON OCTREOTIDE FOR 5 DAYS. pATIENT TO GO FOR SMALL BOWEL FOLLOW UP THROUGH TO LOCALIZE THE SITE OF FISTULA. aS PER SURGERY LOCAL WOUND CARE AND CARE OF OSTOMY SITE. Status: Acute (5) Anastomotic leak of intestine Status: Acute
[2016-12-04] MEDS ORDERED: PPN#3 IV ONE (18:00)
[2016-12-04] MEDS: Potassium Chloride 20 mEq ER Tab PO SCH (18:10)
[2016-12-05] MEDS: Piperacill/Tazo 3.375gm in Dex 3.375 GM/50 ML BAG IVPB SCH ×4 (00:06→18:14)
[2016-12-05] MEDS: metroNIDAZOLE IV 500 mg/100 ml 500 MG/100 ML BAG IVPB SCH ×3 (06:06→21:54)
[2016-12-05 07:58] LABS: BASO % 0.3 % (0.0-2.0); EOS # 0.2 K/uL (0.0-0.7); EOS % 1.6 % (0.0-4.0); HEMATOCRIT 31.3 % (35.0-51.0); LYMPH # 1.3 K/uL (1.0-4.3); LYMPH % 12.8 % (20.0-40.0); MEAN CELL VOLUME 96.2 fL (80.0-94.0); MEAN CORPUSCULAR HEMOGLOBIN 32.4 pg (27.0-31.0); MEAN CORPUSCULAR HGB CONC 33.7 g/dL (33.0-37.0); MEAN PLATELET VOLUME 8.1 fL (7.2-11.7); MONO # 0.5 K/uL (0.0-0.8); MONO % 4.9 % (0.0-10.0); WHITE BLOOD COUNT 10.3 K/uL (4.8-10.8)
[2016-12-05 08:28] LABS: POTASSIUM 3.3 mmol/L (3.6-5.2)
[2016-12-05 08:31] LABS: ALB/GLOB RATIO 0.8 (1.0-2.1); BILIRUBIN,TOTAL 0.7 mg/dL (0.2-1.3); TOTAL PROTEIN 6.2 g/dL (6.3-8.3)
[2016-12-05 08:32] LABS: CALCIUM 7.4 mg/dl (8.6-10.4)
[2016-12-05] MEDS: (Novolog) Insulin Aspart, Recombinant 100 u/ml 10 ml vial SC SCH ×4 (08:45→21:50)
[2016-12-05] MEDS: Potassium Chloride 20 mEq ER Tab PO SCH ×2 (09:43→17:47)
[2016-12-05] MEDS ORDERED: Iohexol 240 (50 ml) PO ONE (09:45)
--- NOTE | 2016-12-05 09:52 | CP.PCM.PN ---
Subjective - Date & Time of Evaluation Date of Evaluation: 12/05/16 Time of Evaluation: 09:49 - Subjective Subjective: Surgery: Dr. Hodges Patient doing better today. He denies any f/c. He states he is getting ice chips and oral care which is helpful. Per nursing report, fistula output has decreased to 1050cc/24hr from 1999/24hr. Patient has received a total of 3 doses of octreotide since yesterday. Objective - Vital Signs/Intake and Output Vital Signs (last 24 hours): Temp Pulse Resp BP Pulse Ox 97.8 F 82 18 98/61 L 99 12/05/16 08:24 12/05/16 08:24 12/05/16 08:24 12/05/16 08:24 12/05/16 08:24 Intake and Output: 12/05/16 12/05/16 06:59 18:59 Intake Total 1104 Output Total 350 Balance 754 - Medications Medications: Current Medications Acetaminophen (Tylenol 650 Mg Supp) 650 mg RC Q4 PRN PRN Reason: Fever >101. F Heparin Sodium (Porcine) (Heparin) 5,000 units SC Q12H [facility] Last Admin: 12/05/16 09:42 Dose: 5,000 units Metronidazole (Flagyl) 500 mg in 100 mls @ 100 mls/hr IVPB Q8 [facility] Last Admin: 12/05/16 06:06 Dose: 100 mls/hr Piperacillin Sod/Tazobactam Sod (Zosyn 3.375 Gm Iv Premix) 3.375 gm in 50 mls @ 100 mls/hr IVPB Q6H [facility] Last Admin: 12/05/16 05:36 Dose: 100 mls/hr Fat Emulsion Intravenous (Intralipid 20%) 500 mls @ 42 mls/hr IV MWF@1800 [facility] Stop: 12/09/16 18:01 Last Admin: 12/03/16 18:48 Dose: 42 mls/hr Multivitamins/Vitamin C 10 ml/ (Amino Acids) 1,010 mls @ 63 mls/hr IV .Q16H2M [facility] Stop: 12/05/16 10:01 Last Admin: 12/04/16 18:10 Dose: 63 mls/hr Amino Acids (Clinimix 4.25/5 % (1000 Ml)) 1,000 mls @ 63 mls/hr IV .[id number] [facility] Stop: 12/05/16 17:59 Last Admin: 12/05/16 09:43 Dose: 63 mls/hr Sodium Chloride (Sodium Chloride 0.9%) 1,000 mls @ 50 mls/hr IV .Q20H [facility] Last Admin: 12/04/16 11:30 Dose: 50 mls/hr Multivitamins/Vitamin C 10 ml/ (Amino Acids) 1,010 mls @ 63 mls/hr IV .Q16H2M [facility] Stop: 12/06/16 10:01 Amino Acids (Clinimix 4.25/5 % (1000 Ml)) 1,000 mls @ 63 mls/hr IV .[id number] [facility] Stop: 12/07/16 01:52 Insulin Aspart (Novolog) 0 unit SC ACHS [facility] PRN Reason: Protocol Last Admin: 12/05/16 08:45 Dose: 2 unit Octreotide Acetate (Sandostatin) 100 mcg SC Q8H [facility] Last Admin: 12/05/16 04:36 Dose: 100 mcg Potassium Chloride (K-Dur 20 Meq Er Tab) 20 meq PO BID [facility] Stop: 12/06/16 18:01 Last Admin: 12/05/16 09:43 Dose: 20 meq Potassium Chloride (K-Dur 20 Meq Er Tab) 20 meq PO DAILY [facility] - Labs Labs: 12/05/16 07:49 12/05/16 07:49 PT 11.4 SECONDS (9.7-12.2) 12/02/16 21:57 INR 1.0 12/02/16 21:57 APTT 37 SECONDS (21-34) H 12/02/16 21:57 - Constitutional Appears: Non-toxic, No Acute Distress, Chronically Ill - Head Exam Head Exam: ATRAUMATIC, NORMOCEPHALIC - Eye Exam Eye Exam: EOMI, Normal appearance - ENT Exam ENT Exam: Mucous Membranes Moist - Respiratory Exam Respiratory Exam: NORMAL BREATHING PATTERN. absent: Respiratory Distress - Cardiovascular Exam Cardiovascular Exam: REGULAR RHYTHM. absent: Tachycardia - GI/Abdominal Exam GI & Abdominal Exam: Soft. absent: Distended, Tenderness Additional comments: EC fistula w/ ostomy appliance - Neurological Exam Neurological Exam: Alert, Awake - Psychiatric Exam Psychiatric exam: Normal Affect, Normal Mood - Skin Skin Exam: Dry, Warm Assessment and Plan - Assessment and Plan (Free Text) Assessment: 76 y/o male w/ EC fistula, high output Plan: -cont octreotide and monitor EC fistula output -ok for ice chips and sips of water -cont oral care -PT -f/u imaging studies -further recs per Dr. Hodges, covering for Dr. Jeffery Schuster PGY1
[2016-12-05] MEDS ORDERED: PPN#4 IV SCH (10:02)
--- NOTE | 2016-12-05 11:01 | CP.PCM.CON ---
History of Present Illness - History of Present Illness History of Present Illness: 76 yo Fer male known to me from previous admission where he had an uncontrolled diverticular bleed requiring sigmoid resection. This surgery was complicated by an anastamotic leak and peritonitis requiring a temporary colostomy. This was reversed in 08/2016 but has been complicated by development of an enterocutaneous fistula and profound weight loss. Has been NPO and on Octeotide but has fecal drainage from fistula that appears on CT SCan to be originating at sigmoid anastamosis with air pockets in abdominal wall. Admitted with white count elevated and distended GB. Sono and HIDA Scan do not show stones nor cholecytitis. Prior surgical management has been with Dr Gil. ASked to see by Dr Woods for possible transfer to a tertiary facility for management of the fistula. Review of Systems - Cardiovascular Cardiovascular: absent: Chest Pain, Dyspnea - Respiratory Respiratory: absent: Cough, Dyspnea on Exertion, Snoring - Gastrointestinal Gastrointestinal: As Per HPI, Diarrhea Past Patient History - Infectious Disease Hx of Infectious Diseases: None - Tetanus Immunizations Tetanus Immunization: Unknown - Past Medical History & Family History Past Medical History?: Yes - Past Social History Smoking Status: Never Smoked Chewing Tobacco Use: No Cigar Use: No Alcohol: None Drugs: Denies Home Situation {Lives}: With Family - CARDIAC Hx Atrial Fibrillation: No Hx Hypercholesterolemia: Yes Hx Hypertension: Yes - PULMONARY Hx Respiratory Disorders: No - NEUROLOGICAL Hx Neurological Disorder: No - HEENT Hx HEENT Problems: Yes Hx Cataracts: Yes - RENAL Hx Kidney Stones: Yes (required left nephrostomy Dr Beckwith 2013) - ENDOCRINE/METABOLIC Hx Diabetes Mellitus Type 2: Yes - HEMATOLOGICAL/ONCOLOGICAL Hx Blood Disorders: No - INTEGUMENTARY Hx Dermatological Problems: No (dry skin) - MUSCULOSKELETAL/RHEUMATOLOGICAL Hx Falls: Yes - GASTROINTESTINAL Hx Gastrointestinal Disorders: Yes Hx Bowel Surgery: Yes Hx Diverticulitis: Yes Other/Comment: persistent enterocutaneous fistula. - GENITOURINARY/GYNECOLOGICAL Hx Genitourinary Disorders: Yes Other/Comment: left ureteral stone. - PSYCHIATRIC Hx Psychophysiologic Disorder: No Hx Substance Use: No - SURGICAL HISTORY Hx Surgeries: Yes Other/Comment: Partial left hemicolectomy. - ANESTHESIA Hx Anesthesia: Yes Hx Anesthesia Reactions: No Hx Malignant Hyperthermia: No Meds Allergies/Adverse Reactions: Allergies Allergy/AdvReac Type Severity Reaction Status Date / Time No Known Allergies Allergy Verified 12/02/16 21:23 - Medications Medications: Current Medications Acetaminophen (Tylenol 650 Mg Supp) 650 mg RC Q4 PRN PRN Reason: Fever >101. F Heparin Sodium (Porcine) (Heparin) 5,000 units SC Q12H [facility] Last Admin: 12/05/16 09:42 Dose: 5,000 units Metronidazole (Flagyl) 500 mg in 100 mls @ 100 mls/hr IVPB Q8 [facility] Last Admin: 12/05/16 06:06 Dose: 100 mls/hr Piperacillin Sod/Tazobactam Sod (Zosyn 3.375 Gm Iv Premix) 3.375 gm in 50 mls @ 100 mls/hr IVPB Q6H [facility] Last Admin: 12/05/16 05:36 Dose: 100 mls/hr Fat Emulsion Intravenous (Intralipid 20%) 500 mls @ 42 mls/hr IV MWF@1800 [facility] Stop: 12/09/16 18:01 Last Admin: 12/03/16 18:48 Dose: 42 mls/hr Amino Acids (Clinimix 4.25/5 % (1000 Ml)) 1,000 mls @ 63 mls/hr IV .[id number] [facility] Stop: 12/05/16 17:59 Last Admin: 12/05/16 09:43 Dose: 63 mls/hr Sodium Chloride (Sodium Chloride 0.9%) 1,000 mls @ 50 mls/hr IV .Q20H [facility] Last Admin: 12/04/16 11:30 Dose: 50 mls/hr Multivitamins/Vitamin C 10 ml/ (Amino Acids) 1,010 mls @ 63 mls/hr IV .Q16H2M [facility] Stop: 12/06/16 10:01 Amino Acids (Clinimix 4.25/5 % (1000 Ml)) 1,000 mls @ 63 mls/hr IV .[id number] [facility] Stop: 12/07/16 01:52 Insulin Aspart (Novolog) 0 unit SC ACHS [facility] PRN Reason: Protocol Last Admin: 12/05/16 08:45 Dose: 2 unit Octreotide Acetate (Sandostatin) 100 mcg SC Q8H [facility] Last Admin: 12/05/16 04:36 Dose: 100 mcg Potassium Chloride (K-Dur 20 Meq Er Tab) 20 meq PO BID [facility] Stop: 12/06/16 18:01 Last Admin: 12/05/16 09:43 Dose: 20 meq Potassium Chloride (K-Dur 20 Meq Er Tab) 20 meq PO DAILY [facility] Physical Exam - Constitutional Appears: No Acute Distress - Head Exam Head Exam: ATRAUMATIC, NORMOCEPHALIC - Eye Exam Eye Exam: EOMI, PERRL - Respiratory Exam Respiratory Exam: NORMAL BREATHING PATTERN - Cardiovascular Exam Cardiovascular Exam: REGULAR RHYTHM, +S1 - GI/Abdominal Exam GI & Abdominal Exam: Normal Bowel Sounds, Soft, Tenderness Additional comments: Midline lingitudinal scar with fistulous tracts noted at superior and inferior areas both draining stool into a drainage bag attached to skin over the area. Area is indurated and feels firm to the cutaneous and subcutaneous area around the middle of the scar. Scar itself is erythematous. No purulent drainage seen. - Extremities Exam Extremities exam: Positive for: normal inspection - Neurological Exam Neurological exam: Alert, Oriented x3 - Psychiatric Exam Psychiatric exam: Normal Affect, Normal Mood Results - Vital Signs Recent Vital Signs: Last Vital Signs Temp 97.8 F 12/05/16 08:24 Pulse 82 12/05/16 08:24 Resp 18 12/05/16 08:24 BP 98/61 L 12/05/16 08:24 Pulse Ox 99 12/05/16 08:24 - Labs Result Diagrams: 12/05/16 07:49 12/05/16 07:49 Labs: Laboratory Results - last 24 hr 12/04/16 12/04/16 12/04/16 11:23 16:51 21:11 WBC RBC Hgb Hct MCV MCH MCHC RDW Plt Count MPV Neut % (Auto) Lymph % (Auto) [place] % (Auto) Eos % (Auto) Baso % (Auto) Neut # Lymph # [place] # Eos # Baso # Sodium Potassium Chloride Carbon Dioxide Anion Gap BUN Creatinine Est GFR ( Amer) Est GFR (Non-Af Amer) POC Glucose (mg/dL) 224 H 214 H 165 H Random Glucose Calcium Total Bilirubin AST ALT Alkaline Phosphatase Total Protein Albumin Globulin Albumin/Globulin Ratio 12/05/16 12/05/16 12/05/16 06:48 07:49 07:49 WBC 10.3 RBC 3.26 L Hgb 10.6 L Hct 31.3 L MCV 96.2 H MCH 32.4 H MCHC 33.7 RDW 14.0 Plt Count 318 MPV 8.1 Neut % (Auto) 80.4 H Lymph % (Auto) 12.8 L [place] % (Auto) 4.9 Eos % (Auto) 1.6 Baso % (Auto) 0.3 Neut # 8.3 H Lymph # 1.3 [place] # 0.5 Eos # 0.2 Baso # 0.0 Sodium 135 Potassium 3.3 L Chloride 98 Carbon Dioxide 26 Anion Gap 14 BUN 54 H Creatinine 1.6 H Est GFR ( Amer) 51 Est GFR (Non-Af Amer) 42 POC Glucose (mg/dL) 185 H Random Glucose 179 H Calcium 7.4 L Total Bilirubin 0.7 AST 24 ALT 20 L Alkaline Phosphatase 108 Total Protein 6.2 L Albumin 2.8 L Globulin 3.4 Albumin/Globulin Ratio 0.8 L - Imaging and Cardiology CT scan - abdomen Status: Image reviewed by me, Report reviewed by me CT scan - pelvis Status: Image reviewed by me, Report reviewed by me US - abdomen Status: Report reviewed by me Assessment & Plan (1) Weight loss Status: Acute (2) H/O adenomatous polyp of colon Status: Acute (3) Diverticulosis large intestine w/o perforation or abscess w/o bleeding Status: Acute (4) Enterocutaneous fistula Assessment and Plan: Two draining fistuli appear to be communicating with area of sigmoid anastamosis. Has failed conservative therapy over the past two months with repeated readmission and continued weight loss. Initial surgery resulted in anastamotic leak and this resulted from reanastamosis of colostomy in August. Would appear to benefit from definitive surgical revision with either proximal colostomy or colectomy and resection of fistula with ileostomy. Will speak with some of my colleagues at [facility] or [facility] to see if they would accept him in transfer for further management. TPN for alternative feeding. Status: Acute (5) Sepsis Assessment and Plan: Antibiotics per ID Status: Acute
--- NOTE | 2016-12-05 11:07 | CP.PCM.PN ---
Subjective - Date & Time of Evaluation Date of Evaluation: 12/05/16 Time of Evaluation: 11:05 - Subjective Subjective: Afebrile. Patient clinically feeling very slightly better. Wbc-10,000, K-3.3 Output at fistula is lesser today on Octreotide. On TPN and 0.9 Nss drip. On PO ice chips. Upper GI series with small intestine follow up done yesterday, not resulted as of this time. Objective - Vital Signs/Intake and Output Vital Signs (last 24 hours): Temp Pulse Resp BP Pulse Ox 97.8 F 82 18 98/61 L 99 12/05/16 08:24 12/05/16 08:24 12/05/16 08:24 12/05/16 08:24 12/05/16 08:24 Intake and Output: 12/05/16 12/05/16 06:59 18:59 Intake Total 1104 Output Total 350 Balance 754 - Medications Medications: Current Medications Acetaminophen (Tylenol 650 Mg Supp) 650 mg RC Q4 PRN PRN Reason: Fever >101. F Heparin Sodium (Porcine) (Heparin) 5,000 units SC Q12H [facility] Last Admin: 12/05/16 09:42 Dose: 5,000 units Metronidazole (Flagyl) 500 mg in 100 mls @ 100 mls/hr IVPB Q8 [facility] Last Admin: 12/05/16 06:06 Dose: 100 mls/hr Piperacillin Sod/Tazobactam Sod (Zosyn 3.375 Gm Iv Premix) 3.375 gm in 50 mls @ 100 mls/hr IVPB Q6H [facility] Last Admin: 12/05/16 05:36 Dose: 100 mls/hr Fat Emulsion Intravenous (Intralipid 20%) 500 mls @ 42 mls/hr IV MWF@1800 [facility] Stop: 12/09/16 18:01 Last Admin: 12/03/16 18:48 Dose: 42 mls/hr Amino Acids (Clinimix 4.25/5 % (1000 Ml)) 1,000 mls @ 63 mls/hr IV .[id number] [facility] Stop: 12/05/16 17:59 Last Admin: 12/05/16 09:43 Dose: 63 mls/hr Sodium Chloride (Sodium Chloride 0.9%) 1,000 mls @ 50 mls/hr IV .Q20H [facility] Last Admin: 12/04/16 11:30 Dose: 50 mls/hr Multivitamins/Vitamin C 10 ml/ (Amino Acids) 1,010 mls @ 63 mls/hr IV .Q16H2M [facility] Stop: 12/06/16 10:01 Amino Acids (Clinimix 4.25/5 % (1000 Ml)) 1,000 mls @ 63 mls/hr IV .[id number] [facility] Stop: 12/07/16 01:52 Insulin Aspart (Novolog) 0 unit SC ACHS [facility] PRN Reason: Protocol Last Admin: 12/05/16 08:45 Dose: 2 unit Octreotide Acetate (Sandostatin) 100 mcg SC Q8H [facility] Last Admin: 12/05/16 04:36 Dose: 100 mcg Potassium Chloride (K-Dur 20 Meq Er Tab) 20 meq PO BID [facility] Stop: 12/06/16 18:01 Last Admin: 12/05/16 09:43 Dose: 20 meq Potassium Chloride (K-Dur 20 Meq Er Tab) 20 meq PO DAILY [facility] - Labs Labs: 12/05/16 07:49 12/05/16 07:49 PT 11.4 SECONDS (9.7-12.2) 12/02/16 21:57 INR 1.0 12/02/16 21:57 APTT 37 SECONDS (21-34) H 12/02/16 21:57 - Constitutional Appears: Chronically Ill - Head Exam Head Exam: ATRAUMATIC, NORMAL INSPECTION, NORMOCEPHALIC - Eye Exam Eye Exam: Normal appearance Pupil Exam: PERRL - ENT Exam ENT Exam: Mucous Membranes Dry - Neck Exam Neck Exam: Full ROM, Normal Inspection - Respiratory Exam Respiratory Exam: Clear to Ausculation Bilateral, NORMAL BREATHING PATTERN - Cardiovascular Exam Cardiovascular Exam: REGULAR RHYTHM, +S1, +S2 - GI/Abdominal Exam GI & Abdominal Exam: Soft Additional comments: Chronic fistula draining fecaloid material. - Rectal Exam Rectal Exam: Deferred - Extremities Exam Extremities Exam: Full ROM, Normal Inspection - Back Exam Back Exam: Full ROM, NORMAL INSPECTION - Neurological Exam Neurological Exam: Alert - Psychiatric Exam Psychiatric exam: Depressed - Skin Skin Exam: Dry, Intact, Normal Color Assessment and Plan (1) Sepsis Status: Acute (2) Diverticulosis of colon Status: Chronic (3) Cholecystitis with cholelithiasis Status: Ruled-out - Assessment and Plan (Free Text) Assessment: Assessment: Sepsis resolving. Chronic enterocutaneous fitula. Acute sialanitis left parotid and submandibular lymph nodes left. Hypokalemia. Plan: Plan: Continue IV Zosyn and Flagyl. Continue IV Fluids and TPN. Continue po K. Wound care with colostomy tube,
[2016-12-05] MEDS: Sodium Chloride 0.9% 1,000 ML IV SCH (11:35)
[2016-12-05] MEDS ORDERED: PPN#5 IV ONE (18:00)
[2016-12-05] MEDS: Fat Emulsion 20% IV 500 ML IV SCH (18:20)
--- NOTE | 2016-12-05 21:28 | CP.PCM.PN ---
Subjective - Date & Time of Evaluation Date of Evaluation: 12/05/16 Time of Evaluation: 21:26 - Subjective Subjective: CHIEF COMPLAINTS TODAY : afebrile. LETHARGIC,NPO. LEFT NECK SWELLING +VE -SIALADENITIS. SEEN BY GI. AND NOTED ROS. HEENT : N.POOR ORAL HYGIENE Resp : No SOB wheezing, cough Cardio : No CP, PND orthopnea GI : No abd. Pain, n/v +ve ENTEROCUTANEOUS FISTULA WITH DRAINING STOOLS. BEND UP : No headache , focal deficit. Musculoskel : N Ext. : Pedal pulses intact, no edema or calf pain Derm : N Psych : N. PE. Pt. is AROUSABLE, WEAK in no distress. V.S As noted in the chart Head ,ear nose,throat and eyes : Normal. Neck : Supple with normal carotids. Lungs: Clear air entry. Heart : S1 & S2 normal . . No murmur. S4 + Abd : Soft non tender with normal bowel sounds.MIDLINE SUTURE ENTEROCUTANEOUS FISTULA WITH DRAINAGE STOOLS out put fistula reported as HIGH. Neuro : Moves all ext. with no localized deficit. Ext : No edema with intact pulses. Neg. calf tenderness Derm : No rashes or decubitus ulcer. Radiology/Labs wbc 15.4--> 10.3 cREATININE 1.6/bun 54 -INCREASING BLOOD CULTURES NEGATIVE TO DATE uRINE CULTURE MULTIPLE SPECIES contaminant HIDA SCAN NEGATIVE FOR CHOLECYSTITIS. Objective - Vital Signs/Intake and Output Vital Signs (last 24 hours): Temp Pulse Resp BP Pulse Ox 97.5 F L 83 20 93/60 L 96 12/05/16 16:16 12/05/16 16:16 12/05/16 16:16 12/05/16 16:16 12/05/16 16:16 Intake and Output: 12/05/16 12/06/16 18:59 06:59 Intake Total 170 Balance 170 - Medications Medications: Current Medications Acetaminophen (Tylenol 650 Mg Supp) 650 mg RC Q4 PRN PRN Reason: Fever >101. F Heparin Sodium (Porcine) (Heparin) 5,000 units SC Q12H [facility] Last Admin: 12/05/16 09:42 Dose: 5,000 units Metronidazole (Flagyl) 500 mg in 100 mls @ 100 mls/hr IVPB Q8 [facility] Last Admin: 12/05/16 13:48 Dose: 100 mls/hr Fat Emulsion Intravenous (Intralipid 20%) 500 mls @ 42 mls/hr IV MWF@1800 [facility] Stop: 12/09/16 18:01 Last Admin: 12/05/16 18:20 Dose: 42 mls/hr Multivitamins/Vitamin C 10 ml/ (Amino Acids) 1,010 mls @ 63 mls/hr IV .Q16H2M [facility] Stop: 12/06/16 10:01 Last Admin: 12/05/16 18:19 Dose: 63 mls/hr Amino Acids (Clinimix 4.25/5 % (1000 Ml)) 1,000 mls @ 63 mls/hr IV .[id number] [facility] Stop: 12/07/16 01:52 Sodium Chloride (Sodium Chloride 0.9%) 1,000 mls @ 75 mls/hr IV .[id number] [facility] Last Admin: 12/05/16 11:35 Dose: 75 mls/hr Piperacillin Sod/Tazobactam Sod (Zosyn 2.25 Gm Iv Premix) 2.25 gm in 50 mls @ 100 mls/hr IVPB Q6H [facility] Insulin Aspart (Novolog) 0 unit SC ACHS [facility] PRN Reason: Protocol Last Admin: 12/05/16 17:46 Dose: 2 unit Octreotide Acetate (Sandostatin) 100 mcg SC Q8H [facility] Last Admin: 12/05/16 20:35 Dose: 100 mcg Potassium Chloride (K-Dur 20 Meq Er Tab) 20 meq PO BID [facility] Stop: 12/06/16 18:01 Last Admin: 12/05/16 17:47 Dose: 20 meq Potassium Chloride (K-Dur 20 Meq Er Tab) 20 meq PO DAILY [facility] - Labs Labs: 12/05/16 07:49 12/05/16 07:49 PT 11.4 SECONDS (9.7-12.2) 12/02/16 21:57 INR 1.0 12/02/16 21:57 APTT 37 SECONDS (21-34) H 12/02/16 21:57 Assessment and Plan (1) Sepsis Assessment & Plan: DECREASE iv zOSYN 2.25MG EVERY 6 HOURLY.12/05 RENAL FUNCTIONS INCREASING. CONTINUE iv fLAGYL 500 EVERY 8 HOURLY Status: Acute (2) Cholecystitis without cholelithiasis Status: Acute (3) Sialadenitis Status: Acute (4) Enterocutaneous fistula Assessment & Plan: patient seen by GI. Planning for possible transfer to tertiary care[facility]. Presently on octreotide PER SURGERY. Status: Acute (5) Anastomotic leak of intestine Status: Acute
[2016-12-06] MEDS: Piperacill/Tazo 2.25gm in Dex 2.25 GM/50 ML BAG IVPB SCH ×4 (00:29→17:30)
[2016-12-06] MEDS: Sodium Chloride 0.9% 1,000 ML IV SCH ×2 (00:50→14:08)
[2016-12-06] MEDS: metroNIDAZOLE IV 500 mg/100 ml 500 MG/100 ML BAG IVPB SCH ×3 (06:13→21:36)
[2016-12-06 07:35] LABS: BASO # 0.1 K/uL (0.0-0.2); BASO % 0.7 % (0.0-2.0); EOS # 0.3 K/uL (0.0-0.7); EOS % 2.9 % (0.0-4.0); HEMATOCRIT 30.3 % (35.0-51.0); LYMPH # 1.2 K/uL (1.0-4.3); LYMPH % 13.7 % (20.0-40.0); MEAN CELL VOLUME 94.9 fL (80.0-94.0); MEAN CORPUSCULAR HEMOGLOBIN 32.9 pg (27.0-31.0); MEAN CORPUSCULAR HGB CONC 34.7 g/dL (33.0-37.0); MEAN PLATELET VOLUME 8.1 fL (7.2-11.7); MONO # 0.5 K/uL (0.0-0.8); MONO % 5.5 % (0.0-10.0); NRBC % 0.1 % (0.0-2.0); RED CELL DISTRIBUTION WIDTH 13.6 % (11.5-14.5); WHITE BLOOD COUNT 8.8 K/uL (4.8-10.8)
[2016-12-06] MEDS: (Novolog) Insulin Aspart, Recombinant 100 u/ml 10 ml vial SC SCH ×4 (07:53→21:31)
[2016-12-06 08:03] LABS: POTASSIUM 3.1 mmol/L (3.6-5.2)
[2016-12-06 08:05] LABS: ALB/GLOB RATIO 0.7 (1.0-2.1); BILIRUBIN,TOTAL 0.7 mg/dL (0.2-1.3); TOTAL PROTEIN 6.1 g/dL (6.3-8.3)
[2016-12-06 08:06] LABS: CALCIUM 7.2 mg/dl (8.6-10.4)
[2016-12-06] MEDS ORDERED: PPN#6 IV ONE (10:00)
[2016-12-06] MEDS: Potassium Chloride 20 mEq ER Tab PO SCH ×2 (10:30→17:30)
--- NOTE | 2016-12-06 10:50 | CP.PCM.PN ---
Subjective - Date & Time of Evaluation Date of Evaluation: 12/06/16 Time of Evaluation: 10:50 - Subjective Subjective: Still with moderate fecal drainage through fistula Case discussed with Dr Janes Ledbetter- Colorectal surgeon at [place] who also reviewed his CT SCan from admission. Objective - Vital Signs/Intake and Output Vital Signs (last 24 hours): Temp Pulse Resp BP Pulse Ox 98 F 80 20 125/70 98 12/06/16 08:00 12/06/16 08:00 12/06/16 08:00 12/06/16 08:00 12/06/16 08:00 Intake and Output: 12/06/16 12/06/16 06:59 18:59 Intake Total 1920 Output Total 1000 Balance 920 - Medications Medications: Current Medications Acetaminophen (Tylenol 650 Mg Supp) 650 mg RC Q4 PRN PRN Reason: Fever >101. F Heparin Sodium (Porcine) (Heparin) 5,000 units SC Q12H [facility] Last Admin: 12/06/16 10:30 Dose: 5,000 units Metronidazole (Flagyl) 500 mg in 100 mls @ 100 mls/hr IVPB Q8 [facility] Last Admin: 12/06/16 06:13 Dose: 100 mls/hr Amino Acids (Clinimix 4.25/5 % (1000 Ml)) 1,000 mls @ 63 mls/hr IV .[id number] ONE Stop: 12/07/16 01:52 Last Admin: 12/06/16 10:31 Dose: 63 mls/hr Sodium Chloride (Sodium Chloride 0.9%) 1,000 mls @ 75 mls/hr IV .[id number] [facility] Last Admin: 12/06/16 00:50 Dose: Not Given Piperacillin Sod/Tazobactam Sod (Zosyn 2.25 Gm Iv Premix) 2.25 gm in 50 mls @ 100 mls/hr IVPB Q6H [facility] Last Admin: 12/06/16 05:26 Dose: 100 mls/hr Multivitamins/Vitamin C 10 ml/ (Amino Acids) 1,010 mls @ 63 mls/hr IV .[id number] [facility] Stop: 12/07/16 10:01 Amino Acids (Clinimix 4.25/5 % (1000 Ml)) 1,000 mls @ 63 mls/hr IV .[id number] [facility] Stop: 12/07/16 17:59 Insulin Aspart (Novolog) 0 unit SC ACHS [facility] PRN Reason: Protocol Last Admin: 12/06/16 07:53 Dose: 4 unit Octreotide Acetate (Sandostatin) 100 mcg SC Q8H [facility] Last Admin: 12/06/16 04:18 Dose: 100 mcg Potassium Chloride (K-Dur 20 Meq Er Tab) 20 meq PO BID [facility] Stop: 12/06/16 18:01 Last Admin: 12/06/16 10:30 Dose: 20 meq Potassium Chloride (K-Dur 20 Meq Er Tab) 20 meq PO DAILY [facility] - Labs Labs: 12/06/16 07:22 12/06/16 07:22 PT 11.4 SECONDS (9.7-12.2) 12/02/16 21:57 INR 1.0 12/02/16 21:57 APTT 37 SECONDS (21-34) H 12/02/16 21:57 - Constitutional Appears: No Acute Distress - Head Exam Head Exam: ATRAUMATIC, NORMOCEPHALIC - Eye Exam Eye Exam: PERRL - Respiratory Exam Respiratory Exam: NORMAL BREATHING PATTERN - Cardiovascular Exam Cardiovascular Exam: REGULAR RHYTHM - GI/Abdominal Exam GI & Abdominal Exam: Soft, Tenderness, Normal Bowel Sounds Additional comments: Drainage into applicance from dual fistula tracts. No pus. - Extremities Exam Extremities Exam: Normal Inspection Assessment and Plan (1) Weight loss Assessment & Plan: Consider TPN. Status: Acute (2) H/O adenomatous polyp of colon Status: Inactive (3) Diverticulosis large intestine w/o perforation or abscess w/o bleeding Status: Chronic (4) Enterocutaneous fistula Assessment & Plan: Dr Ledbetter feels that patient has failed conservative therapy and that fistula is unlikely to close. He recommends an ileostomy to allow the sigmoid area to heal and fistula to close. At that time he can be evaluated for resection of the diseased area in the LLQ and reanastamosis. He would accept patient for transfer to [place] next week as long as Medicare approves transfer on the basis that does not have a colorectal surgeon to perform the procedures on this patient. I have provided demographic information to his office to have them deal with the [place] Transfer office. He would only accept the transfer if patient and family are agreeable to this plan. I have discussed the need for ileostomy with Jensen today as only real option to allow healing of fistula and repair of sigmoid. He questioned what imaging studies were done in [facility] to determine the sigmoid area was suitable for reanastamosis at that time. Continue supportive care for now. Conisderation for an ileostomy to be done here but would prefer deferring further surgery to a Colorectal specialist. Patient will speak to Dr Woods further on this matter. Status: Acute (5) Sepsis Status: Acute
--- NOTE | 2016-12-06 10:57 | CP.PCM.PN ---
Subjective - Date & Time of Evaluation Date of Evaluation: 12/06/16 Time of Evaluation: 10:52 - Subjective Subjective: Surgery: Dr. Gil Patient feeling much better today. He is receiving oral care and tolerating ice and sips. Per nursing total output from EC fistula was 1000cc/24hrs. Objective - Vital Signs/Intake and Output Vital Signs (last 24 hours): Temp Pulse Resp BP Pulse Ox 98 F 80 20 125/70 98 12/06/16 08:00 12/06/16 08:00 12/06/16 08:00 12/06/16 08:00 12/06/16 08:00 Intake and Output: 12/06/16 12/06/16 06:59 18:59 Intake Total 1920 Output Total 1000 Balance 920 - Medications Medications: Current Medications Acetaminophen (Tylenol 650 Mg Supp) 650 mg RC Q4 PRN PRN Reason: Fever >101. F Heparin Sodium (Porcine) (Heparin) 5,000 units SC Q12H [facility] Last Admin: 12/06/16 10:30 Dose: 5,000 units Metronidazole (Flagyl) 500 mg in 100 mls @ 100 mls/hr IVPB Q8 [facility] Last Admin: 12/06/16 06:13 Dose: 100 mls/hr Amino Acids (Clinimix 4.25/5 % (1000 Ml)) 1,000 mls @ 63 mls/hr IV .[id number] [facility] Stop: 12/07/16 01:52 Last Admin: 12/06/16 10:31 Dose: 63 mls/hr Sodium Chloride (Sodium Chloride 0.9%) 1,000 mls @ 75 mls/hr IV .[id number] [facility] Last Admin: 12/06/16 00:50 Dose: Not Given Piperacillin Sod/Tazobactam Sod (Zosyn 2.25 Gm Iv Premix) 2.25 gm in 50 mls @ 100 mls/hr IVPB Q6H [facility] Last Admin: 12/06/16 05:26 Dose: 100 mls/hr Multivitamins/Vitamin C 10 ml/ (Amino Acids) 1,010 mls @ 63 mls/hr IV .Q16H2M [facility] Stop: 12/07/16 10:01 Amino Acids (Clinimix 4.25/5 % (1000 Ml)) 1,000 mls @ 63 mls/hr IV .[id number] [facility] Stop: 12/07/16 17:59 Insulin Aspart (Novolog) 0 unit SC ACHS [facility] PRN Reason: Protocol Last Admin: 12/06/16 07:53 Dose: 4 unit Octreotide Acetate (Sandostatin) 100 mcg SC Q8H [facility] Last Admin: 12/06/16 04:18 Dose: 100 mcg Potassium Chloride (K-Dur 20 Meq Er Tab) 20 meq PO BID [facility] Stop: 12/06/16 18:01 Last Admin: 12/06/16 10:30 Dose: 20 meq Potassium Chloride (K-Dur 20 Meq Er Tab) 20 meq PO DAILY [facility] - Labs Labs: 12/06/16 07:22 12/06/16 07:22 PT 11.4 SECONDS (9.7-12.2) 12/02/16 21:57 INR 1.0 12/02/16 21:57 APTT 37 SECONDS (21-34) H 12/02/16 21:57 - Constitutional Appears: Non-toxic, No Acute Distress, Chronically Ill - Head Exam Head Exam: ATRAUMATIC, NORMOCEPHALIC - Eye Exam Eye Exam: EOMI - ENT Exam ENT Exam: Mucous Membranes Dry - Respiratory Exam Respiratory Exam: NORMAL BREATHING PATTERN. absent: Respiratory Distress - Cardiovascular Exam Cardiovascular Exam: REGULAR RHYTHM - GI/Abdominal Exam GI & Abdominal Exam: Soft. absent: Distended, Tenderness Assessment and Plan - Assessment and Plan (Free Text) Assessment: 76 y/o male w/ high output EC fistula, output decreasing Plan: -cont octreotide -cont TPN -cont electrolyte supplementation -monitor output -if continues to decrease will cont octreotide -further recs per Dr. Jeffery Schuster PGY1
--- NOTE | 2016-12-06 10:59 | CT ---
PROCEDURE: CT Abdomen and Pelvis with contrast HISTORY: source of fistula Relevant surgical history: Left william colectomy. COMPARISON: 12/02/2016 CT abdomen and pelvis. TECHNIQUE: Contrast dose: Oral contrast only. Radiation dose: Total exam DLP = 609.68 mGy-cm. This CT exam was performed using one or more of the following dose reduction techniques: Automated exposure control, adjustment of the mA and/or kV according to patient size, and/or use of iterative reconstruction technique. FINDINGS: LOWER THORAX: Unremarkable. LIVER: Unremarkable. No gross lesion or ductal dilatation. GALLBLADDER AND BILE DUCTS: Distended gallbladder is otherwise unremarkable. PANCREAS: Unremarkable. No gross lesion or ductal dilatation. SPLEEN: Unremarkable. ADRENALS: Unremarkable. No mass. KIDNEYS AND URETERS: Nonobstructing 6.4 mm calculus lower pole left kidney. Incidental finding(s): Left renal cyst superior aspect of the left kidney 2.5 cm. VASCULATURE: Unremarkable. No aortic aneurysm. BOWEL: Postoperative findings related to left william colectomy and anastomosis. Anterior abdominal wall sinus tracts (2 periumbilical location. One of these is midline, the 2nd is to the right of the midline. In a more caudal direction there cutaneous and subcutaneous inflammatory changes with additional fistulous tract between adjacent bowel and the anterior abdominal wall. This includes additional anterior (more cephalad) sinus track and a more caudal blind tract to the skin surface which is midline contains air fluid and debris. There is no drainable collection per se. More phlegmonous and postinflammatory changes are seen. These extend over a cephalocaudal distance of 14 cm Please note: The periumbilical fistulous tracts, these are marked on axial series 3, image 102. The more cephalad components can be seen series 3, image 114 through 147. The more caudal component extend to the level of the sigmoid colon region, anastomosis. The superior to be contiguous with adhesive loops of small bowel anterior abdominal wall. No evidence of mechanical bowel obstruction. APPENDIX: Normal appendix. PERITONEUM: No free air, free fluid or drainable collection. LYMPH NODES: Unremarkable. No enlarged lymph nodes. BLADDER: Unremarkable. REPRODUCTIVE: Unremarkable. BONES: No acute fracture. OTHER FINDINGS: None. IMPRESSION: 1. Multiple fistulous tracts extending from the peritoneal cavity to the anterior abdominal wall. 2. Two separate and distinct fistulous tracts periumbilical location. 3. More diffuse and infiltrative sinus tracts infraumbilical region extending into the pelvis over a distance of approximately 14 cm. These are both described in greater detail and marked on the accompanying studies for review. 4. No drainable collection associated with these tracts and phlegmonous process ease. 5. Nonobstructing lower pole calculi left kidney. Additional benign and/or incidental findings described above.
[2016-12-06] MEDS ORDERED: PPN #7 IV ONE (18:00)
--- NOTE | 2016-12-06 20:45 | CP.PCM.PN ---
Subjective - Date & Time of Evaluation Date of Evaluation: 12/06/16 Time of Evaluation: 20:44 - Subjective Subjective: AFEBRILE, NO NEW COMPLAINTS, TOLERATING IV ABX ENTEROCUTANEOUS FISTULA STILL WITH HIGH OUTPUT STATES GI ARRANGING FOR TRANSFER TO A TERTIARY CARE . Objective - Vital Signs/Intake and Output Vital Signs (last 24 hours): Temp Pulse Resp BP Pulse Ox 97.7 F 76 20 115/72 97 12/06/16 15:26 12/06/16 19:13 12/06/16 15:26 12/06/16 15:26 12/06/16 15:26 Intake and Output: 12/06/16 12/07/16 18:59 06:59 Intake Total 270 Output Total 400 Balance -130 - Medications Medications: Current Medications Acetaminophen (Tylenol 650 Mg Supp) 650 mg RC Q4 PRN PRN Reason: Fever >101. F Heparin Sodium (Porcine) (Heparin) 5,000 units SC Q12H [facility] Last Admin: 12/06/16 10:30 Dose: 5,000 units Metronidazole (Flagyl) 500 mg in 100 mls @ 100 mls/hr IVPB Q8 [facility] Last Admin: 12/06/16 13:56 Dose: 100 mls/hr Amino Acids (Clinimix 4.25/5 % (1000 Ml)) 1,000 mls @ 63 mls/hr IV .[id number] [facility] Stop: 12/07/16 01:52 Last Admin: 12/06/16 10:31 Dose: 63 mls/hr Sodium Chloride (Sodium Chloride 0.9%) 1,000 mls @ 75 mls/hr IV .[id number] [facility] Last Admin: 12/06/16 14:08 Dose: 75 mls/hr Piperacillin Sod/Tazobactam Sod (Zosyn 2.25 Gm Iv Premix) 2.25 gm in 50 mls @ 100 mls/hr IVPB Q6H [facility] Last Admin: 12/06/16 17:30 Dose: 100 mls/hr Multivitamins/Vitamin C 10 ml/ (Amino Acids) 1,010 mls @ 63 mls/hr IV .Q16H2M [facility] Stop: 12/07/16 10:01 Last Admin: 12/06/16 18:37 Dose: 63 mls/hr Amino Acids (Clinimix 4.25/5 % (1000 Ml)) 1,000 mls @ 63 mls/hr IV .[id number] [facility] Stop: 12/07/16 17:59 Insulin Aspart (Novolog) 0 unit SC ACHS [facility] PRN Reason: Protocol Last Admin: 12/06/16 16:40 Dose: 2 unit Octreotide Acetate (Sandostatin) 100 mcg SC Q8H [facility] Last Admin: 12/06/16 19:49 Dose: 100 mcg Potassium Chloride (Potassium Chloride Oral Soln) 20 meq PO DAILY [facility] - Labs Labs: 12/06/16 07:22 12/06/16 07:22 PT 11.4 SECONDS (9.7-12.2) 12/02/16 21:57 INR 1.0 12/02/16 21:57 APTT 37 SECONDS (21-34) H 12/02/16 21:57 - Head Exam Head Exam: NORMAL INSPECTION - Eye Exam Eye Exam: EOMI, PERRL - ENT Exam ENT Exam: Normal Oropharynx - Neck Exam Neck Exam: Normal Inspection - Respiratory Exam Respiratory Exam: Clear to Ausculation Bilateral - Cardiovascular Exam Cardiovascular Exam: REGULAR RHYTHM, +S1, +S2 - GI/Abdominal Exam GI & Abdominal Exam: Soft, Normal Bowel Sounds (ENTERCUTANEOUS FISTULA DRAING STOOLS IN BAG.) - Extremities Exam Extremities Exam: absent: Calf Tenderness, Pedal Edema - Neurological Exam Neurological Exam: Awake, Oriented x3 - Psychiatric Exam Psychiatric exam: Normal Mood - Skin Skin Exam: Normal Color, Warm Assessment and Plan (1) Sepsis Assessment & Plan: ON iv zOSYN 2.25MG EVERY 6 HOURLY.12/05 RENAL FUNCTIONS INCREASING. CONTINUE iv fLAGYL 500 EVERY 8 HOURLYL LABS ; BLOOD CULTURES -VE TO DATE. Urine cultures 50,000- 100,000 multiple species contaminant Abdominal wound culture- pending. Status: Acute (2) Cholecystitis without cholelithiasis Status: Acute (3) Sialadenitis Assessment & Plan: ICE CHIPS /AND HARD CANDY TO SUCK. Status: Acute (4) Enterocutaneous fistula Assessment & Plan: PER GI. SEE NOTES. PATIENT ON OCREOTIDE 100 MCG SUBCUTANEOUS EVERY 8 HOURLY PER SURGERY. Status: Acute (5) Anastomotic leak of intestine Status: Acute
[2016-12-07] MEDS: metroNIDAZOLE IV 500 mg/100 ml 500 MG/100 ML BAG IVPB SCH ×3 (05:14→22:21)
[2016-12-07] MEDS: Piperacill/Tazo 2.25gm in Dex 2.25 GM/50 ML BAG IVPB SCH ×4 (06:19→18:41)
[2016-12-07 06:58] LABS: BASO % 0.6 % (0.0-2.0); EOS # 0.2 K/uL (0.0-0.7); EOS % 3.3 % (0.0-4.0); HEMATOCRIT 29.2 % (35.0-51.0); LYMPH # 1.3 K/uL (1.0-4.3); LYMPH % 18.8 % (20.0-40.0); MEAN CELL VOLUME 94.7 fL (80.0-94.0); MEAN CORPUSCULAR HEMOGLOBIN 32.5 pg (27.0-31.0); MEAN CORPUSCULAR HGB CONC 34.3 g/dL (33.0-37.0); MEAN PLATELET VOLUME 7.9 fL (7.2-11.7); MONO # 0.4 K/uL (0.0-0.8); MONO % 6.3 % (0.0-10.0); NRBC % 0.1 % (0.0-2.0); RED CELL DISTRIBUTION WIDTH 13.6 % (11.5-14.5); WHITE BLOOD COUNT 6.8 K/uL (4.8-10.8)
[2016-12-07 07:19] LABS: CHLORIDE 101 mmol/L (98-107); SODIUM 132 mmol/L (132-148)
[2016-12-07 07:20] LABS: POTASSIUM 3.1 mmol/L (3.6-5.2)
[2016-12-07 07:22] LABS: ALB/GLOB RATIO 0.7 (1.0-2.1); ALKALINE PHOSPHATASE 85 U/L (38-126); ALT/SGPT 24 U/L (21-72); AST/SGOT 32 U/L (17-59); BILIRUBIN,TOTAL 0.6 mg/dL (0.2-1.3); BLOOD UREA NITROGEN 40 mg/dL (9-20); CARBON DIOXIDE 22 mmol/L (22-30); GFR AFRICAN-AMERICAN > 60; TOTAL PROTEIN 5.7 g/dL (6.3-8.3)
[2016-12-07 07:23] LABS: CALCIUM 7.1 mg/dl (8.6-10.4); GLUCOSE,RANDOM 145 mg/dL (75-110)
[2016-12-07] MEDS ORDERED: Potassium Chloride 20 mEq ER Tab PO SCH (10:00)
[2016-12-07] MEDS ORDERED: Potassium Chloride 20 mEq/15 ml LIQ UD PO SCH (10:00)
[2016-12-07] MEDS ORDERED: PPN #8 IV SCH (10:02)
--- NOTE | 2016-12-07 10:18 | CP.PCM.PN ---
Subjective - Date & Time of Evaluation Date of Evaluation: 12/07/16 Time of Evaluation: 10:15 - Subjective Subjective: Surgery: Dr. Gil Patient doing better today. He deneis n/c/f/c. He reports feeling a bit stronger. Per nursing, output from fistula was 550cc/24hrs. Objective - Vital Signs/Intake and Output Vital Signs (last 24 hours): Temp Pulse Resp BP Pulse Ox 97.6 F 80 20 93/57 L 97 12/07/16 08:10 12/07/16 08:10 12/07/16 08:10 12/07/16 08:10 12/07/16 08:10 Intake and Output: 12/07/16 12/07/16 06:59 18:59 Intake Total 2105 Output Total 950 Balance 1155 - Medications Medications: Current Medications Acetaminophen (Tylenol 650 Mg Supp) 650 mg RC Q4 PRN PRN Reason: Fever >101. F Metronidazole (Flagyl) 500 mg in 100 mls @ 100 mls/hr IVPB Q8 [facility] Last Admin: 12/07/16 05:14 Dose: 100 mls/hr Sodium Chloride (Sodium Chloride 0.9%) 1,000 mls @ 75 mls/hr IV .[id number] [facility] Last Admin: 12/06/16 14:08 Dose: 75 mls/hr Piperacillin Sod/Tazobactam Sod (Zosyn 2.25 Gm Iv Premix) 2.25 gm in 50 mls @ 100 mls/hr IVPB Q6H [facility] Last Admin: 12/07/16 06:19 Dose: 100 mls/hr Amino Acids (Clinimix 4.25/5 % (1000 Ml)) 1,000 mls @ 63 mls/hr IV .[id number] [facility] Stop: 12/07/16 17:59 Multivitamins/Vitamin C 10 ml/ (Amino Acids) 1,010 mls @ 63 mls/hr IV .Q16H2M [facility] Stop: 12/08/16 10:01 Amino Acids (Clinimix 4.25/5 % (1000 Ml)) 1,000 mls @ 63 mls/hr IV .[id number] [facility] Stop: 12/08/16 17:59 Insulin Aspart (Novolog) 0 unit SC ACHS [facility] PRN Reason: Protocol Last Admin: 12/06/16 21:31 Dose: Not Given Octreotide Acetate (Sandostatin) 100 mcg SC Q8H [facility] Last Admin: 12/07/16 04:27 Dose: 100 mcg - Labs Labs: 12/07/16 06:50 12/07/16 06:50 PT 11.4 SECONDS (9.7-12.2) 12/02/16 21:57 INR 1.0 12/02/16 21:57 APTT 37 SECONDS (21-34) H 12/02/16 21:57 - Constitutional Appears: Non-toxic, No Acute Distress, Chronically Ill - Head Exam Head Exam: ATRAUMATIC, NORMOCEPHALIC - Eye Exam Eye Exam: EOMI - ENT Exam ENT Exam: Mucous Membranes Moist - Respiratory Exam Respiratory Exam: NORMAL BREATHING PATTERN. absent: Respiratory Distress - Cardiovascular Exam Cardiovascular Exam: REGULAR RHYTHM. absent: Tachycardia - GI/Abdominal Exam GI & Abdominal Exam: Soft. absent: Distended, Tenderness Additional comments: ostomy appliance - Extremities Exam Extremities Exam: Normal Inspection. absent: Calf Tenderness - Neurological Exam Neurological Exam: Alert, Awake Assessment and Plan - Assessment and Plan (Free Text) Assessment: 76 y/o male w/ EC fistula, output continues to decrease Plan: -cont octreotide -output decreasing significantly and overall clinical status improving -no surgical intervention planned at this time -cont to treat medically -cont TPN -cont NPO w/ magnolia chips -cont oral care -d/w Dr. Jeffery Schuster PGY1
[2016-12-07] MEDS: (Novolog) Insulin Aspart, Recombinant 100 u/ml 10 ml vial SC SCH ×4 (10:24→22:22)
--- NOTE | 2016-12-07 10:38 | CP.PCM.PN ---
Subjective - Date & Time of Evaluation Date of Evaluation: 12/07/16 Time of Evaluation: 10:35 - Subjective Subjective: Afebril;e. BP in the low 90,s. fistular discaherge is much smaller. Patient is urinating well. K-3.1, Hgb is normal. WBC is normal. Will try to give him sips of broth today. Objective - Vital Signs/Intake and Output Vital Signs (last 24 hours): Temp Pulse Resp BP Pulse Ox 97.6 F 80 20 93/57 L 97 12/07/16 08:10 12/07/16 08:10 12/07/16 08:10 12/07/16 08:10 12/07/16 08:10 Intake and Output: 12/07/16 12/07/16 06:59 18:59 Intake Total 2105 Output Total 950 Balance 1155 - Medications Medications: Current Medications Acetaminophen (Tylenol 650 Mg Supp) 650 mg RC Q4 PRN PRN Reason: Fever >101. F Enoxaparin Sodium (Lovenox) 30 mg SC DAILY [facility] Metronidazole (Flagyl) 500 mg in 100 mls @ 100 mls/hr IVPB Q8 [facility] Last Admin: 12/07/16 05:14 Dose: 100 mls/hr Piperacillin Sod/Tazobactam Sod (Zosyn 2.25 Gm Iv Premix) 2.25 gm in 50 mls @ 100 mls/hr IVPB Q6H [facility] Last Admin: 12/07/16 06:19 Dose: 100 mls/hr Amino Acids (Clinimix 4.25/5 % (1000 Ml)) 1,000 mls @ 63 mls/hr IV .[id number] [facility] Stop: 12/07/16 17:59 Multivitamins/Vitamin C 10 ml/ (Amino Acids) 1,010 mls @ 63 mls/hr IV .Q16H2M [facility] Stop: 12/08/16 10:01 Amino Acids (Clinimix 4.25/5 % (1000 Ml)) 1,000 mls @ 63 mls/hr IV .[id number] [facility] Stop: 12/08/16 17:59 Potassium Chloride 40 meq/ (Sodium Chloride) 1,020 mls @ 75 mls/hr IV .[id number] [facility] Insulin Aspart (Novolog) 0 unit SC ACHS [facility] PRN Reason: Protocol Last Admin: 12/07/16 10:24 Dose: 2 unit Octreotide Acetate (Sandostatin) 100 mcg SC Q8H [facility] Last Admin: 12/07/16 04:27 Dose: 100 mcg - Labs Labs: 12/07/16 06:50 12/07/16 06:50 PT 11.4 SECONDS (9.7-12.2) 12/02/16 21:57 INR 1.0 12/02/16 21:57 APTT 37 SECONDS (21-34) H 12/02/16 21:57 - Constitutional Appears: Chronically Ill - Head Exam Head Exam: ATRAUMATIC, NORMAL INSPECTION - Eye Exam Pupil Exam: NORMAL ACCOMODATION, PERRL - ENT Exam ENT Exam: Mucous Membranes Dry - Neck Exam Neck Exam: Full ROM, Normal Inspection - Respiratory Exam Respiratory Exam: Clear to Ausculation Bilateral, NORMAL BREATHING PATTERN - Cardiovascular Exam Cardiovascular Exam: REGULAR RHYTHM, +S1, +S2 - GI/Abdominal Exam GI & Abdominal Exam: Soft Additional comments: Enterocutaneous fistula at suprapubic are. - Rectal Exam Rectal Exam: Deferred - Extremities Exam Extremities Exam: Full ROM, Normal Inspection - Back Exam Back Exam: Full ROM, NORMAL INSPECTION - Neurological Exam Neurological Exam: Alert, Awake, Oriented x3 - Psychiatric Exam Psychiatric exam: Depressed, Normal Affect - Skin Skin Exam: Dry, Intact, Normal Color, Warm Assessment and Plan (1) Sepsis Status: Acute (2) Diverticulosis of colon Status: Chronic (3) Cholecystitis with cholelithiasis Status: Ruled-out (4) Enterocutaneous fistula Status: Acute (5) Sialadenitis Status: Acute (6) Dehydration, severe Status: Acute - Assessment and Plan (Free Text) Assessment: Assessmemnt: DEhydration Sepsis. 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 Acute sialanitis with submental lymphadopathy left . Hypokalemia. NIDDM Plan: Plan: Continue IV Zosyn and Flagyl. TPN IV 0.9 NaCl with 40 Meq, K x 2 days at 75 cc /hour. Start on sips of broth today. Patient had been referred to Dr. Janes Ledbetter in [place] for transfer for this patient needs a tertiary care of a clorectal surgeon. Dr. Cid explained to patient the procedure to be done and he agreed to this. Process in progress for the tranfer next week.
[2016-12-07] MEDS: Enoxaparin 30 mg Syringe SC SCH (13:46)
--- NOTE | 2016-12-07 14:21 | CP.PCM.PN ---
Subjective - Date & Time of Evaluation Date of Evaluation: 12/07/16 Time of Evaluation: 14:18 - Subjective Subjective: No new c/o Drainage from fistula appears to be decreasing on Octreotide. Still with feculant drainage Objective - Vital Signs/Intake and Output Vital Signs (last 24 hours): Temp Pulse Resp BP Pulse Ox 97.5 F L 80 19 95/61 L 98 12/07/16 13:09 12/07/16 13:09 12/07/16 13:09 12/07/16 13:09 12/07/16 13:09 Intake and Output: 12/07/16 12/07/16 06:59 18:59 Intake Total 2105 Output Total 950 Balance 1155 - Medications Medications: Current Medications Acetaminophen (Tylenol 650 Mg Supp) 650 mg RC Q4 PRN PRN Reason: Fever >101. F Enoxaparin Sodium (Lovenox) 30 mg SC DAILY [facility] Last Admin: 12/07/16 13:46 Dose: 30 mg Metronidazole (Flagyl) 500 mg in 100 mls @ 100 mls/hr IVPB Q8 [facility] Last Admin: 12/07/16 05:14 Dose: 100 mls/hr Piperacillin Sod/Tazobactam Sod (Zosyn 2.25 Gm Iv Premix) 2.25 gm in 50 mls @ 100 mls/hr IVPB Q6H [facility] Last Admin: 12/07/16 13:41 Dose: 100 mls/hr Amino Acids (Clinimix 4.25/5 % (1000 Ml)) 1,000 mls @ 63 mls/hr IV .[id number] [facility] Stop: 12/07/16 17:59 Last Admin: 12/07/16 13:34 Dose: 63 mls/hr Multivitamins/Vitamin C 10 ml/ (Amino Acids) 1,010 mls @ 63 mls/hr IV .Q16H2M [facility] Stop: 12/08/16 10:01 Amino Acids (Clinimix 4.25/5 % (1000 Ml)) 1,000 mls @ 63 mls/hr IV .[id number] [facility] Stop: 12/08/16 17:59 Potassium Chloride 40 meq/ (Sodium Chloride) 1,020 mls @ 75 mls/hr IV .[id number] [facility] Insulin Aspart (Novolog) 0 unit SC ACHS [facility] PRN Reason: Protocol Last Admin: 12/07/16 13:48 Dose: Not Given Octreotide Acetate (Sandostatin) 100 mcg SC Q8H [facility] Last Admin: 12/07/16 04:27 Dose: 100 mcg - Labs Labs: 12/07/16 06:50 12/07/16 06:50 PT 11.4 SECONDS (9.7-12.2) 12/02/16 21:57 INR 1.0 12/02/16 21:57 APTT 37 SECONDS (21-34) H 12/02/16 21:57 - Constitutional Appears: No Acute Distress - Head Exam Head Exam: ATRAUMATIC, NORMOCEPHALIC - Eye Exam Eye Exam: EOMI, PERRL - Respiratory Exam Respiratory Exam: NORMAL BREATHING PATTERN - Cardiovascular Exam Cardiovascular Exam: REGULAR RHYTHM - GI/Abdominal Exam GI & Abdominal Exam: Tenderness, Hypoactive Bowel Sounds, Normal Bowel Sounds. absent: Mass Additional comments: fistula tract with drainage into drainage bag/device. Induration along incisional scar between fistulae. - Extremities Exam Extremities Exam: Normal Inspection Assessment and Plan (1) Weight loss Assessment & Plan: On TPN and bowel rest. Will begin sips as per surgical notes. Status: Acute (2) Diverticulosis large intestine w/o perforation or abscess w/o bleeding Status: Chronic (3) Enterocutaneous fistula Assessment & Plan: Continue TPN and Octreotide. Plan is for transfer to [place] for Dr Mcclelland next week if transfer can be facilitated. Obviously this would be deferred if fistula continues to show decreasing output and shows signs of imminent closure. Will continue to monitor output. Antibiotics per ID. Status: Acute (4) Sepsis Status: Acute
[2016-12-07] MEDS ORDERED: PPN#9 IV ONE (18:00)
[2016-12-08] MEDS: Piperacill/Tazo 2.25gm in Dex 2.25 GM/50 ML BAG IVPB SCH ×2 (00:52→04:59)
[2016-12-08] MEDS: metroNIDAZOLE IV 500 mg/100 ml 500 MG/100 ML BAG IVPB SCH ×3 (05:00→21:44)
[2016-12-08 07:29] LABS: BASO % 0.4 % (0.0-2.0); EOS # 0.2 K/uL (0.0-0.7); EOS % 3.5 % (0.0-4.0); LYMPH # 1.4 K/uL (1.0-4.3); LYMPH % 20.5 % (20.0-40.0); MEAN CELL VOLUME 94.2 fL (80.0-94.0); MEAN CORPUSCULAR HEMOGLOBIN 32.5 pg (27.0-31.0); MEAN CORPUSCULAR HGB CONC 34.5 g/dL (33.0-37.0); MEAN PLATELET VOLUME 8.2 fL (7.2-11.7); MONO # 0.5 K/uL (0.0-0.8); MONO % 6.8 % (0.0-10.0); RED CELL DISTRIBUTION WIDTH 14.2 % (11.5-14.5); WHITE BLOOD COUNT 6.6 K/uL (4.8-10.8)
--- NOTE | 2016-12-08 07:36 | CP.PCM.PN ---
Subjective - Date & Time of Evaluation Date of Evaluation: 12/08/16 Time of Evaluation: 07:30 - Subjective Subjective: Afebrile. Vital signs stablle. Patient tolerating ice chips and sips of clear liquids. Enteral outpu is decreasing but fecaloid in nature.Patient on TPN and IV fluids with K. Objective - Vital Signs/Intake and Output Vital Signs (last 24 hours): Temp Pulse Resp BP Pulse Ox 97.3 F L 77 18 100/60 98 12/08/16 00:00 12/08/16 03:14 12/08/16 00:00 12/08/16 00:00 12/08/16 00:00 Intake and Output: 12/08/16 12/08/16 06:59 18:59 Intake Total 504 Output Total 725 Balance -221 - Medications Medications: Current Medications Acetaminophen (Tylenol 650 Mg Supp) 650 mg RC Q4 PRN PRN Reason: Fever >101. F Enoxaparin Sodium (Lovenox) 30 mg SC DAILY [facility] Last Admin: 12/07/16 13:46 Dose: 30 mg Metronidazole (Flagyl) 500 mg in 100 mls @ 100 mls/hr IVPB Q8 [facility] Last Admin: 12/08/16 05:00 Dose: 100 mls/hr Piperacillin Sod/Tazobactam Sod (Zosyn 2.25 Gm Iv Premix) 2.25 gm in 50 mls @ 100 mls/hr IVPB Q6H [facility] Last Admin: 12/08/16 04:59 Dose: 100 mls/hr Multivitamins/Vitamin C 10 ml/ (Amino Acids) 1,010 mls @ 63 mls/hr IV .Q16H2M [facility] Stop: 12/08/16 10:01 Last Admin: 12/07/16 18:39 Dose: 63 mls/hr Amino Acids (Clinimix 4.25/5 % (1000 Ml)) 1,000 mls @ 63 mls/hr IV .[id number] [facility] Stop: 12/08/16 17:59 Potassium Chloride 40 meq/ (Sodium Chloride) 1,020 mls @ 75 mls/hr IV .[id number] [facility] Last Admin: 12/08/16 04:48 Dose: Not Given Insulin Aspart (Novolog) 0 unit SC ACHS [facility] PRN Reason: Protocol Last Admin: 12/07/16 22:22 Dose: Not Given Octreotide Acetate (Sandostatin) 100 mcg SC Q8H [facility] Last Admin: 12/08/16 04:49 Dose: 100 mcg - Labs Labs: 12/07/16 06:50 12/07/16 06:50 PT 11.4 SECONDS (9.7-12.2) 12/02/16 21:57 INR 1.0 12/02/16 21:57 APTT 37 SECONDS (21-34) H 12/02/16 21:57 - Constitutional Appears: Non-toxic, Cachectic, Chronically Ill - Head Exam Head Exam: ATRAUMATIC, NORMAL INSPECTION, NORMOCEPHALIC - Eye Exam Pupil Exam: NORMAL ACCOMODATION, PERRL - ENT Exam ENT Exam: Mucous Membranes Dry - Neck Exam Neck Exam: Full ROM, Normal Inspection - Respiratory Exam Respiratory Exam: Clear to Ausculation Bilateral, NORMAL BREATHING PATTERN - Cardiovascular Exam Cardiovascular Exam: Clicks, +S1, +S2 - GI/Abdominal Exam GI & Abdominal Exam: Soft - Rectal Exam Rectal Exam: Deferred - Extremities Exam Extremities Exam: Full ROM, Normal Inspection - Back Exam Back Exam: Full ROM, NORMAL INSPECTION - Neurological Exam Neurological Exam: Alert, Awake, Oriented x3 - Psychiatric Exam Psychiatric exam: Depressed, Normal Affect - Skin Skin Exam: Dry, Intact, Normal Color, Warm Assessment and Plan (1) Sepsis Status: Acute (2) Diverticulosis of colon Status: Chronic (3) Cholecystitis with cholelithiasis Status: Ruled-out (4) Enterocutaneous fistula Status: Acute (5) Sialadenitis Status: Acute (6) Dehydration, severe Status: Acute - Assessment and Plan (Free Text) Assessment: Assessment: Sepsis Chronic enterocutaneous fistula. Dehydration NIDDM. Hypokalemia Plan: Plan: Continue IV fluids and TPN Continue IV antibiotics Flagyl and Zosyn. Physical therapy. Supportive care Wound care.Plan to tranfer this patient to a tertiary hospital next week.
[2016-12-08 07:52] LABS: CHLORIDE 103 mmol/L (98-107); SODIUM 134 mmol/L (132-148)
[2016-12-08 07:53] LABS: POTASSIUM 3.2 mmol/L (3.6-5.2)
[2016-12-08 07:55] LABS: ALB/GLOB RATIO 0.7 (1.0-2.1); ALKALINE PHOSPHATASE 81 U/L (38-126); ALT/SGPT 19 U/L (21-72); AST/SGOT 35 U/L (17-59); BILIRUBIN,TOTAL 0.6 mg/dL (0.2-1.3); BLOOD UREA NITROGEN 33 mg/dL (9-20); CARBON DIOXIDE 22 mmol/L (22-30); GFR AFRICAN-AMERICAN > 60; GLUCOSE,RANDOM 138 mg/dL (75-110); TOTAL PROTEIN 5.6 g/dL (6.3-8.3)
[2016-12-08] MEDS ORDERED: PPN#10 IV SCH (10:02)
[2016-12-08] MEDS: Enoxaparin 30 mg Syringe SC SCH (10:14)
[2016-12-08] MEDS: (Novolog) Insulin Aspart, Recombinant 100 u/ml 10 ml vial SC SCH ×4 (10:15→21:47)
--- NOTE | 2016-12-08 10:26 | CP.PCM.PN ---
Subjective - Date & Time of Evaluation Date of Evaluation: 12/08/16 Time of Evaluation: 10:00 - Subjective Subjective: F/U fistula. Covering Dr King. Nurse is present Mult fistulas. Possible less drainage. On octreotide. Weight loss. Denies fever, chills, SZ, KRISHNA, cough, Cp, SOB,hemoptysis Objective - Vital Signs/Intake and Output Vital Signs (last 24 hours): Temp Pulse Resp BP Pulse Ox 97.6 F 75 18 100/61 100 12/08/16 08:22 12/08/16 08:22 12/08/16 08:22 12/08/16 08:22 12/08/16 08:22 Intake and Output: 12/08/16 12/08/16 06:59 18:59 Intake Total 504 Output Total 725 Balance -221 - Medications Medications: Current Medications Acetaminophen (Tylenol 650 Mg Supp) 650 mg RC Q4 PRN PRN Reason: Fever >101. F Enoxaparin Sodium (Lovenox) 30 mg SC DAILY [facility] Last Admin: 12/08/16 10:14 Dose: 30 mg Metronidazole (Flagyl) 500 mg in 100 mls @ 100 mls/hr IVPB Q8 [facility] Last Admin: 12/08/16 05:00 Dose: 100 mls/hr Piperacillin Sod/Tazobactam Sod (Zosyn 2.25 Gm Iv Premix) 2.25 gm in 50 mls @ 100 mls/hr IVPB Q6H [facility] Last Admin: 12/08/16 04:59 Dose: 100 mls/hr Amino Acids (Clinimix 4.25/5 % (1000 Ml)) 1,000 mls @ 63 mls/hr IV .[id number] [facility] Stop: 12/08/16 17:59 Last Admin: 12/08/16 10:05 Dose: 63 mls/hr Potassium Chloride 40 meq/ (Sodium Chloride) 1,020 mls @ 75 mls/hr IV .[id number] [facility] Last Admin: 12/08/16 04:48 Dose: Not Given Multivitamins/Vitamin C 10 ml/ (Amino Acids) 1,010 mls @ 63 mls/hr IV .Q16H2M [facility] Stop: 12/09/16 10:00 Amino Acids (Clinimix 4.25/5 % (1000 Ml)) 1,000 mls @ 63 mls/hr IV .[id number] [facility] Stop: 12/09/16 18:00 Insulin Aspart (Novolog) 0 unit SC ACHS [facility] PRN Reason: Protocol Last Admin: 12/08/16 10:15 Dose: 2 unit Octreotide Acetate (Sandostatin) 100 mcg SC Q8H [facility] Last Admin: 12/08/16 04:49 Dose: 100 mcg - Labs Labs: 12/08/16 07:13 12/08/16 07:13 PT 11.4 SECONDS (9.7-12.2) 12/02/16 21:57 INR 1.0 12/02/16 21:57 APTT 37 SECONDS (21-34) H 12/02/16 21:57 - Constitutional Appears: Non-toxic - Neck Exam Neck Exam: absent: Tenderness - Respiratory Exam Respiratory Exam: Clear to Ausculation Bilateral - Cardiovascular Exam Cardiovascular Exam: RRR - GI/Abdominal Exam GI & Abdominal Exam: Soft, Normal Bowel Sounds Additional comments: fistula drainage - Extremities Exam Extremities Exam: absent: Calf Tenderness - Neurological Exam Neurological Exam: Alert, Oriented x3 Assessment and Plan (1) Anemia Assessment & Plan: chronic Status: Acute (2) Enterocutaneous fistula Assessment & Plan: With drainage. Hopefully improving on octretide. Discussions with tertiary center. Status: Acute (3) Sepsis Status: Acute (4) Sialadenitis Status: Acute (5) Weight loss Status: Acute (6) Diverticulosis large intestine w/o perforation or abscess w/o bleeding Status: Chronic (7) Diabetes Status: Acute
--- NOTE | 2016-12-08 12:19 | CP.PCM.PN ---
Subjective - Date & Time of Evaluation Date of Evaluation: 12/08/16 Time of Evaluation: 12:19 - Subjective Subjective: AFEBRILE, NO NEW COMPLAINTS, TOLERATING IV ABX ENTEROCUTANEOUS FISTULA OUTPUT CONTINUES TO DECREASE ON OCTREOTIDE. Objective - Vital Signs/Intake and Output Vital Signs (last 24 hours): Temp Pulse Resp BP Pulse Ox 97.6 F 75 18 100/61 100 12/08/16 08:22 12/08/16 08:22 12/08/16 08:22 12/08/16 08:22 12/08/16 08:22 Intake and Output: 12/08/16 12/08/16 06:59 18:59 Intake Total 504 Output Total 725 Balance -221 - Medications Medications: Current Medications Acetaminophen (Tylenol 650 Mg Supp) 650 mg RC Q4 PRN PRN Reason: Fever >101. F Enoxaparin Sodium (Lovenox) 30 mg SC DAILY [facility] Last Admin: 12/08/16 10:14 Dose: 30 mg Metronidazole (Flagyl) 500 mg in 100 mls @ 100 mls/hr IVPB Q8 [facility] Last Admin: 12/08/16 05:00 Dose: 100 mls/hr Piperacillin Sod/Tazobactam Sod (Zosyn 2.25 Gm Iv Premix) 2.25 gm in 50 mls @ 100 mls/hr IVPB Q6H [facility] Last Admin: 12/08/16 04:59 Dose: 100 mls/hr Amino Acids (Clinimix 4.25/5 % (1000 Ml)) 1,000 mls @ 63 mls/hr IV .[id number] [facility] Stop: 12/08/16 17:59 Last Admin: 12/08/16 10:05 Dose: 63 mls/hr Potassium Chloride 40 meq/ (Sodium Chloride) 1,020 mls @ 75 mls/hr IV .[id number] [facility] Last Admin: 12/08/16 04:48 Dose: Not Given Multivitamins/Vitamin C 10 ml/ (Amino Acids) 1,010 mls @ 63 mls/hr IV .Q16H2M [facility] Stop: 12/09/16 10:00 Amino Acids (Clinimix 4.25/5 % (1000 Ml)) 1,000 mls @ 63 mls/hr IV .[id number] [facility] Stop: 12/09/16 18:00 Insulin Aspart (Novolog) 0 unit SC ACHS [facility] PRN Reason: Protocol Last Admin: 12/08/16 10:15 Dose: 2 unit Octreotide Acetate (Sandostatin) 100 mcg SC Q8H [facility] Last Admin: 12/08/16 11:07 Dose: 100 mcg - Labs Labs: 12/08/16 07:13 12/08/16 07:13 PT 11.4 SECONDS (9.7-12.2) 12/02/16 21:57 INR 1.0 12/02/16 21:57 APTT 37 SECONDS (21-34) H 12/02/16 21:57 - Constitutional Appears: No Acute Distress, Cachectic, Chronically Ill - Head Exam Head Exam: NORMAL INSPECTION - Eye Exam Eye Exam: EOMI, PERRL. absent: Scleral icterus - ENT Exam ENT Exam: Normal Oropharynx Additional comments: SWELLING FACE LT PAROTID GLAND IMPROVING - Neck Exam Neck Exam: Lymphadenopathy (+VE CERVICAL LYMPHADENOPATHY IMPROVING.) - Respiratory Exam Respiratory Exam: Decreased Breath Sounds - Cardiovascular Exam Cardiovascular Exam: REGULAR RHYTHM, +S1, +S2 - GI/Abdominal Exam GI & Abdominal Exam: Soft, Normal Bowel Sounds (+VE MULTIPLE FISTULAS SUTURE LINE DRAINAGE FEACESIN A BAG.) - Extremities Exam Extremities Exam: absent: Calf Tenderness, Pedal Edema - Neurological Exam Neurological Exam: Awake, Oriented x3 - Psychiatric Exam Psychiatric exam: Normal Mood - Skin Skin Exam: Normal Color Assessment and Plan (1) Sepsis Status: Acute (2) Cholecystitis without cholelithiasis Status: Acute (3) Sialadenitis Status: Acute (4) Enterocutaneous fistula Assessment & Plan: LABS ; BLOOD CULTURES -VE TO DATE. Urine cultures 50,000- 100,000 multiple species contaminant ABDOMINAL WOUND CULTURES + KLEIBSIELLA PNEUMONIA +VE ESBL S IMIPENEM /TYGACIL + ENTEROCOCCUS CASSELIFLAVIS - S VANCO/TYGACIL, R-AMPICILLIN DC iv zOSYN 2.25MG EVERY 6 HOURLY. START IV TYGACIL 100MG IV LD- F/U BY 12/08 CONTINUE iv fLAGYL 500 EVERY 8 HOURLYL Status: Acute (5) Anastomotic leak of intestine Status: Acute
--- NOTE | 2016-12-08 15:55 | CP.PCM.PN ---
Subjective - Date & Time of Evaluation Date of Evaluation: 12/08/16 Time of Evaluation: 07:00 - Subjective Subjective: GENERAL SURGERY PROGRESS NOTE FOR DR. MCDONNELL Patient seen and examined at bedside. He denies any abdominal pain and reports feeling better. He denies nausea or vomiting. He is tolerating ice chips. His fistula output continues to decrease on octreotide. Objective - Vital Signs/Intake and Output Vital Signs (last 24 hours): Temp Pulse Resp BP Pulse Ox 97.6 F 75 18 100/61 100 12/08/16 08:22 12/08/16 08:22 12/08/16 08:22 12/08/16 08:22 12/08/16 08:22 Intake and Output: 12/08/16 12/08/16 06:59 18:59 Intake Total 504 Output Total 725 Balance -221 - Medications Medications: Current Medications Acetaminophen (Tylenol 650 Mg Supp) 650 mg RC Q4 PRN PRN Reason: Fever >101. F Enoxaparin Sodium (Lovenox) 30 mg SC DAILY [facility] Last Admin: 12/08/16 10:14 Dose: 30 mg Metronidazole (Flagyl) 500 mg in 100 mls @ 100 mls/hr IVPB Q8 [facility] Last Admin: 12/08/16 14:00 Dose: 100 mls/hr Amino Acids (Clinimix 4.25/5 % (1000 Ml)) 1,000 mls @ 63 mls/hr IV .[id number] [facility] Stop: 12/08/16 17:59 Last Admin: 12/08/16 10:05 Dose: 63 mls/hr Potassium Chloride 40 meq/ (Sodium Chloride) 1,020 mls @ 75 mls/hr IV .[id number] [facility] Last Admin: 12/08/16 12:00 Dose: 75 mls/hr Multivitamins/Vitamin C 10 ml/ (Amino Acids) 1,010 mls @ 63 mls/hr IV .Q16H2M [facility] Stop: 12/09/16 10:00 Amino Acids (Clinimix 4.25/5 % (1000 Ml)) 1,000 mls @ 63 mls/hr IV .[id number] [facility] Stop: 12/09/16 18:00 Tigecycline 50 mg/ Sodium (Chloride) 100 mls @ 100 mls/hr IVPB Q12H [facility] Insulin Aspart (Novolog) 0 unit SC ACHS [facility] PRN Reason: Protocol Last Admin: 12/08/16 11:30 Dose: Not Given Octreotide Acetate (Sandostatin) 100 mcg SC Q8H [facility] Last Admin: 12/08/16 11:07 Dose: 100 mcg - Labs Labs: 12/08/16 07:13 12/08/16 07:13 PT 11.4 SECONDS (9.7-12.2) 12/02/16 21:57 INR 1.0 12/02/16 21:57 APTT 37 SECONDS (21-34) H 12/02/16 21:57 - Constitutional Appears: Non-toxic, No Acute Distress, Chronically Ill - Eye Exam Eye Exam: EOMI, Normal appearance - Respiratory Exam Respiratory Exam: NORMAL BREATHING PATTERN. absent: Respiratory Distress - Cardiovascular Exam Cardiovascular Exam: +S1, +S2 - GI/Abdominal Exam GI & Abdominal Exam: Soft. absent: Distended, Guarding, Tenderness Additional comments: Ostomy appliance over fistula draining into Soto bag - Neurological Exam Neurological Exam: Alert, Awake, Oriented x3 - Psychiatric Exam Psychiatric exam: Normal Affect, Normal Mood - Skin Skin Exam: Dry, Normal Color Assessment and Plan - Assessment and Plan (Free Text) Assessment: 76yo M with enterocutaneous fistula, output continues to decrease - Continue Octreotide - Output decreasing each day, 425cc output over past 24 hours - Continue to treat medically - Continue TPN - Will do trial of CLD - Continue oral care - Discussed plan with Dr. Tracie Hamilton PGY-2
[2016-12-08] MEDS ORDERED: PPN #11 IV SCH (18:00)
[2016-12-09] MEDS: metroNIDAZOLE IV 500 mg/100 ml 500 MG/100 ML BAG IVPB SCH ×3 (05:31→21:52)
[2016-12-09] MEDS: (Novolog) Insulin Aspart, Recombinant 100 u/ml 10 ml vial SC SCH ×4 (07:30→21:49)
[2016-12-09 07:57] LABS: BASO % 0.4 % (0.0-2.0); EOS # 0.2 K/uL (0.0-0.7); HEMATOCRIT 29.8 % (35.0-51.0); LYMPH # 1.9 K/uL (1.0-4.3); LYMPH % 23.1 % (20.0-40.0); MEAN CELL VOLUME 93.9 fL (80.0-94.0); MEAN CORPUSCULAR HEMOGLOBIN 32.3 pg (27.0-31.0); MEAN CORPUSCULAR HGB CONC 34.4 g/dL (33.0-37.0); MEAN PLATELET VOLUME 7.8 fL (7.2-11.7); MONO # 0.7 K/uL (0.0-0.8); NRBC % 0.1 % (0.0-2.0); RED CELL DISTRIBUTION WIDTH 14.1 % (11.5-14.5); WHITE BLOOD COUNT 8.1 K/uL (4.8-10.8)
[2016-12-09 08:02] LABS: CHLORIDE 107 mmol/L (98-107); SODIUM 136 mmol/L (132-148)
[2016-12-09 08:03] LABS: POTASSIUM 3.6 mmol/L (3.6-5.2)
[2016-12-09 08:04] LABS: BILIRUBIN,TOTAL 0.5 mg/dL (0.2-1.3); CARBON DIOXIDE 21 mmol/L (22-30); GFR AFRICAN-AMERICAN > 60
[2016-12-09 08:05] LABS: ALB/GLOB RATIO 0.7 (1.0-2.1); ALKALINE PHOSPHATASE 81 U/L (38-126); ALT/SGPT 22 U/L (21-72); AST/SGOT 25 U/L (17-59); BLOOD UREA NITROGEN 29 mg/dL (9-20); CALCIUM 7.1 mg/dl (8.6-10.4); GLUCOSE,RANDOM 100 mg/dL (75-110); TOTAL PROTEIN 5.7 g/dL (6.3-8.3)
[2016-12-09] MEDS: Enoxaparin 30 mg Syringe SC SCH (10:00)
[2016-12-09] MEDS ORDERED: PPN#12 IV SCH (10:00)
--- NOTE | 2016-12-09 10:12 | CP.PCM.PN ---
Subjective - Date & Time of Evaluation Date of Evaluation: 12/09/16 Time of Evaluation: 07:00 - Subjective Subjective: GENERAL SURGERY PROGRESS NOTE FOR DR. MCDONNELL Patient seen and examined at bedside. He denies any abdominal pain. He tolerated the CLD yesterday and denies nausea or vomiting. He remains on TPN. Objective - Vital Signs/Intake and Output Vital Signs (last 24 hours): Temp Pulse Resp BP Pulse Ox 98.0 F 79 18 115/75 100 12/09/16 08:56 12/09/16 08:56 12/09/16 08:56 12/09/16 08:56 12/09/16 08:56 Intake and Output: 12/09/16 12/09/16 06:59 18:59 Intake Total 1304 Output Total 1025 Balance 279 - Medications Medications: Current Medications Acetaminophen (Tylenol 650 Mg Supp) 650 mg RC Q4 PRN PRN Reason: Fever >101. F Enoxaparin Sodium (Lovenox) 30 mg SC DAILY [facility] Last Admin: 12/08/16 10:14 Dose: 30 mg Metronidazole (Flagyl) 500 mg in 100 mls @ 100 mls/hr IVPB Q8 [facility] Last Admin: 12/09/16 05:31 Dose: 100 mls/hr Potassium Chloride 40 meq/ (Sodium Chloride) 1,020 mls @ 75 mls/hr IV .[id number] [facility] Last Admin: 12/09/16 04:29 Dose: 75 mls/hr Amino Acids (Clinimix 4.25/5 % (1000 Ml)) 1,000 mls @ 63 mls/hr IV .[id number] [facility] Stop: 12/09/16 18:00 Tigecycline 50 mg/ Sodium (Chloride) 100 mls @ 100 mls/hr IVPB Q12H [facility] Last Admin: 12/09/16 01:57 Dose: 100 mls/hr Amino Acids (Clinimix 4.25/5 % (1000 Ml)) 1,000 mls @ 63 mls/hr IV .[id number] [facility] Stop: 12/10/16 10:00 Insulin Aspart (Novolog) 0 unit SC ACHS [facility] PRN Reason: Protocol Last Admin: 12/08/16 21:47 Dose: Not Given Octreotide Acetate (Sandostatin) 100 mcg SC Q8H [facility] Last Admin: 12/09/16 04:25 Dose: 100 mcg - Labs Labs: 12/09/16 07:24 12/09/16 07:24 PT 11.4 SECONDS (9.7-12.2) 12/02/16 21:57 INR 1.0 12/02/16 21:57 APTT 37 SECONDS (21-34) H 12/02/16 21:57 - Constitutional Appears: Non-toxic, No Acute Distress - Eye Exam Eye Exam: EOMI, Normal appearance - Respiratory Exam Respiratory Exam: NORMAL BREATHING PATTERN. absent: Respiratory Distress - Cardiovascular Exam Cardiovascular Exam: +S1, +S2 - GI/Abdominal Exam GI & Abdominal Exam: Soft. absent: Distended, Tenderness Additional comments: Ostomy device in place over fistula, attached to Soto bag - Neurological Exam Neurological Exam: Alert, Awake - Psychiatric Exam Psychiatric exam: Normal Affect, Normal Mood Assessment and Plan - Assessment and Plan (Free Text) Assessment: 76yo M with enterocutaneous fistula, output continues to decrease - Continue Octreotide - Output appears to be decreasing each day, - In computer, says 300cc output over past 24 hours (however there was 250cc output over 7am to 3pm shift yesterday so the 300 number may be lower than the actual amount) - Discussed with nurses need for strict I&Os for fistula drainage to determine if octreotide is continuing to improve the output - Continue TPN - Continue CLD - Continue oral care - Discussed plan with Dr. Tracie Hamilton PGY-2
--- NOTE | 2016-12-09 16:04 | CP.PCM.PN ---
Subjective - Date & Time of Evaluation Date of Evaluation: 12/09/16 Time of Evaluation: 04:00 - Subjective Subjective: Afgebrile. Vital sign stable. Fistula output is decreasing in amount with Octreotide q 8hours. Tolerating PO liquids. On IV Tigasil and Flsgyl. On TPN and IV fluids. Objective - Vital Signs/Intake and Output Vital Signs (last 24 hours): Temp Pulse Resp BP Pulse Ox 98.0 F 79 18 115/75 100 12/09/16 08:56 12/09/16 08:56 12/09/16 08:56 12/09/16 08:56 12/09/16 08:56 Intake and Output: 12/09/16 12/09/16 06:59 18:59 Intake Total 1304 Output Total 1025 Balance 279 - Medications Medications: Current Medications Acetaminophen (Tylenol 650 Mg Supp) 650 mg RC Q4 PRN PRN Reason: Fever >101. F Enoxaparin Sodium (Lovenox) 30 mg SC DAILY [facility] Last Admin: 12/09/16 10:00 Dose: 30 mg Metronidazole (Flagyl) 500 mg in 100 mls @ 100 mls/hr IVPB Q8 [facility] Last Admin: 12/09/16 13:25 Dose: 100 mls/hr Potassium Chloride 40 meq/ (Sodium Chloride) 1,020 mls @ 75 mls/hr IV .[id number] [facility] Last Admin: 12/09/16 04:29 Dose: 75 mls/hr Amino Acids (Clinimix 4.25/5 % (1000 Ml)) 1,000 mls @ 63 mls/hr IV .[id number] [facility] Stop: 12/09/16 18:00 Last Admin: 12/09/16 10:00 Dose: 63 mls/hr Tigecycline 50 mg/ Sodium (Chloride) 100 mls @ 100 mls/hr IVPB Q12H [facility] Last Admin: 12/09/16 13:40 Dose: 100 mls/hr Amino Acids (Clinimix 4.25/5 % (1000 Ml)) 1,000 mls @ 63 mls/hr IV .[id number] [facility] Stop: 12/10/16 10:00 Amino Acids (Clinimix 4.25/5 % (1000 Ml)) 1,000 mls @ 63 mls/hr IV .[id number] [facility] Stop: 12/10/16 18:00 Insulin Aspart (Novolog) 0 unit SC ACHS [facility] PRN Reason: Protocol Last Admin: 12/09/16 12:00 Dose: 2 unit Octreotide Acetate (Sandostatin) 100 mcg SC Q8H [facility] Last Admin: 12/09/16 12:00 Dose: 100 mcg - Labs Labs: 12/09/16 07:24 12/09/16 07:24 PT 11.4 SECONDS (9.7-12.2) 12/02/16 21:57 INR 1.0 12/02/16 21:57 APTT 37 SECONDS (21-34) H 12/02/16 21:57 - Constitutional Appears: Cachectic, Chronically Ill - Head Exam Head Exam: ATRAUMATIC, NORMAL INSPECTION, NORMOCEPHALIC - Eye Exam Eye Exam: EOMI, Normal appearance Pupil Exam: PERRL - ENT Exam ENT Exam: Mucous Membranes Dry - Neck Exam Neck Exam: Full ROM, Normal Inspection - Respiratory Exam Respiratory Exam: Clear to Ausculation Bilateral, NORMAL BREATHING PATTERN - Cardiovascular Exam Cardiovascular Exam: REGULAR RHYTHM, +S1, +S2 - GI/Abdominal Exam Additional comments: Enterostomy tube in place at suprapubic area. - Rectal Exam Rectal Exam: Deferred - Extremities Exam Extremities Exam: Full ROM, Normal Inspection - Back Exam Back Exam: Full ROM, NORMAL INSPECTION - Neurological Exam Neurological Exam: Alert, Awake, Oriented x3 - Psychiatric Exam Psychiatric exam: Depressed - Skin Skin Exam: Dry, Intact, Normal Color, Warm Assessment and Plan (1) Sepsis Status: Acute (2) Diverticulosis of colon Status: Chronic (3) Cholecystitis with cholelithiasis Status: Ruled-out (4) Enterocutaneous fistula Status: Acute (5) Sialadenitis Status: Acute (6) Dehydration, severe Status: Acute - Assessment and Plan (Free Text) Assessment: Assessment: Dehydration. Sepsis. Emterocutaneous fistula, Acute sialadenitis. Plan: Plan: Continue TPN and IV fluids Continue IV antibiotics. For transfer to [facility] next week.
[2016-12-09] MEDS ORDERED: PPN IV SCH (18:00)
[2016-12-10] MEDS: metroNIDAZOLE IV 500 mg/100 ml 500 MG/100 ML BAG IVPB SCH ×3 (05:43→21:59)
[2016-12-10] MEDS: (Novolog) Insulin Aspart, Recombinant 100 u/ml 10 ml vial SC SCH ×4 (07:30→22:00)
[2016-12-10 07:38] LABS: BASO % 0.3 % (0.0-2.0); EOS # 0.2 K/uL (0.0-0.7); EOS % 2.4 % (0.0-4.0); HEMATOCRIT 28.9 % (35.0-51.0); LYMPH # 1.5 K/uL (1.0-4.3); LYMPH % 15.4 % (20.0-40.0); MEAN CELL VOLUME 94.1 fL (80.0-94.0); MEAN CORPUSCULAR HEMOGLOBIN 32.8 pg (27.0-31.0); MEAN CORPUSCULAR HGB CONC 34.9 g/dL (33.0-37.0); MEAN PLATELET VOLUME 7.6 fL (7.2-11.7); MONO # 0.7 K/uL (0.0-0.8); MONO % 6.6 % (0.0-10.0); RED CELL DISTRIBUTION WIDTH 14.3 % (11.5-14.5); WHITE BLOOD COUNT 10.1 K/uL (4.8-10.8)
[2016-12-10 07:49] LABS: CHLORIDE 106 mmol/L (98-107); POTASSIUM 3.6 mmol/L (3.6-5.2); SODIUM 133 mmol/L (132-148)
[2016-12-10 07:51] LABS: ALB/GLOB RATIO 0.7 (1.0-2.1); ALKALINE PHOSPHATASE 71 U/L (38-126); ALT/SGPT 17 U/L (21-72); AST/SGOT 26 U/L (17-59); BILIRUBIN,TOTAL 0.5 mg/dL (0.2-1.3); BLOOD UREA NITROGEN 26 mg/dL (9-20); CARBON DIOXIDE 21 mmol/L (22-30); GFR AFRICAN-AMERICAN > 60; TOTAL PROTEIN 5.4 g/dL (6.3-8.3)
[2016-12-10 07:52] LABS: CALCIUM 7.1 mg/dl (8.6-10.4); GLUCOSE,RANDOM 111 mg/dL (75-110)
[2016-12-10] MEDS: Enoxaparin 30 mg Syringe SC SCH (10:00)
[2016-12-10] MEDS ORDERED: PPN IV SCH ×2 (10:00→18:00)
--- NOTE | 2016-12-10 11:45 | CP.PCM.PN ---
Subjective - Date & Time of Evaluation Date of Evaluation: 12/10/16 Time of Evaluation: 11:30 - Subjective Subjective: F/U fistulaCovering Dr King. Pt seen with RN. Drainage may be decreasing. Denies RB, melena, fever, chills, SZ, LOC, KRISHNA, CP, SOB, coaugh, hematuria Objective - Vital Signs/Intake and Output Vital Signs (last 24 hours): Temp Pulse Resp BP Pulse Ox 97.5 F L 99 H 20 125/74 96 12/10/16 08:21 12/10/16 08:21 12/10/16 08:21 12/10/16 08:21 12/10/16 08:21 Intake and Output: 12/10/16 12/10/16 06:59 18:59 Intake Total 150 Output Total 650 Balance -500 - Medications Medications: Current Medications Acetaminophen (Tylenol 650 Mg Supp) 650 mg RC Q4 PRN PRN Reason: Fever >101. F Enoxaparin Sodium (Lovenox) 30 mg SC DAILY [facility] Last Admin: 12/09/16 10:00 Dose: 30 mg Potassium Chloride 40 meq/ (Sodium Chloride) 1,020 mls @ 75 mls/hr IV .[id number] [facility] Last Admin: 12/09/16 21:50 Dose: 75 mls/hr Tigecycline 50 mg/ Sodium (Chloride) 100 mls @ 100 mls/hr IVPB Q12H [facility] Last Admin: 12/10/16 02:11 Dose: 100 mls/hr Amino Acids (Clinimix 4.25/5 % (1000 Ml)) 1,000 mls @ 63 mls/hr IV .[id number] [facility] Stop: 12/10/16 18:00 Metronidazole (Flagyl) 500 mg in 100 mls @ 100 mls/hr IVPB Q8 [facility] Last Admin: 12/10/16 05:43 Dose: 100 mls/hr Insulin Aspart (Novolog) 0 unit SC ACHS [facility] PRN Reason: Protocol Last Admin: 12/10/16 07:30 Dose: Not Given Octreotide Acetate (Sandostatin) 100 mcg SC Q8H [facility] Last Admin: 12/10/16 04:07 Dose: 100 mcg - Labs Labs: 12/10/16 07:07 12/10/16 07:07 PT 11.4 SECONDS (9.7-12.2) 12/02/16 21:57 INR 1.0 12/02/16 21:57 APTT 37 SECONDS (21-34) H 12/02/16 21:57 - Constitutional Appears: Well - Respiratory Exam Respiratory Exam: Clear to Ausculation Bilateral - Cardiovascular Exam Cardiovascular Exam: RRR - GI/Abdominal Exam GI & Abdominal Exam: Soft, Normal Bowel Sounds Additional comments: Fistulas Draining - Extremities Exam Extremities Exam: absent: Calf Tenderness - Neurological Exam Neurological Exam: Alert, Oriented x3 Assessment and Plan (1) Anemia Assessment & Plan: Hb stable Status: Acute (2) Enterocutaneous fistula Assessment & Plan: On Octreotide. Follow drainage. Status: Acute (3) Sepsis Status: Acute (4) Sialadenitis Status: Acute (5) Weight loss Status: Acute (6) Diverticulosis large intestine w/o perforation or abscess w/o bleeding Status: Chronic (7) Diabetes Status: Acute
--- NOTE | 2016-12-10 12:48 | CP.PCM.PN ---
Subjective - Date & Time of Evaluation Date of Evaluation: 12/10/16 Time of Evaluation: 07:00 - Subjective Subjective: GENERAL SURGERY PROGRESS NOTE FOR DR. MCDONNELL Patient seen and examined at bedside. He denies any abdominal pain. He is tolerating the CLD but states that he doesn't like the food and wants coffee. He denies nausea or vomiting. He remains on TPN. Per nurse, outputs from fistula are: 7am-3pm yesterday: 225cc 3pm-11pm yesterday: 150cc 11pm-7am today: 100 Total for past 24 hours = 475cc Objective - Vital Signs/Intake and Output Vital Signs (last 24 hours): Temp Pulse Resp BP Pulse Ox 97.5 F L 99 H 20 125/74 96 12/10/16 08:21 12/10/16 08:21 12/10/16 08:21 12/10/16 08:21 12/10/16 08:21 Intake and Output: 12/10/16 12/10/16 06:59 18:59 Intake Total 150 Output Total 650 Balance -500 - Medications Medications: Current Medications Acetaminophen (Tylenol 650 Mg Supp) 650 mg RC Q4 PRN PRN Reason: Fever >101. F Enoxaparin Sodium (Lovenox) 30 mg SC DAILY [facility] TO [facility] Last Admin: 12/09/16 10:00 Dose: 30 mg Tigecycline 50 mg/ Sodium (Chloride) 100 mls @ 100 mls/hr IVPB Q12H [facility] Last Admin: 12/10/16 02:11 Dose: 100 mls/hr Amino Acids (Clinimix 4.25/5 % (1000 Ml)) 1,000 mls @ 63 mls/hr IV .[id number] [facility] Stop: 12/10/16 18:00 Metronidazole (Flagyl) 500 mg in 100 mls @ 100 mls/hr IVPB Q8 [facility] Last Admin: 12/10/16 05:43 Dose: 100 mls/hr Insulin Aspart (Novolog) 0 unit SC ACHS [facility] PRN Reason: Protocol Last Admin: 12/10/16 07:30 Dose: Not Given Octreotide Acetate (Sandostatin) 100 mcg SC Q8H [facility] Last Admin: 12/10/16 12:00 Dose: 100 mcg - Labs Labs: 12/10/16 07:07 12/10/16 07:07 PT 11.4 SECONDS (9.7-12.2) 12/02/16 21:57 INR 1.0 12/02/16 21:57 APTT 37 SECONDS (21-34) H 12/02/16 21:57 - Constitutional Appears: Non-toxic, No Acute Distress - Head Exam Head Exam: ATRAUMATIC, NORMAL INSPECTION - Eye Exam Eye Exam: EOMI, Normal appearance - Respiratory Exam Respiratory Exam: NORMAL BREATHING PATTERN. absent: Respiratory Distress - Cardiovascular Exam Cardiovascular Exam: +S1, +S2 - GI/Abdominal Exam GI & Abdominal Exam: Soft. absent: Distended, Firm, Guarding, Rigid, Tenderness Additional comments: Ostomy device in place over fistula, attached to Soto bag 475cc output over past 24 hours - Neurological Exam Neurological Exam: Alert, Awake, Oriented x3 Assessment and Plan - Assessment and Plan (Free Text) Assessment: 76yo M with enterocutaneous fistula, output continues to decrease - Continue Octreotide - Output has decreased from 2L per day to now 475cc over past 24 hours - Per Dr. Woods's note, plan is for transfer to [facility] next week - Continue TPN - Continue CLD - Continue oral care - Discussed plan with Dr. Tracie Hamilton PGY-2
--- NOTE | 2016-12-10 13:56 | CP.PCM.PN ---
Subjective - Date & Time of Evaluation Date of Evaluation: 12/10/16 Time of Evaluation: 13:56 - Subjective Subjective: afebrile. tolerating CLD ON TPN DENIES ABDOMINAL PAIN. ENTEROCUTANEOUS FISTULA DRAINAGE DECREASING NOTED. SURGICAL FOLLOW-UP NOTED. Objective - Vital Signs/Intake and Output Vital Signs (last 24 hours): Temp Pulse Resp BP Pulse Ox 97.5 F L 99 H 20 125/74 96 12/10/16 08:21 12/10/16 08:21 12/10/16 08:21 12/10/16 08:21 12/10/16 08:21 Intake and Output: 12/10/16 12/10/16 06:59 18:59 Intake Total 150 Output Total 650 Balance -500 - Medications Medications: Current Medications Acetaminophen (Tylenol 650 Mg Supp) 650 mg RC Q4 PRN PRN Reason: Fever >101. F Enoxaparin Sodium (Lovenox) 30 mg SC DAILY REPLACED BY [facility] Last Admin: 12/10/16 10:00 Dose: 30 mg Tigecycline 50 mg/ Sodium (Chloride) 100 mls @ 100 mls/hr IVPB Q12H REPLACED BY [facility] Last Admin: 12/10/16 02:11 Dose: 100 mls/hr Amino Acids (Clinimix 4.25/5 % (1000 Ml)) 1,000 mls @ 63 mls/hr IV .[id number] REPLACED BY [facility] Stop: 12/10/16 18:00 Last Admin: 12/10/16 10:00 Dose: 63 mls/hr Metronidazole (Flagyl) 500 mg in 100 mls @ 100 mls/hr IVPB Q8 REPLACED BY [facility] Last Admin: 12/10/16 13:45 Dose: 100 mls/hr Insulin Aspart (Novolog) 0 unit SC ACHS [facility] PRN Reason: Protocol Last Admin: 12/10/16 12:00 Dose: 2 unit Octreotide Acetate (Sandostatin) 100 mcg SC Q8H REPLACED BY [facility] Last Admin: 12/10/16 12:00 Dose: 100 mcg - Labs Labs: 12/10/16 07:07 12/10/16 07:07 PT 11.4 SECONDS (9.7-12.2) 12/02/16 21:57 INR 1.0 12/02/16 21:57 APTT 37 SECONDS (21-34) H 12/02/16 21:57 - Constitutional Appears: No Acute Distress, Chronically Ill - Head Exam Head Exam: NORMAL INSPECTION - Eye Exam Eye Exam: EOMI, PERRL, Scleral icterus - ENT Exam ENT Exam: Normal Oropharynx - Neck Exam Neck Exam: Normal Inspection - Respiratory Exam Respiratory Exam: Clear to Ausculation Bilateral - Cardiovascular Exam Cardiovascular Exam: REGULAR RHYTHM, +S1, +S2 - GI/Abdominal Exam GI & Abdominal Exam: Soft, Normal Bowel Sounds (MIDLINES ENTEROCUTANEOUS FISTULA WITH DRAINAGE INTO THE BAG MAINLY FECES.) Additional comments: Ostomy device in place over fistula, attached to Soto bag 475cc output over past 24 hours - Extremities Exam Extremities Exam: absent: Calf Tenderness, Pedal Edema - Neurological Exam Neurological Exam: Awake, Oriented x3 - Psychiatric Exam Psychiatric exam: Normal Mood - Skin Skin Exam: Normal Color, Warm Assessment and Plan (1) Sepsis Assessment & Plan: BLOOD CULTURES NEGATIVE TO DATE. eNTEROCUTANEOUS FISTULA DRAINAGE ; MULTIPLE GRAM-NEGATIVE AND GRAM-POSITIVE ORGANISMS Status: Acute (2) Cholecystitis without cholelithiasis Status: Acute (3) Sialadenitis Assessment & Plan: IMPROVING. oRAL HYGIENE. iCE CHIPS AND HARD CANDY TO SUCK. Status: Acute (4) Enterocutaneous fistula Assessment & Plan: LABS REVIEWED;12/10/16 wbc 10.1 H/H 10.1, PLT 296. RENAL FUNCTIONS STABLE LFTS-N NORMAL ON IV TYGACIL 100MG IV LD- F/U BY 12/08 CONTINUE iv fLAGYL 500 EVERY 8 HOURLY. OSTOMY SITE DRAINAGE IS DECREASING ON OCTREOTIDE. CONTINUE PER SURGICAL TEAM. PATIENT FOR POSSIBLE TRANSFER TO [facility]. Status: Acute (5) Anastomotic leak of intestine Status: Acute
--- NOTE | 2016-12-10 16:08 | CP.PCM.PN ---
Subjective - Date & Time of Evaluation Date of Evaluation: 12/10/16 Time of Evaluation: 04:05 - Subjective Subjective: Afebrile. Patient tolerating fluids PO. Fistular output has a total pof 450 cc yesterday. On TPN and NACL infusion. Objective - Vital Signs/Intake and Output Vital Signs (last 24 hours): Temp Pulse Resp BP Pulse Ox 97.5 F L 99 H 20 125/74 96 12/10/16 08:21 12/10/16 08:21 12/10/16 08:21 12/10/16 08:21 12/10/16 08:21 Intake and Output: 12/10/16 12/10/16 06:59 18:59 Intake Total 150 Output Total 650 Balance -500 - Medications Medications: Current Medications Acetaminophen (Tylenol 650 Mg Supp) 650 mg RC Q4 PRN PRN Reason: Fever >101. F Enoxaparin Sodium (Lovenox) 30 mg SC DAILY [facility] Last Admin: 12/10/16 10:00 Dose: 30 mg Tigecycline 50 mg/ Sodium (Chloride) 100 mls @ 100 mls/hr IVPB Q12H [facility] Last Admin: 12/10/16 14:00 Dose: 100 mls/hr Amino Acids (Clinimix 4.25/5 % (1000 Ml)) 1,000 mls @ 63 mls/hr IV .[id number] [facility] Stop: 12/10/16 18:00 Last Admin: 12/10/16 10:00 Dose: 63 mls/hr Metronidazole (Flagyl) 500 mg in 100 mls @ 100 mls/hr IVPB Q8 [facility] Last Admin: 12/10/16 13:45 Dose: 100 mls/hr Insulin Aspart (Novolog) 0 unit SC ACHS [facility] PRN Reason: Protocol Last Admin: 12/10/16 12:00 Dose: 2 unit Octreotide Acetate (Sandostatin) 100 mcg SC Q8H [facility] Last Admin: 12/10/16 12:00 Dose: 100 mcg - Labs Labs: 12/10/16 07:07 12/10/16 07:07 PT 11.4 SECONDS (9.7-12.2) 12/02/16 21:57 INR 1.0 12/02/16 21:57 APTT 37 SECONDS (21-34) H 12/02/16 21:57 - Eye Exam Pupil Exam: PERRL - ENT Exam ENT Exam: Normal External Ear Exam - Neck Exam Neck Exam: Full ROM, Normal Inspection - Respiratory Exam Respiratory Exam: Clear to Ausculation Bilateral, NORMAL BREATHING PATTERN - Cardiovascular Exam Cardiovascular Exam: REGULAR RHYTHM, +S1, +S2 - GI/Abdominal Exam GI & Abdominal Exam: Soft - Rectal Exam Rectal Exam: Deferred - Extremities Exam Extremities Exam: Full ROM - Back Exam Back Exam: NORMAL INSPECTION - Neurological Exam Neurological Exam: Alert, Awake, Oriented x3 - Psychiatric Exam Psychiatric exam: Depressed, Normal Affect - Skin Skin Exam: Dry, Intact, Normal Color Assessment and Plan (1) Sepsis Status: Acute (2) Diverticulosis of colon Status: Chronic (3) Cholecystitis with cholelithiasis Status: Ruled-out (4) Enterocutaneous fistula Status: Acute (5) Sialadenitis Status: Acute (6) Dehydration, severe Status: Acute - Assessment and Plan (Free Text) Assessment: Assessment: Dehydration Chronic enterocutaneous fistula Acute sialadenitis Sepsis NIDDM Naldo weight loss. Plan: Plan; Continue IV antibiotics Continue TPN and Nacl infusion. Supportive care. Liquids PO.
[2016-12-11] MEDS: metroNIDAZOLE IV 500 mg/100 ml 500 MG/100 ML BAG IVPB SCH ×3 (05:23→22:07)
[2016-12-11] MEDS: (Novolog) Insulin Aspart, Recombinant 100 u/ml 10 ml vial SC SCH ×4 (07:30→22:08)
--- NOTE | 2016-12-11 08:59 | CP.PCM.PN ---
Subjective - Date & Time of Evaluation Date of Evaluation: 12/11/16 Time of Evaluation: 08:57 - Subjective Subjective: Surgery: Dr. Gil Pt seen and examined. Resting comfortably in bed. Per nursing no acute events over night. Pt fistula output has been steadily decreasing while on octreotide. Pt has no complaints Objective - Vital Signs/Intake and Output Vital Signs (last 24 hours): Temp Pulse Resp BP Pulse Ox 98.1 F 83 20 110/65 99 12/11/16 07:41 12/11/16 07:41 12/11/16 07:41 12/11/16 07:41 12/11/16 07:41 Intake and Output: 12/11/16 12/11/16 06:59 18:59 Intake Total 1858 Output Total 1125 Balance 733 - Medications Medications: Current Medications Acetaminophen (Tylenol 650 Mg Supp) 650 mg RC Q4 PRN PRN Reason: Fever >101. F Enoxaparin Sodium (Lovenox) 30 mg SC DAILY [facility] Last Admin: 12/10/16 10:00 Dose: 30 mg Tigecycline 50 mg/ Sodium (Chloride) 100 mls @ 100 mls/hr IVPB Q12H [facility] Last Admin: 12/11/16 02:33 Dose: 100 mls/hr Metronidazole (Flagyl) 500 mg in 100 mls @ 100 mls/hr IVPB Q8 [facility] Last Admin: 12/11/16 05:23 Dose: 100 mls/hr Potassium Chloride 40 meq/ (Sodium Chloride) 1,020 mls @ 75 mls/hr IV .[id number] [facility] Last Admin: 12/10/16 18:22 Dose: 75 mls/hr Multivitamins/Vitamin C 10 ml/ (Amino Acids) 1,010 mls @ 63 mls/hr IV .[id number] [facility] Stop: 12/11/16 10:00 Last Admin: 12/10/16 18:23 Dose: 63 mls/hr Amino Acids (Clinimix 4.25/5 % (1000 Ml)) 1,000 mls @ 63 mls/hr IV .[id number] [facility] Stop: 12/11/16 18:00 Fat Emulsion Intravenous (Intralipid 20%) 500 mls @ 42 mls/hr IV TuTa [facility] Insulin Aspart (Novolog) 0 unit SC ACHS [facility] PRN Reason: Protocol Last Admin: 12/10/16 22:00 Dose: Not Given Octreotide Acetate (Sandostatin) 100 mcg SC Q8H [facility] Last Admin: 12/11/16 04:43 Dose: 100 mcg - Labs Labs: 12/10/16 07:07 12/10/16 07:07 PT 11.4 SECONDS (9.7-12.2) 12/02/16 21:57 INR 1.0 12/02/16 21:57 APTT 37 SECONDS (21-34) H 12/02/16 21:57 - Constitutional Appears: Non-toxic, No Acute Distress - Eye Exam Eye Exam: EOMI - ENT Exam ENT Exam: Mucous Membranes Moist - Respiratory Exam Respiratory Exam: NORMAL BREATHING PATTERN. absent: Accessory Muscle Use, Respiratory Distress - GI/Abdominal Exam GI & Abdominal Exam: Soft. absent: Distended, Firm, Guarding, Rigid, Tenderness Additional comments: fistula w. loose brown stool in bag - Neurological Exam Neurological Exam: Alert, Awake, Oriented x3 Assessment and Plan - Assessment and Plan (Free Text) Assessment: 76yo M with enterocutaneous fistula - Fistula 275cc/24hr - Continue Octreotide - Continue TPN - Continue CLD - Continue oral care - for possible tansfer to [place] this week -will continue to follow -d/w attheding [employer] PGY2
--- NOTE | 2016-12-11 09:28 | CP.PCM.PN ---
Subjective - Date & Time of Evaluation Date of Evaluation: 12/11/16 Time of Evaluation: 09:25 - Subjective Subjective: Events of weekend noted Continued decrease in fistula output noted Objective - Vital Signs/Intake and Output Vital Signs (last 24 hours): Temp Pulse Resp BP Pulse Ox 98.1 F 83 20 110/65 99 12/11/16 07:41 12/11/16 07:41 12/11/16 07:41 12/11/16 07:41 12/11/16 07:41 Intake and Output: 12/11/16 12/11/16 06:59 18:59 Intake Total 1858 Output Total 1125 Balance 733 - Medications Medications: Current Medications Acetaminophen (Tylenol 650 Mg Supp) 650 mg RC Q4 PRN PRN Reason: Fever >101. F Enoxaparin Sodium (Lovenox) 30 mg SC DAILY [facility] Last Admin: 12/10/16 10:00 Dose: 30 mg Tigecycline 50 mg/ Sodium (Chloride) 100 mls @ 100 mls/hr IVPB Q12H [facility] Last Admin: 12/11/16 02:33 Dose: 100 mls/hr Metronidazole (Flagyl) 500 mg in 100 mls @ 100 mls/hr IVPB Q8 [facility] Last Admin: 12/11/16 05:23 Dose: 100 mls/hr Potassium Chloride 40 meq/ (Sodium Chloride) 1,020 mls @ 75 mls/hr IV .[id number] [facility] Last Admin: 12/10/16 18:22 Dose: 75 mls/hr Multivitamins/Vitamin C 10 ml/ (Amino Acids) 1,010 mls @ 63 mls/hr IV .Q16H2M [facility] Stop: 12/11/16 10:00 Last Admin: 12/10/16 18:23 Dose: 63 mls/hr Amino Acids (Clinimix 4.25/5 % (1000 Ml)) 1,000 mls @ 63 mls/hr IV .[id number] [facility] Stop: 12/11/16 18:00 Fat Emulsion Intravenous (Intralipid 20%) 500 mls @ 42 mls/hr IV TuTa [facility] Insulin Aspart (Novolog) 0 unit SC ACHS [facility] PRN Reason: Protocol Last Admin: 12/10/16 22:00 Dose: Not Given Octreotide Acetate (Sandostatin) 100 mcg SC Q8H [facility] Last Admin: 12/11/16 04:43 Dose: 100 mcg - Labs Labs: 12/10/16 07:07 12/10/16 07:07 PT 11.4 SECONDS (9.7-12.2) 12/02/16 21:57 INR 1.0 12/02/16 21:57 APTT 37 SECONDS (21-34) H 12/02/16 21:57 - Constitutional Appears: No Acute Distress - Head Exam Head Exam: ATRAUMATIC, NORMOCEPHALIC - Eye Exam Eye Exam: EOMI, PERRL - Respiratory Exam Respiratory Exam: NORMAL BREATHING PATTERN - Cardiovascular Exam Cardiovascular Exam: REGULAR RHYTHM - GI/Abdominal Exam GI & Abdominal Exam: Soft, Normal Bowel Sounds. absent: Tenderness Additional comments: stool draining from fistula in superior and inferior areas of incision, induration somewhat reduced. - Extremities Exam Extremities Exam: Normal Inspection Assessment and Plan (1) Weight loss Status: Acute (2) Diverticulosis large intestine w/o perforation or abscess w/o bleeding Status: Chronic (3) Enterocutaneous fistula Assessment & Plan: Transfer to [place] is ONLY to be facilitated for failure or current therapy and need for diverting ileostomy as next stage of care. Decrease in output on Octreotide may alter need for transfer. Will need surgical team and Dr Woods to assess goals and end point for current therapy. It would be preferrable if diversion could be avoided. Status: Acute (4) Sepsis Status: Resolved
[2016-12-11] MEDS ORDERED: PPN IV SCH (10:00)
[2016-12-11] MEDS: Enoxaparin 30 mg Syringe SC SCH (10:00)
--- NOTE | 2016-12-11 11:24 | CP.PCM.PN ---
Subjective - Date & Time of Evaluation Date of Evaluation: 12/11/16 Time of Evaluation: 11:30 - Subjective Subjective: Patient is afebrile. Vital signs stable. Output is getting smaller. Dr. Hodges and I discussed the need for a definitive treament for this patient. He had vinita in and out of the hospital sine August. need for a colorectal surgeon is imperative for him .Patient had agreed to this and the sister is agreable to this tranfer. Objective - Vital Signs/Intake and Output Vital Signs (last 24 hours): Temp Pulse Resp BP Pulse Ox 98.1 F 83 20 110/65 99 12/11/16 07:41 12/11/16 07:41 12/11/16 07:41 12/11/16 07:41 12/11/16 07:41 Intake and Output: 12/11/16 12/11/16 06:59 18:59 Intake Total 1858 Output Total 1125 Balance 733 - Medications Medications: Current Medications Acetaminophen (Tylenol 650 Mg Supp) 650 mg RC Q4 PRN PRN Reason: Fever >101. F Enoxaparin Sodium (Lovenox) 30 mg SC DAILY [facility] Last Admin: 12/10/16 10:00 Dose: 30 mg Tigecycline 50 mg/ Sodium (Chloride) 100 mls @ 100 mls/hr IVPB Q12H [facility] Last Admin: 12/11/16 02:33 Dose: 100 mls/hr Metronidazole (Flagyl) 500 mg in 100 mls @ 100 mls/hr IVPB Q8 [facility] Last Admin: 12/11/16 05:23 Dose: 100 mls/hr Potassium Chloride 40 meq/ (Sodium Chloride) 1,020 mls @ 75 mls/hr IV .[id number] [facility] Last Admin: 12/10/16 18:22 Dose: 75 mls/hr Amino Acids (Clinimix 4.25/5 % (1000 Ml)) 1,000 mls @ 63 mls/hr IV .[id number] [facility] Stop: 12/11/16 18:00 Fat Emulsion Intravenous (Intralipid 20%) 500 mls @ 42 mls/hr IV TuThSa [facility] Multivitamins/Vitamin C 10 ml/ (Amino Acids) 1,010 mls @ 63 mls/hr IV .Q16H2M [facility] Stop: 12/12/16 10:01 Amino Acids (Clinimix 4.25/5 % (1000 Ml)) 1,000 mls @ 63 mls/hr IV .[id number] [facility] Stop: 12/13/16 01:52 Insulin Aspart (Novolog) 0 unit SC ACHS [facility] PRN Reason: Protocol Last Admin: 12/10/16 22:00 Dose: Not Given Octreotide Acetate (Sandostatin) 100 mcg SC Q8H [facility] Last Admin: 12/11/16 04:43 Dose: 100 mcg - Labs Labs: 12/10/16 07:07 12/10/16 07:07 PT 11.4 SECONDS (9.7-12.2) 12/02/16 21:57 INR 1.0 12/02/16 21:57 APTT 37 SECONDS (21-34) H 12/02/16 21:57 - Constitutional Appears: Non-toxic, Cachectic, Chronically Ill - Head Exam Head Exam: ATRAUMATIC, NORMAL INSPECTION, NORMOCEPHALIC - Eye Exam Pupil Exam: NORMAL ACCOMODATION, PERRL - ENT Exam ENT Exam: Mucous Membranes Moist - Neck Exam Neck Exam: Full ROM - Respiratory Exam Respiratory Exam: Clear to Ausculation Bilateral, NORMAL BREATHING PATTERN - Cardiovascular Exam Cardiovascular Exam: +S1, +S2 - GI/Abdominal Exam GI & Abdominal Exam: Soft - Rectal Exam Rectal Exam: Deferred - Neurological Exam Neurological Exam: Alert, Awake, Oriented x3 - Psychiatric Exam Psychiatric exam: Depressed, Normal Affect - Skin Skin Exam: Dry, Intact, Normal Color, Warm Assessment and Plan (1) Sepsis Status: Resolved (2) Diverticulosis of colon Status: Chronic (3) Cholecystitis with cholelithiasis Status: Ruled-out (4) Enterocutaneous fistula Status: Chronic (5) Sialadenitis Status: Resolved (6) Dehydration, severe Status: Acute - Assessment and Plan (Free Text) Plan: Plan : Continue IV Tygasil and Flagyl. Continue TPN nad )9nacl infusion. Clear fluids PO. Tranfer to [facility] when bed is available.
--- NOTE | 2016-12-11 11:42 | CP.PCM.HP ---
History of Present Illness - History of Present Illness History of Present Illness: pateint was admitted to the hos[ital with dehydration Sepsis, and a chronic enterocutaneous fistula, Patient had colostomy reversion, but the anastomosis leaked, and since then had another surgery. An enterocutaneous fistula developed and since then had been on TPN. Patient was admitted with fever, dehydration and acute sialadenitis of the left parotid and submental lymph nodes on the left/\. patient was given IV Antibiotcs consisting of Zosyn and Flagyl. Fever and leucocytosis suabsided . He was also on IV 0.9 nacl. Initaily the fistular output was 2000 cc per 24 hours and with Octreotoide q 8 hours the outp[ut subsided. Despite this the patient definitely needs a colorectal surgeon to definitely take care of the problem. This [facility] not have one and Dr. King contacted Dr. Ledbetter in [facility] who graciously admitted the patient to be under his care. Patient and family are agreable to this plan. Present on Admission - Present on Admission Any Indicators Present on Admission: No Review of Systems - Constitutional Constitutional: As Per HPI, Weight Loss Past Patient History - Infectious Disease Hx of Infectious Diseases: None - Tetanus Immunizations Tetanus Immunization: Unknown - Past Medical History & Family History Past Medical History?: Yes - Past Social History Smoking Status: Never Smoked Chewing Tobacco Use: No Cigar Use: No Alcohol: None Drugs: Denies Home Situation {Lives}: With Family - CARDIAC Hx Hypercholesterolemia: Yes Hx Hypertension: Yes - PULMONARY Hx Respiratory Disorders: No - NEUROLOGICAL Hx Neurological Disorder: No - HEENT Hx HEENT Problems: Yes Hx Cataracts: Yes - RENAL Hx Kidney Stones: Yes (required left nephrostomy Dr Beckwith 2013) - ENDOCRINE/METABOLIC Hx Diabetes Mellitus Type 2: Yes - HEMATOLOGICAL/ONCOLOGICAL Hx Blood Disorders: No - INTEGUMENTARY Hx Dermatological Problems: No (dry skin) - MUSCULOSKELETAL/RHEUMATOLOGICAL Hx Falls: Yes - GASTROINTESTINAL Hx Gastrointestinal Disorders: Yes Hx Bowel Surgery: Yes Hx Diverticulitis: Yes Other/Comment: persistent enterocutaneous fistula. - GENITOURINARY/GYNECOLOGICAL Hx Genitourinary Disorders: Yes Other/Comment: left ureteral stone. - PSYCHIATRIC Hx Psychophysiologic Disorder: No Hx Substance Use: No - SURGICAL HISTORY Hx Surgeries: Yes Other/Comment: Partial left hemicolectomy. - ANESTHESIA Hx Anesthesia: Yes Hx Anesthesia Reactions: No Hx Malignant Hyperthermia: No Meds Allergies/Adverse Reactions: Allergies Allergy/AdvReac Type Severity Reaction Status Date / Time No Known Allergies Allergy Verified 12/02/16 21:23 Physical Exam - Constitutional Appears: Cachectic, Chronically Ill Results - Vital Signs Recent Vital Signs: Last Vital Signs Temp 98.1 F 12/11/16 07:41 Pulse 83 12/11/16 07:41 Resp 20 12/11/16 07:41 BP 110/65 12/11/16 07:41 Pulse Ox 99 12/11/16 07:41 - Labs Result Diagrams: 12/10/16 07:07 12/10/16 07:07 Labs: Laboratory Results - last 24 hr 12/10/16 12/10/16 12/10/16 11:23 16:10 16:27 POC Glucose (mg/dL) 183 H 60 L 69 12/10/16 12/11/16 21:10 06:12 POC Glucose (mg/dL) 145 H 154 H Assessment & Plan (1) Sepsis Status: Resolved (2) Diverticulosis of colon Status: Chronic (3) Cholecystitis with cholelithiasis Status: Ruled-out Priority: High (4) Enterocutaneous fistula Status: Chronic (5) Sialadenitis Status: Resolved (6) Dehydration, severe Status: Acute - Date & Time Date: 12/04/16 Time: 11:40
[2016-12-11] MEDS ORDERED: PPN IV ONE (18:00)
[2016-12-11] MEDS: Fat Emulsion 20% IV 500 ML IV SCH (18:11)
--- NOTE | 2016-12-11 22:23 | CP.PCM.PN ---
Subjective - Date & Time of Evaluation Date of Evaluation: 12/11/16 Time of Evaluation: 22:23 - Subjective Subjective: afebrile. ON TPN C/O ABDOMINAL PAIN. ENTEROCUTANEOUS FISTULA DRAINAGE DECREASING NOTED. GI AND SURGICAL FOLLOW-UP NOTED.. Objective - Vital Signs/Intake and Output Vital Signs (last 24 hours): Temp Pulse Resp BP Pulse Ox 97.5 F L 90 20 127/56 L 100 12/11/16 15:00 12/11/16 15:00 12/11/16 15:00 12/11/16 15:00 12/11/16 15:00 - Medications Medications: Current Medications Acetaminophen (Tylenol 650 Mg Supp) 650 mg RC Q4 PRN PRN Reason: Fever >101. F Enoxaparin Sodium (Lovenox) 30 mg SC DAILY [facility] Last Admin: 12/11/16 10:00 Dose: 30 mg Tigecycline 50 mg/ Sodium (Chloride) 100 mls @ 100 mls/hr IVPB Q12H [facility] Last Admin: 12/11/16 14:20 Dose: 100 mls/hr Metronidazole (Flagyl) 500 mg in 100 mls @ 100 mls/hr IVPB Q8 [facility] Last Admin: 12/11/16 22:07 Dose: 100 mls/hr Potassium Chloride 40 meq/ (Sodium Chloride) 1,020 mls @ 75 mls/hr IV .[id number] [facility] Last Admin: 12/11/16 11:00 Dose: 75 mls/hr Fat Emulsion Intravenous (Intralipid 20%) 500 mls @ 42 mls/hr IV TuThSa [facility] Last Admin: 12/11/16 18:11 Dose: 42 mls/hr Multivitamins/Vitamin C 10 ml/ (Amino Acids) 1,010 mls @ 63 mls/hr IV .[id number] ONE Stop: 12/12/16 10:01 Last Admin: 12/11/16 18:12 Dose: 63 mls/hr Amino Acids (Clinimix 4.25/5 % (1000 Ml)) 1,000 mls @ 63 mls/hr IV .[id number] ONE Stop: 12/13/16 01:52 Insulin Aspart (Novolog) 0 unit SC ACHS [facility] PRN Reason: Protocol Last Admin: 12/11/16 22:08 Dose: Not Given Ketorolac Tromethamine (Toradol) 10 mg PO Q4H PRN PRN Reason: abdominal pain Last Admin: 12/11/16 18:09 Dose: 10 mg Octreotide Acetate (Sandostatin) 100 mcg SC Q8H [facility] Last Admin: 12/11/16 21:00 Dose: 100 mcg - Labs Labs: 12/10/16 07:07 12/10/16 07:07 PT 11.4 SECONDS (9.7-12.2) 12/02/16 21:57 INR 1.0 12/02/16 21:57 APTT 37 SECONDS (21-34) H 12/02/16 21:57 - Constitutional Appears: No Acute Distress, Cachectic, Chronically Ill - Head Exam Head Exam: NORMAL INSPECTION, NORMOCEPHALIC - Eye Exam Eye Exam: EOMI, PERRL - ENT Exam ENT Exam: Normal Oropharynx - Neck Exam Neck Exam: Normal Inspection - Respiratory Exam Respiratory Exam: Decreased Breath Sounds - Cardiovascular Exam Cardiovascular Exam: REGULAR RHYTHM, +S1, +S2 - GI/Abdominal Exam GI & Abdominal Exam: Soft, Tenderness (MILD TENDERNESS AROUND THE SUTURE SITE AND ENTEROCUTANEOUS FISTULA. dRAINAGE FECALITH BY OSTOMY BAG.) - Extremities Exam Extremities Exam: Pedal Edema. absent: Calf Tenderness - Neurological Exam Neurological Exam: Awake, CN II-XII Intact, Oriented x3, Reflexes Normal - Psychiatric Exam Psychiatric exam: Normal Mood - Skin Skin Exam: Normal Color, Warm Assessment and Plan (1) Sepsis Assessment & Plan: BLOOD CULTURES NEGATIVE TO DATE. ENTEROCUTANEOUS FISTULA DRAINAGE ; MULTIPLE GRAM-NEGATIVE AND GRAM-POSITIVE ORGANISMS E. COLI AND ENTEROCOCCUS -CASSELFLAVIS Status: Resolved (2) Cholecystitis without cholelithiasis Status: Acute (3) Sialadenitis Status: Resolved (4) Enterocutaneous fistula Assessment & Plan: ON IV TYGACIL 100MG IV LD-12/08 F/U BY TYGACIL 50MG IV [id number]. CONTINUE iv fLAGYL 500 EVERY 8 HOURLY. OSTOMY SITE DRAINAGE IS DECREASING ON OCTREOTIDE. CONTINUE PER SURGICAL TEAM. PATIENT FOR POSSIBLE TRANSFER TO [facility]. Status: Chronic (5) Anastomotic leak of intestine Status: Acute
[2016-12-12] MEDS: metroNIDAZOLE IV 500 mg/100 ml 500 MG/100 ML BAG IVPB SCH ×3 (06:08→22:01)
[2016-12-12] MEDS: (Novolog) Insulin Aspart, Recombinant 100 u/ml 10 ml vial SC SCH ×4 (07:30→22:02)
[2016-12-12] MEDS: Enoxaparin 30 mg Syringe SC SCH (10:00)
[2016-12-12] MEDS ORDERED: PPN IV ONE ×2 (10:00→18:00)
--- NOTE | 2016-12-12 10:11 | CP.PCM.PN ---
Subjective - Date & Time of Evaluation Date of Evaluation: 12/12/16 Time of Evaluation: 10:07 - Subjective Subjective: Drainage decreasing Case discussed with Dr Ledbetter who agrees with waiting to see if drainage stops and allow fistula to mature. This may obviate need for diversion and allow direct resection. Will plan for transfer or admission if condition deteriorates or in a couple of weeks for further surgical management. He does not think the drainage is likely to stop completely. Objective - Vital Signs/Intake and Output Vital Signs (last 24 hours): Temp Pulse Resp BP Pulse Ox 98.1 F 120 H 18 124/75 99 12/12/16 08:31 12/12/16 08:31 12/12/16 08:31 12/12/16 08:31 12/12/16 08:31 Intake and Output: 12/12/16 12/12/16 06:59 18:59 Intake Total 2339 Output Total 860 Balance 1479 - Medications Medications: Current Medications Acetaminophen (Tylenol 650 Mg Supp) 650 mg RC Q4 PRN PRN Reason: Fever >101. F Enoxaparin Sodium (Lovenox) 30 mg SC DAILY [facility] Last Admin: 12/11/16 10:00 Dose: 30 mg Tigecycline 50 mg/ Sodium (Chloride) 100 mls @ 100 mls/hr IVPB Q12H [facility] Last Admin: 12/12/16 02:58 Dose: 100 mls/hr Metronidazole (Flagyl) 500 mg in 100 mls @ 100 mls/hr IVPB Q8 [facility] Last Admin: 12/12/16 06:08 Dose: 100 mls/hr Potassium Chloride 40 meq/ (Sodium Chloride) 1,020 mls @ 75 mls/hr IV .[id number] [facility] Last Admin: 12/11/16 11:00 Dose: 75 mls/hr Fat Emulsion Intravenous (Intralipid 20%) 500 mls @ 42 mls/hr IV TuThSa [facility] Last Admin: 12/11/16 18:11 Dose: 42 mls/hr Amino Acids (Clinimix 4.25/5 % (1000 Ml)) 1,000 mls @ 63 mls/hr IV .[id number] ONE Stop: 12/13/16 01:52 Insulin Aspart (Novolog) 0 unit SC ACHS [facility] PRN Reason: Protocol Last Admin: 12/11/16 22:08 Dose: Not Given Ketorolac Tromethamine (Toradol) 10 mg PO Q4H PRN PRN Reason: abdominal pain Last Admin: 12/12/16 03:03 Dose: 10 mg Octreotide Acetate (Sandostatin) 100 mcg SC Q8H [facility] Last Admin: 12/12/16 04:20 Dose: 100 mcg - Labs Labs: 12/10/16 07:07 12/10/16 07:07 PT 11.4 SECONDS (9.7-12.2) 12/02/16 21:57 INR 1.0 12/02/16 21:57 APTT 37 SECONDS (21-34) H 12/02/16 21:57 - Constitutional Appears: No Acute Distress - Head Exam Head Exam: ATRAUMATIC, NORMOCEPHALIC - Eye Exam Eye Exam: EOMI, PERRL - Respiratory Exam Respiratory Exam: NORMAL BREATHING PATTERN - Cardiovascular Exam Cardiovascular Exam: REGULAR RHYTHM, +S1 - GI/Abdominal Exam GI & Abdominal Exam: Soft, Normal Bowel Sounds. absent: Tenderness Additional comments: Drainage noted but unable to quantify currently. 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 Defer surgical management with Dr Ledbetter pending continued improvement in fistula drainage. Further management to be planned based on clinical course over next several weeks. Hope to defer need for diverting ileostomy if possible. Status: Chronic (4) Sepsis Status: Resolved
--- NOTE | 2016-12-12 11:10 | CP.PCM.PN ---
Subjective - Date & Time of Evaluation Date of Evaluation: 12/12/16 Time of Evaluation: 11:05 - Subjective Subjective: Afebrile. Patient had abdominal pains yesterday relieved by Toradol PO.. Output from fistula is much lesser. Patient is better hydrated. Dr. Cid's notes appreciated. In this case we can discharge aptient to a good subacute facility and wait for this fistula to heal if ever it will and transfer him to Dr. Ledbetter's service in [facility]. Objective - Vital Signs/Intake and Output Vital Signs (last 24 hours): Temp Pulse Resp BP Pulse Ox 98.1 F 120 H 18 124/75 99 12/12/16 08:31 12/12/16 08:31 12/12/16 08:31 12/12/16 08:31 12/12/16 08:31 Intake and Output: 12/12/16 12/12/16 06:59 18:59 Intake Total 2339 Output Total 860 Balance 1479 - Medications Medications: Current Medications Acetaminophen (Tylenol 650 Mg Supp) 650 mg RC Q4 PRN PRN Reason: Fever >101. F Enoxaparin Sodium (Lovenox) 30 mg SC DAILY [facility] Last Admin: 12/11/16 10:00 Dose: 30 mg Tigecycline 50 mg/ Sodium (Chloride) 100 mls @ 100 mls/hr IVPB Q12H [facility]S AT [facility] Last Admin: 12/12/16 02:58 Dose: 100 mls/hr Metronidazole (Flagyl) 500 mg in 100 mls @ 100 mls/hr IVPB Q8 [facility] 234 BEDS AT [facility] Last Admin: 12/12/16 06:08 Dose: 100 mls/hr Potassium Chloride 40 meq/ (Sodium Chloride) 1,020 mls @ 75 mls/hr IV .[id number] [facility]S [facility] 234 BEDS AT [facility] Last Admin: 12/11/16 11:00 Dose: 75 mls/hr Fat Emulsion Intravenous (Intralipid 20%) 500 mls @ 42 mls/hr IV TuThSa COUNTS [facility]CLUDE 234 BEDS AT [facility] Last Admin: 12/11/16 18:11 Dose: 42 mls/hr Amino Acids (Clinimix 4.25/5 % (1000 Ml)) 1,000 mls @ 63 mls/hr IV .[id number] ONE Stop: 12/13/16 01:52 Insulin Aspart (Novolog) 0 unit SC ACHS [facility] 234 BEDS AT [facility] PRN Reason: Protocol Last Admin: 12/11/16 22:08 Dose: Not Given Ketorolac Tromethamine (Toradol) 10 mg PO Q4H PRN PRN Reason: abdominal pain Last Admin: 12/12/16 03:03 Dose: 10 mg Octreotide Acetate (Sandostatin) 100 mcg SC Q8H [facility] 234 BEDS AT [facility] Last Admin: 12/12/16 04:20 Dose: 100 mcg - Labs Labs: 12/10/16 07:07 12/10/16 07:07 PT 11.4 SECONDS (9.7-12.2) 12/02/16 21:57 INR 1.0 12/02/16 21:57 APTT 37 SECONDS (21-34) H 12/02/16 21:57 - Constitutional Appears: Cachectic, Chronically Ill - Head Exam Head Exam: ATRAUMATIC, NORMAL INSPECTION, NORMOCEPHALIC - Eye Exam Eye Exam: Normal appearance Pupil Exam: PERRL - ENT Exam ENT Exam: Mucous Membranes Moist - Neck Exam Neck Exam: Full ROM, Normal Inspection - Respiratory Exam Respiratory Exam: Clear to Ausculation Bilateral, NORMAL BREATHING PATTERN - Cardiovascular Exam Cardiovascular Exam: REGULAR RHYTHM, +S1, +S2 - GI/Abdominal Exam GI & Abdominal Exam: Soft Additional comments: Suprapubic fsitula with foul smelling output. - Rectal Exam Rectal Exam: Deferred - Extremities Exam Extremities Exam: Full ROM - Back Exam Back Exam: NORMAL INSPECTION - Neurological Exam Neurological Exam: Alert, Awake, Oriented x3 - Psychiatric Exam Psychiatric exam: Depressed, Normal Affect - Skin Skin Exam: Dry, Intact, Normal Color Assessment and Plan (1) Sepsis Status: Resolved (2) Diverticulosis of colon Status: Chronic (3) Cholecystitis with cholelithiasis Status: Ruled-out (4) Enterocutaneous fistula Status: Chronic (5) Sialadenitis Status: Resolved (6) Dehydration, severe Status: Acute - Assessment and Plan (Free Text) Plan: Plan: Continue IV antibiotics Continue TPN and 0.9 Nacl infusion. Continue po fluids. Will discuss with Dr. Cid.
[2016-12-12 11:59] LABS: BASO % 0.4 % (0.0-2.0); EOS # 0.3 K/uL (0.0-0.7); EOS % 3.5 % (0.0-4.0); HEMATOCRIT 27.8 % (35.0-51.0); LYMPH # 1.5 K/uL (1.0-4.3); LYMPH % 15.4 % (20.0-40.0); MEAN CELL VOLUME 94.3 fL (80.0-94.0); MEAN CORPUSCULAR HEMOGLOBIN 32.5 pg (27.0-31.0); MEAN CORPUSCULAR HGB CONC 34.5 g/dL (33.0-37.0); MEAN PLATELET VOLUME 7.3 fL (7.2-11.7); MONO # 0.4 K/uL (0.0-0.8); MONO % 4.4 % (0.0-10.0); RED CELL DISTRIBUTION WIDTH 14.1 % (11.5-14.5); WHITE BLOOD COUNT 9.9 K/uL (4.8-10.8)
[2016-12-12 12:08] LABS: CHLORIDE 104 mmol/L (98-107); POTASSIUM 3.9 mmol/L (3.6-5.2); SODIUM 131 mmol/L (132-148)
[2016-12-12 12:10] LABS: GFR AFRICAN-AMERICAN > 60
[2016-12-12 12:11] LABS: ALB/GLOB RATIO 0.6 (1.0-2.1); ALKALINE PHOSPHATASE 58 U/L (38-126); ALT/SGPT 23 U/L (21-72); AST/SGOT 18 U/L (17-59); BILIRUBIN,TOTAL 0.3 mg/dL (0.2-1.3); BLOOD UREA NITROGEN 22 mg/dL (9-20); CALCIUM 6.6 mg/dl (8.6-10.4); CARBON DIOXIDE 20 mmol/L (22-30); GLUCOSE,RANDOM 128 mg/dL (75-110)
[2016-12-12 13:33] LABS: RBC URINE < 1 /hpf (0-3); URINE BILIRUBIN NEGATIVE (NEGATIVE); URINE BLOOD NEGATIVE (NEGATIVE); URINE COLOR Yellow (YELLOW); URINE GLUCOSE (UA) 1+ mg/dL (Normal); URINE KETONE NEGATIVE (NEGATIVE); URINE LEUKOCYTE ESTERASE TRACE Leu/uL (Negative); URINE PROTEIN NEGATIVE (NEGATIVE); URINE UROBILINOGEN NORMAL mg/dL (0.2-1.0); WBC URINE 2 /hpf (0-5)
--- NOTE | 2016-12-12 14:23 | CP.PCM.PN ---
Subjective - Date & Time of Evaluation Date of Evaluation: 12/12/16 Time of Evaluation: 14:23 - Subjective Subjective: afebrile. ON TPN ENTEROCUTANEOUS FISTULA DRAINAGE DECREASING GI F/U NOTE APPRECIATED CONTINUE PRESENT MANAGEMENT WITH IV ANTIBIOTICS AND OCTREOTIDE Objective - Vital Signs/Intake and Output Vital Signs (last 24 hours): Temp Pulse Resp BP Pulse Ox 98.1 F 120 H 18 124/75 99 12/12/16 08:31 12/12/16 08:31 12/12/16 08:31 12/12/16 08:31 12/12/16 08:31 Intake and Output: 12/12/16 12/12/16 06:59 18:59 Intake Total 2339 Output Total 860 Balance 1479 - Medications Medications: Current Medications Acetaminophen (Tylenol 650 Mg Supp) 650 mg RC Q4 PRN PRN Reason: Fever >101. F Enoxaparin Sodium (Lovenox) 30 mg SC DAILY [facility] Last Admin: 12/12/16 10:00 Dose: 30 mg Tigecycline 50 mg/ Sodium (Chloride) 100 mls @ 100 mls/hr IVPB Q12H [facility] Last Admin: 12/12/16 13:50 Dose: 100 mls/hr Metronidazole (Flagyl) 500 mg in 100 mls @ 100 mls/hr IVPB Q8 [facility] Last Admin: 12/12/16 13:30 Dose: 100 mls/hr Potassium Chloride 40 meq/ (Sodium Chloride) 1,020 mls @ 75 mls/hr IV .[id number] [facility] Last Admin: 12/12/16 08:40 Dose: 75 mls/hr Fat Emulsion Intravenous (Intralipid 20%) 500 mls @ 42 mls/hr IV TuThSa [facility] Last Admin: 12/11/16 18:11 Dose: 42 mls/hr Amino Acids (Clinimix 4.25/5 % (1000 Ml)) 1,000 mls @ 63 mls/hr IV .[id number] ONE Stop: 12/13/16 01:52 Last Admin: 12/12/16 10:00 Dose: 63 mls/hr Multivitamins/Vitamin C 10 ml/ (Amino Acids) 1,010 mls @ 63 mls/hr IV .[id number] ONE Stop: 12/13/16 10:01 Amino Acids (Clinimix 4.25/5 % (1000 Ml)) 1,000 mls @ 63 mls/hr IV .[id number] ONE Stop: 12/14/16 01:52 Insulin Aspart (Novolog) 0 unit SC ACHS [facility] PRN Reason: Protocol Last Admin: 12/12/16 11:30 Dose: Not Given Ketorolac Tromethamine (Toradol) 10 mg PO Q4H PRN PRN Reason: abdominal pain Last Admin: 12/12/16 13:45 Dose: 10 mg Octreotide Acetate (Sandostatin) 100 mcg SC Q8H [facility] Last Admin: 12/12/16 12:00 Dose: 100 mcg - Labs Labs: 12/12/16 11:56 12/12/16 11:56 PT 11.4 SECONDS (9.7-12.2) 12/02/16 21:57 INR 1.0 12/02/16 21:57 APTT 37 SECONDS (21-34) H 12/02/16 21:57 - Constitutional Appears: No Acute Distress, Chronically Ill - Head Exam Head Exam: NORMAL INSPECTION - Eye Exam Eye Exam: EOMI, PERRL - ENT Exam ENT Exam: Normal Oropharynx - Neck Exam Neck Exam: Normal Inspection - Respiratory Exam Respiratory Exam: NORMAL BREATHING PATTERN - Cardiovascular Exam Cardiovascular Exam: Tachycardia, +S1, +S2 - GI/Abdominal Exam GI & Abdominal Exam: Soft, Normal Bowel Sounds (OSTOMY TUBE IN PLACE WITH DRAINAGE.) - Extremities Exam Extremities Exam: absent: Calf Tenderness, Pedal Edema - Neurological Exam Neurological Exam: Oriented x3 - Psychiatric Exam Psychiatric exam: Normal Mood - Skin Skin Exam: Normal Color, Warm Assessment and Plan (1) Sepsis Assessment & Plan: BLOOD CULTURES NEGATIVE TO DATE. ENTEROCUTANEOUS FISTULA DRAINAGE ; MULTIPLE GRAM-NEGATIVE AND GRAM-POSITIVE ORGANISMS E. COLI AND ENTEROCOCCUS -CASSELFLAVIS Status: Resolved (2) Cholecystitis without cholelithiasis Status: Acute (3) Sialadenitis Status: Resolved (4) Enterocutaneous fistula Assessment & Plan: ON IV TYGACIL 100MG IV LD-12/08 F/U BY TYGACIL 50MG IV [id number]. CONTINUE iv fLAGYL 500 EVERY 8 HOURLY. OSTOMY SITE DRAINAGE IS DECREASING ON OCTREOTIDE. CONTINUE PER GI /SURGICAL TEAM CONTINUE TPN PER GI. Status: Chronic (5) Anastomotic leak of intestine Status: Acute
[2016-12-12 15:49] VITALS: RESP 20
[2016-12-13] MEDS: metroNIDAZOLE IV 500 mg/100 ml 500 MG/100 ML BAG IVPB SCH ×3 (05:31→21:57)
[2016-12-13] MEDS: (Novolog) Insulin Aspart, Recombinant 100 u/ml 10 ml vial SC SCH ×4 (07:30→22:01)
--- NOTE | 2016-12-13 09:51 | CP.PCM.PN ---
Subjective - Date & Time of Evaluation Date of Evaluation: 12/13/16 Time of Evaluation: 09:47 - Subjective Subjective: Wound and fistula examined with Ostomy Nurse who changed dressing and drainage bag. Much less drainage from fistula. Objective - Vital Signs/Intake and Output Vital Signs (last 24 hours): Temp Pulse Resp BP Pulse Ox 98.0 F 79 20 114/74 100 12/13/16 08:45 12/13/16 08:45 12/13/16 08:45 12/13/16 08:45 12/13/16 08:45 Intake and Output: 12/13/16 12/13/16 06:59 18:59 Intake Total 1544 Output Total 25 Balance 1519 - Medications Medications: Current Medications Acetaminophen (Tylenol 650 Mg Supp) 650 mg RC Q4 PRN PRN Reason: Fever >101. F Enoxaparin Sodium (Lovenox) 30 mg SC DAILY [facility] Last Admin: 12/12/16 10:00 Dose: 30 mg Tigecycline 50 mg/ Sodium (Chloride) 100 mls @ 100 mls/hr IVPB Q12H [facility] Last Admin: 12/13/16 01:46 Dose: 100 mls/hr Metronidazole (Flagyl) 500 mg in 100 mls @ 100 mls/hr IVPB Q8 [facility] Last Admin: 12/13/16 05:31 Dose: 100 mls/hr Potassium Chloride 40 meq/ (Sodium Chloride) 1,020 mls @ 75 mls/hr IV .[id number] [facility] Last Admin: 12/12/16 22:06 Dose: 75 mls/hr Fat Emulsion Intravenous (Intralipid 20%) 500 mls @ 42 mls/hr IV TuThSa [facility] Last Admin: 12/11/16 18:11 Dose: 42 mls/hr Multivitamins/Vitamin C 10 ml/ (Amino Acids) 1,010 mls @ 63 mls/hr IV .[id number] ONE Stop: 12/13/16 10:01 Last Admin: 12/12/16 18:19 Dose: 63 mls/hr Amino Acids (Clinimix 4.25/5 % (1000 Ml)) 1,000 mls @ 63 mls/hr IV .[id number] ONE Stop: 12/14/16 01:52 Multivitamins/Vitamin C 10 ml/ (Amino Acids) 1,010 mls @ 63 mls/hr IV .[id number] ONE Stop: 12/14/16 10:01 Amino Acids (Clinimix 4.25/5 % (1000 Ml)) 1,000 mls @ 63 mls/hr IV .[id number] ONE Stop: 12/15/16 01:52 Insulin Aspart (Novolog) 0 unit SC ACHS [facility] PRN Reason: Protocol Last Admin: 12/12/16 22:02 Dose: Not Given Ketorolac Tromethamine (Toradol) 10 mg PO Q4H PRN PRN Reason: abdominal pain Last Admin: 12/13/16 04:00 Dose: 10 mg Octreotide Acetate (Sandostatin) 100 mcg SC Q8H [facility] Last Admin: 12/13/16 04:01 Dose: 100 mcg - Labs Labs: 12/12/16 11:56 12/12/16 11:56 PT 11.4 SECONDS (9.7-12.2) 12/02/16 21:57 INR 1.0 12/02/16 21:57 APTT 37 SECONDS (21-34) H 12/02/16 21:57 - Constitutional Appears: No Acute Distress - Head Exam Head Exam: ATRAUMATIC, NORMOCEPHALIC - Eye Exam Eye Exam: EOMI, PERRL - Respiratory Exam Respiratory Exam: NORMAL BREATHING PATTERN - Cardiovascular Exam Cardiovascular Exam: REGULAR RHYTHM - GI/Abdominal Exam GI & Abdominal Exam: Soft, Normal Bowel Sounds. absent: Tenderness Additional comments: Fistula site examined with Ostomy Nurse Enrique when appliance was removed to be changed. Fistula with mild drainage but much less erythema, induration and nodularity of abdominal wall around scar. Some skin breakdown at area near old colostomy site. - Extremities Exam Extremities Exam: Normal Inspection Assessment and Plan (1) Weight loss Assessment & Plan: On TPN. Advance diet as per surgical service. Status: Acute (2) Diverticulosis large intestine w/o perforation or abscess w/o bleeding Status: Chronic (3) Enterocutaneous fistula Assessment & Plan: Case discussed with Dr Woods. Patient is suitable for Subacute care facility if Octreotide is available to be continued. Timing for surgery with continued improvement at [place] would be middle of December unless patient condition deteriorates. Continue supportive care and fistula care. This will need to be performed properly at Subacute facility as well to prevent skin breakdown or secondary infection. Status: Chronic (4) Sepsis Status: Resolved
[2016-12-13] MEDS: Enoxaparin 30 mg Syringe SC SCH (10:00)
[2016-12-13] MEDS ORDERED: PPN IV ONE ×2 (10:00→18:00)
--- NOTE | 2016-12-13 10:46 | CP.PCM.DIS ---
Provider - Provider Date of Admission: 12/02/16 22:27 Attending physician: Virginia Woods MD Time Spent in preparation of Discharge (in minutes): 60 Diagnosis - Discharge Diagnosis (1) Sepsis Status: Resolved (2) Diverticulosis of colon Status: Chronic (3) Cholecystitis with cholelithiasis Status: Ruled-out Priority: High (4) Enterocutaneous fistula Status: Chronic (5) Sialadenitis Status: Resolved (6) Dehydration, severe Status: Resolved Hospital Course - Lab Results Lab Results: Micro Results 12/05/16 22:54 Abdomen Gram Stain - Final 12/05/16 22:54 Abdomen Wound Culture - Final Escherichia Coli Enterococcus Casseliflavus Most Recent Lab Values WBC 9.9 K/uL (4.8-10.8) 12/12/16 11:56 RBC 2.94 Mil/uL (4.40-5.90) L 12/12/16 11:56 Hgb 9.6 g/dL (12.0-18.0) L 12/12/16 11:56 Hct 27.8 % (35.0-51.0) L 12/12/16 11:56 MCV 94.3 fL (80.0-94.0) H 12/12/16 11:56 MCH 32.5 pg (27.0-31.0) H 12/12/16 11:56 MCHC 34.5 g/dL (33.0-37.0) 12/12/16 11:56 RDW 14.1 % (11.5-14.5) 12/12/16 11:56 Plt Count 255 K/uL (130-400) 12/12/16 11:56 MPV 7.3 fL (7.2-11.7) 12/12/16 11:56 Neut % (Auto) 76.3 % (50.0-75.0) H 12/12/16 11:56 Lymph % (Auto) 15.4 % (20.0-40.0) L 12/12/16 11:56 Ellis % (Auto) 4.4 % (0.0-10.0) 12/12/16 11:56 Eos % (Auto) 3.5 % (0.0-4.0) 12/12/16 11:56 Baso % (Auto) 0.4 % (0.0-2.0) 12/12/16 11:56 Neut # 7.6 K/uL (1.8-7.0) H 12/12/16 11:56 Lymph # 1.5 K/uL (1.0-4.3) 12/12/16 11:56 Ellis # 0.4 K/uL (0.0-0.8) 12/12/16 11:56 Eos # 0.3 K/uL (0.0-0.7) 12/12/16 11:56 Baso # 0.0 K/uL (0.0-0.2) 12/12/16 11:56 Neutrophils % (Manual) 91 % (50-75) H 12/04/16 06:49 Lymphocytes % (Manual) 5 % (20-40) L 12/04/16 06:49 Monocytes % (Manual) 4 % (0-10) 12/04/16 06:49 Platelet Estimate Normal (NORMAL) 12/04/16 06:49 RBC Morphology Normal 12/04/16 06:49 PT 11.4 SECONDS (9.7-12.2) 12/02/16 21:57 INR 1.0 12/02/16 21:57 APTT 37 SECONDS (21-34) H 12/02/16 21:57 pO2 28 mm/Hg (30-55) L 12/03/16 00:50 VBG pH 7.32 (7.32-7.43) 12/03/16 00:50 VBG pCO2 57 mmHg (40-60) 12/03/16 00:50 VBG HCO3 25.1 mmol/L 12/03/16 00:50 VBG Total CO2 31.1 mmol/L (22-28) H 12/03/16 00:50 VBG O2 Sat (Calc) 63.7 % (40-65) 12/03/16 00:50 VBG Base Excess 2.0 mmol/L (0.0-2.0) 12/03/16 00:50 VBG Potassium 4.3 mmol/L (3.6-5.2) 12/03/16 00:50 Sodium 143.0 mmol/l (132-148) 12/03/16 00:50 Chloride 112.0 mmol/L (98-107) H 12/03/16 00:50 Glucose 131 mg/dl (75-110) H 12/03/16 00:50 Lactate 1.8 mmol/L (0.7-2.1) 12/03/16 00:50 Sodium 131 mmol/L (132-148) L 12/12/16 11:56 Potassium 3.9 mmol/L (3.6-5.2) 12/12/16 11:56 Chloride 104 mmol/L (98-107) 12/12/16 11:56 Carbon Dioxide 20 mmol/L (22-30) L 12/12/16 11:56 Anion Gap 11 (10-20) 12/12/16 11:56 BUN 22 mg/dL (9-20) H 12/12/16 11:56 Creatinine 0.7 MG/DL (0.8-1.5) L 12/12/16 11:56 Est GFR ( Amer) > 60 12/12/16 11:56 Est GFR (Non-Af Amer) > 60 12/12/16 11:56 POC Glucose (mg/dL) 127 mg/dL (65-110) H 12/13/16 06:18 Random Glucose 128 mg/dL (75-110) H 12/12/16 11:56 Calcium 6.6 mg/dl (8.6-10.4) L 12/12/16 11:56 Phosphorus 3.1 mg/dL (2.5-4.5) 12/04/16 06:49 Magnesium 2.2 mg/dL (1.6-2.3) 12/04/16 06:49 Total Bilirubin 0.3 mg/dL (0.2-1.3) 12/12/16 11:56 AST 18 U/L (17-59) 12/12/16 11:56 ALT 23 U/L (21-72) 12/12/16 11:56 Alkaline Phosphatase 58 U/L (38-126) 12/12/16 11:56 Total Protein 5.0 g/dL (6.3-8.3) L 12/12/16 11:56 Albumin 1.8 g/dL (3.5-5.0) L D 12/12/16 11:56 Globulin 3.2 gm/dL (2.2-3.9) 12/12/16 11:56 Albumin/Globulin Ratio 0.6 (1.0-2.1) L 12/12/16 11:56 Venous Blood Potassium 4.3 mmol/L (3.6-5.2) 12/03/16 00:50 Urine Color Yellow (YELLOW) 12/12/16 12:53 Urine Clarity Clear (Clear) 12/12/16 12:53 Urine pH 5.0 (5.0-8.0) 12/12/16 12:53 Ur Specific [place] 1.012 (1.003-1.030) 12/12/16 12:53 Urine Protein Negative mg/dL (NEGATIVE) 12/12/16 12:53 Urine Glucose (UA) 1+ mg/dL (Normal) H 12/12/16 12:53 Urine Ketones Negative mg/dL (NEGATIVE) 12/12/16 12:53 Urine Blood Negative (NEGATIVE) 12/12/16 12:53 Urine Nitrate Negative (NEGATIVE) 12/12/16 12:53 Urine Bilirubin Negative (NEGATIVE) 12/12/16 12:53 Urine Urobilinogen Normal mg/dL (0.2-1.0) 12/12/16 12:53 Ur Leukocyte Esterase Trace Nevin/uL (Negative) 12/12/16 12:53 Urine WBC (Auto) 2 /hpf (0-5) 12/12/16 12:53 Urine RBC (Auto) < 1 /hpf (0-3) 12/12/16 12:53 Ur Squamous Epith Cells < 1 /hpf (0-5) 12/12/16 12:53 Urine Bacteria Many (<OCC) H 12/02/16 21:57 - Hospital Course Hospital Course: As stated 2 days ago please see my discharge summary. A change of plan is revised for patient will be discharged to [facility] for subacute care with the same medications.especially the Octreotide . Gr,. Khloe will take over if patient deteriorates or if the fistula will persist. [facility]. [facility] - Head Exam Head Exam: ATRAUMATIC, NORMOCEPHALIC - GI/Abdominal Exam Additional comments: Anterior abbdominal wall the inferior fistula is almost healed. The superior fistula is draining small amount. The surrounding tissue are less excoriated and the nodularity is lesser - Psychiatric Exam Psychiatric exam: Depressed, Normal Affect - Skin Skin Exam: Dry, Intact, Normal Color, Warm Discharge Plan - Follow Up Plan Condition: FAIR Disposition: REHAB FACILITY/REHAB UNIT
--- NOTE | 2016-12-13 12:08 | CP.PCM.PN ---
Subjective - Date & Time of Evaluation Date of Evaluation: 12/13/16 Time of Evaluation: 12:08 - Subjective Subjective: EVENTS NOTED PT FOR [facility] ENTEROCUTANEOUS FISTULA DRAINAGE DECREASING AND PER NOTES,PATIENT TO CONTINUE PRESENT THERAPY IN ATTEMPT TO HEAL FISTULA. afebrile. ON TPN ENTEROCUTANEOUS FISTULA DRAINAGE DECREASING GI F/U NOTE APPRECIATED CASE DISCUSSED WITH DR BOBBI CHARLES. Objective - Vital Signs/Intake and Output Vital Signs (last 24 hours): Temp Pulse Resp BP Pulse Ox 98.0 F 79 20 114/74 100 12/13/16 08:45 12/13/16 08:45 12/13/16 08:45 12/13/16 08:45 12/13/16 08:45 Intake and Output: 12/13/16 12/13/16 06:59 18:59 Intake Total 1544 Output Total 25 Balance 1519 - Medications Medications: Current Medications Acetaminophen (Tylenol 650 Mg Supp) 650 mg RC Q4 PRN PRN Reason: Fever >101. F Enoxaparin Sodium (Lovenox) 30 mg SC DAILY [facility] Last Admin: 12/12/16 10:00 Dose: 30 mg Tigecycline 50 mg/ Sodium (Chloride) 100 mls @ 100 mls/hr IVPB Q12H [facility] Last Admin: 12/13/16 01:46 Dose: 100 mls/hr Metronidazole (Flagyl) 500 mg in 100 mls @ 100 mls/hr IVPB Q8 [facility] Last Admin: 12/13/16 05:31 Dose: 100 mls/hr Potassium Chloride 40 meq/ (Sodium Chloride) 1,020 mls @ 75 mls/hr IV .[id number] [facility] Last Admin: 12/12/16 22:06 Dose: 75 mls/hr Fat Emulsion Intravenous (Intralipid 20%) 500 mls @ 42 mls/hr IV TuThSa [facility] Last Admin: 12/11/16 18:11 Dose: 42 mls/hr Amino Acids (Clinimix 4.25/5 % (1000 Ml)) 1,000 mls @ 63 mls/hr IV .[id number] ONE Stop: 12/14/16 01:52 Multivitamins/Vitamin C 10 ml/ (Amino Acids) 1,010 mls @ 63 mls/hr IV .[id number] ONE Stop: 12/14/16 10:01 Amino Acids (Clinimix 4.25/5 % (1000 Ml)) 1,000 mls @ 63 mls/hr IV .[id number] [facility] Stop: 12/15/16 01:52 Insulin Aspart (Novolog) 0 unit SC ACHS [facility] PRN Reason: Protocol Last Admin: 12/12/16 22:02 Dose: Not Given Ketorolac Tromethamine (Toradol) 10 mg PO Q4H PRN PRN Reason: abdominal pain Last Admin: 12/13/16 04:00 Dose: 10 mg Octreotide Acetate (Sandostatin) 100 mcg SC Q8H [facility] Last Admin: 12/13/16 04:01 Dose: 100 mcg - Labs Labs: 12/12/16 11:56 12/12/16 11:56 PT 11.4 SECONDS (9.7-12.2) 12/02/16 21:57 INR 1.0 12/02/16 21:57 APTT 37 SECONDS (21-34) H 12/02/16 21:57 - Constitutional Appears: No Acute Distress, Cachectic, Chronically Ill - Head Exam Head Exam: NORMAL INSPECTION - Eye Exam Eye Exam: EOMI, PERRL - ENT Exam ENT Exam: Normal Oropharynx - Neck Exam Neck Exam: Normal Inspection - Respiratory Exam Respiratory Exam: Decreased Breath Sounds, NORMAL BREATHING PATTERN - Cardiovascular Exam Cardiovascular Exam: REGULAR RHYTHM, +S1, +S2 - GI/Abdominal Exam GI & Abdominal Exam: Soft, Tenderness (LESS TENDERNESS PERCUTANEOUS SITE. eNTEROCUTANEOUS FISTULA SLOWLY GRANULATING. OSTOMY SITE DRAINING SCANTY DRAINAGE.) - Extremities Exam Extremities Exam: absent: Calf Tenderness, Pedal Edema - Neurological Exam Neurological Exam: Awake, CN II-XII Intact, Oriented x3 - Skin Skin Exam: Normal Color, Warm Assessment and Plan (1) Sepsis Status: Resolved (2) Cholecystitis without cholelithiasis Status: Acute (3) Sialadenitis Status: Resolved (4) Enterocutaneous fistula Assessment & Plan: ON IV TYGACIL 100MG IV LD-12/08 F/U BY TYGACIL 50MG IV [id number] X 2WKS CONTINUE iv fLAGYL 500 EVERY 8 HOURLY X 2WKS OSTOMY SITE DRAINAGE IS DECREASING ON OCTREOTIDE. F/U RENAL FUNCTIONS CLOSELY fOLLOW-UP LFTS /cbc WEEKLY CONTINUE PER GI /SURGICAL TEAM CONTINUE TPN PER GI. WILL FOLLOW THE PATIENT WHILE IN THE HOSPITAL. Status: Chronic (5) Anastomotic leak of intestine Status: Acute
[2016-12-13] MEDS: Fat Emulsion 20% IV 500 ML IV SCH (19:00)
[2016-12-14] MEDS: metroNIDAZOLE IV 500 mg/100 ml 500 MG/100 ML BAG IVPB SCH ×2 (06:04→13:40)
[2016-12-14] MEDS: (Novolog) Insulin Aspart, Recombinant 100 u/ml 10 ml vial SC SCH ×2 (08:00→11:30)
[2016-12-14] MEDS: Enoxaparin 30 mg Syringe SC SCH (09:44)
[2016-12-14] MEDS ORDERED: PPN IV ONE ×2 (10:00→18:00)
--- NOTE | 2016-12-14 10:38 | CP.PCM.PN ---
Subjective - Date & Time of Evaluation Date of Evaluation: 12/14/16 Time of Evaluation: 11:10 - Subjective Subjective: Patient still here. [employer] and [employer] worker has difficulty [facility] A[facility]rile. Vital signs stable. Output at fistula is 300 cc / 24 hours.On iv TPN and 0.9 NACL. On Iv Tygacil and Flagyyl. Objective - Vital Signs/Intake and Output Vital Signs (last 24 hours): Temp Pulse Resp BP Pulse Ox 97.8 F 90 20 134/76 96 12/14/16 08:22 12/14/16 08:22 12/14/16 08:22 12/14/16 08:22 12/14/16 08:22 Intake and Output: 12/14/16 12/14/16 06:59 18:59 Intake Total 3190 Output Total 1450 Balance 1740 - Medications Medications: Current Medications Acetaminophen (Tylenol 650 Mg Supp) 650 mg RC Q4 PRN PRN Reason: Fever >101. F Enoxaparin Sodium (Lovenox) 30 mg SC DAILY [facility] Last Admin: 12/14/16 09:44 Dose: 30 mg Tigecycline 50 mg/ Sodium (Chloride) 100 mls @ 100 mls/hr IVPB Q12H [facility] Last Admin: 12/14/16 01:42 Dose: 100 mls/hr Metronidazole (Flagyl) 500 mg in 100 mls @ 100 mls/hr IVPB Q8 [facility] Last Admin: 12/14/16 06:04 Dose: 100 mls/hr Amino Acids (Clinimix 4.25/5 % (1000 Ml)) 1,000 mls @ 63 mls/hr IV .[id number] ONE Stop: 12/15/16 01:52 Last Admin: 12/14/16 09:45 Dose: 63 mls/hr Potassium Chloride 40 meq/ (Sodium Chloride) 1,020 mls @ 75 mls/hr IV .[id number] [facility] Last Admin: 12/13/16 19:40 Dose: Not Given Multivitamins/Vitamin C 10 ml/ (Amino Acids) 1,010 mls @ 63 mls/hr IV .[id number] [facility] Stop: 12/15/16 10:01 Amino Acids (Clinimix 4.25/5 % (1000 Ml)) 1,000 mls @ 63 mls/hr IV .[id number] [facility] Stop: 12/15/16 18:00 Insulin Aspart (Novolog) 0 unit SC ACHS [facility] PRN Reason: Protocol Last Admin: 12/14/16 08:00 Dose: 2 unit Ketorolac Tromethamine (Toradol) 10 mg PO Q4H PRN PRN Reason: abdominal pain Last Admin: 12/14/16 01:40 Dose: 10 mg Octreotide Acetate (Sandostatin) 100 mcg SC Q8H [facility] Last Admin: 12/14/16 04:48 Dose: 100 mcg - Labs Labs: 12/12/16 11:56 12/12/16 11:56 PT 11.4 SECONDS (9.7-12.2) 12/02/16 21:57 INR 1.0 12/02/16 21:57 APTT 37 SECONDS (21-34) H 12/02/16 21:57 - Head Exam Head Exam: ATRAUMATIC, NORMAL INSPECTION, NORMOCEPHALIC - ENT Exam ENT Exam: Mucous Membranes Moist - Neck Exam Neck Exam: Full ROM - Respiratory Exam Respiratory Exam: Clear to Ausculation Bilateral, NORMAL BREATHING PATTERN - Cardiovascular Exam Cardiovascular Exam: REGULAR RHYTHM, +S1, +S2 - GI/Abdominal Exam GI & Abdominal Exam: Diminished Bowel Sounds Additional comments: Skin around the fistula excoration is lesser nd the nodularity is lesser. - Rectal Exam Rectal Exam: Deferred - Extremities Exam Extremities Exam: Full ROM, Normal Inspection - Back Exam Back Exam: Full ROM, NORMAL INSPECTION - Neurological Exam Neurological Exam: Alert, Awake, CN II-XII Intact, Oriented x3 - Psychiatric Exam Psychiatric exam: Normal Affect, Normal Mood - Skin Skin Exam: Dry, Intact, Normal Color, Warm Assessment and Plan (1) Sepsis Status: Resolved (2) Diverticulosis of colon Status: Chronic (3) Cholecystitis with cholelithiasis Status: Ruled-out (4) Enterocutaneous fistula Status: Chronic (5) Sialadenitis Status: Resolved (6) Dehydration, severe Status: Resolved - Assessment and Plan (Free Text) Plan: Plan: Continue IV Flagyl and Tygacil Continue TPN and 0.9 Nacl infusion Fistula care. To dischrge patient when facility is available.
[2016-12-14 12:04] LABS: CHLORIDE 105 mmol/L (98-107); POTASSIUM 3.8 mmol/L (3.6-5.2); SODIUM 132 mmol/L (132-148)
[2016-12-14 12:07] LABS: CARBON DIOXIDE 19 mmol/L (22-30); GFR AFRICAN-AMERICAN > 60
[2016-12-14 12:08] LABS: BLOOD UREA NITROGEN 18 mg/dL (9-20); CALCIUM 6.5 mg/dl (8.6-10.4); GLUCOSE,RANDOM 83 mg/dL (75-110)
--- NOTE | 2016-12-14 13:13 | CT ---
PROCEDURE: CT abdomen pelvis without oral or intravenous contrast material. HISTORY: Chronic enterocutaneous fistula with abdominal pain. COMPARISON: Comparison made with CT scan abdomen pelvis 12/05/2016 and abdominal ultrasound 12/03/2016. TECHNIQUE: Contiguous axial images of the abdomen and pelvis. Oral contrast was administered. No IV contrast given. Coronal and Sagittal reformats generated. Radiation dose: Total exam DLP = 474.69 mGy-cm. This CT exam was performed using one or more of the following dose reduction techniques: Automated exposure control, adjustment of the mA and/or kV according to patient size, and/or use of iterative reconstruction technique. FINDINGS: LOWER THORAX: There appears to be some mild bibasilar atelectasis/ scarring with what may represent a tiny effusion. Some concomitant chronic pleural thickening not excluded. LIVER: Liver exhibits normal size and attenuation pattern without mass collection or calcification. GALLBLADDER AND BILE DUCTS: Gallbladder is moderately distended. No evidence of intraluminal gallbladder calculi. There may be some mild wall thickening and or edema. Rule out acute acalculous cholecystitis. Please refer to prior abdominal ultrasound 12/03/2016 PANCREAS: The visualized portions of the pancreas appears atrophic and fatty replaced. SPLEEN: Spleen exhibits normal size and attenuation pattern without mass collection or calcification. ADRENALS: There are no adrenal lesions. KIDNEYS AND URETERS: . There appears to be a left parapelvic renal cyst. Elliptical shaped approximately 7 mm calculus right renal pelvis. Tiny nonobstructing cortical calcifications seen regions of the anteromedial aspect upper/midpole and posterolateral mid to lower pole left kidney. Punctate calcification medial aspect and posterior inferior aspect right kidney. No evidence hydronephrosis. BLADDER: The urinary bladder is incompletely distended which may account for slight thick-walled appearance. Muscular hypertrophy may contribute. Cystitis or other intrinsic/ invasive wall lesion not excluded. REPRODUCTIVE: Prostate gland measures approximately 3.5 cm. Small prostatic calcifications. APPENDIX: Unremarkable. BOWEL: Evaluation of the bowel is limited due to the lack of oral contrast material. . Re- demonstrated is changes of partial colectomy left colon. There is apparent anastomosis in the left aspect of the pelvis. Again noted are inflammatory changes involving the subcutaneous tissues along the inferior margin of a incision site and possibly extending to or involving the umbilicus which contains air and fluid. The entire length of this inflammatory process in the subcutaneous tissues extends for just over 14 cm in CC dimension jun. Findings are consistent with enterocutaneous fistula which presumably in involves and/or is adjacent to the anastomosis. There may be several fistulous communications centrally. . No definitive free air however air seen along the presumed along the fistulous communication likely is contained by surrounding inflammatory tissue and phlegmon. There there is an additional enterocutaneous fistulous communication along the anterolateral wall of lower abdominal wall as well best seen on axial image number [id number]. . Note these the fistulous communications are less well seen on this study due to the lack of oral contrast material. PERITONEUM: As above. LYMPH NODES: Unremarkable. No enlarged lymph nodes. VASCULATURE: Unremarkable. No aortic aneurysm. BONES: No fracture or destructive lesion. OTHER FINDINGS: None. IMPRESSION: Mild left basilar atelectasis and small left-sided effusion. Apparent multiple enterocutaneous fistulous communications along the anterior abdominal wall, the more centrally located which appears to communicate or involving umbilicus. Second enterocutaneous fistulous communication along the left anterolateral lower abdominal wall also felt to be present. . Extensive inflammatory changes within the subcutaneous tissues surrounding the central fistula and/or fistulas. Gallbladder is moderately distended with wall thickening and or edema. Rule out acute acalculous cholecystitis.
[2016-12-14 17:24] VITALS: BP 129/75; PULSE 78; TEMP 98.7; O2SAT 99
--- NOTE | 2016-12-14 18:14 | CP.PCM.PN ---
Subjective - Date & Time of Evaluation Date of Evaluation: 12/14/16 Time of Evaluation: 18:13 - Subjective Subjective: afebrile. ON TPN ENTEROCUTANEOUS FISTULA DRAINAGE DECREASING PATIENT ACCEPTED IN [facility]. DISCUSSED WITH STAFF, PATIENT TO CONTINUE iv ANTIBIOTICS THAT IS IV tYGACIL 50 MG EVERY 12 HOURLY X2WKS iv fLAGYL 500 MG EVERY 8 HOURLY FOR 2 WEEKS. pATIENT TO BE REEVALUATED BY INFECTIOUS DISEASE OR DEVICE SALES CONSULTANT AT [facility] FOR FURTHER ANTIBIOTIC THERAPY IF NEEDED. fOLLOW-UP RENAL FUNCTIONS, cbc, lftS WEEKLY. Objective - Vital Signs/Intake and Output Vital Signs (last 24 hours): Temp Pulse Resp BP Pulse Ox 98.7 F 78 20 129/75 99 12/14/16 15:36 12/14/16 15:36 12/14/16 15:36 12/14/16 15:36 12/14/16 15:36 Intake and Output: 12/14/16 12/14/16 06:59 18:59 Intake Total 3190 Output Total 1450 Balance 1740 - Medications Medications: Current Medications Acetaminophen (Tylenol 650 Mg Supp) 650 mg RC Q4 PRN PRN Reason: Fever >101. F Enoxaparin Sodium (Lovenox) 30 mg SC DAILY [facility] Last Admin: 12/14/16 09:44 Dose: 30 mg Tigecycline 50 mg/ Sodium (Chloride) 100 mls @ 100 mls/hr IVPB Q12H [facility] Last Admin: 12/14/16 15:24 Dose: 100 mls/hr Metronidazole (Flagyl) 500 mg in 100 mls @ 100 mls/hr IVPB Q8 [facility] Last Admin: 12/14/16 13:40 Dose: 100 mls/hr Amino Acids (Clinimix 4.25/5 % (1000 Ml)) 1,000 mls @ 63 mls/hr IV .[id number] [facility] Stop: 12/15/16 01:52 Last Admin: 12/14/16 09:45 Dose: 63 mls/hr Potassium Chloride 40 meq/ (Sodium Chloride) 1,020 mls @ 75 mls/hr IV .[id number] [facility] Last Admin: 12/14/16 10:00 Dose: 75 mls/hr Multivitamins/Vitamin C 10 ml/ (Amino Acids) 1,010 mls @ 63 mls/hr IV .[id number] [facility] Stop: 12/15/16 10:01 Amino Acids (Clinimix 4.25/5 % (1000 Ml)) 1,000 mls @ 63 mls/hr IV .[id number] [facility] Stop: 12/15/16 18:00 Insulin Aspart (Novolog) 0 unit SC ACHS [facility] PRN Reason: Protocol Last Admin: 12/14/16 11:30 Dose: Not Given Ketorolac Tromethamine (Toradol) 10 mg PO Q4H PRN PRN Reason: abdominal pain Last Admin: 12/14/16 01:40 Dose: 10 mg Octreotide Acetate (Sandostatin) 100 mcg SC Q8H [facility] Last Admin: 12/14/16 12:00 Dose: 100 mcg - Labs Labs: 12/12/16 11:56 12/14/16 11:54 PT 11.4 SECONDS (9.7-12.2) 12/02/16 21:57 INR 1.0 12/02/16 21:57 APTT 37 SECONDS (21-34) H 12/02/16 21:57 - Constitutional Appears: No Acute Distress, Cachectic, Chronically Ill - Head Exam Head Exam: NORMAL INSPECTION - Eye Exam Eye Exam: EOMI, PERRL - ENT Exam ENT Exam: Normal Oropharynx - Neck Exam Neck Exam: Normal Inspection - Respiratory Exam Respiratory Exam: Clear to Ausculation Bilateral - Cardiovascular Exam Cardiovascular Exam: REGULAR RHYTHM, +S1, +S2 - GI/Abdominal Exam GI & Abdominal Exam: Soft, Normal Bowel Sounds (OSTOMY IN POSITION WITH ENTEROCUTANEOUS FISTULA MIDLINE DRAINING FECALITH MATERIAL.) - Extremities Exam Extremities Exam: Pedal Edema. absent: Calf Tenderness - Neurological Exam Neurological Exam: Awake, Oriented x3 - Psychiatric Exam Psychiatric exam: Normal Mood - Skin Skin Exam: Normal Color Assessment and Plan (1) Enterocutaneous fistula Status: Chronic (2) Anastomotic leak of intestine Status: Acute
[2016-12-15] MEDS ORDERED: PPN IV SCH (10:00)
== END 2016-12-14 18:30 | DRG 871 ==
LOC: C.ER 21:10 → C.9E 22:27 → C.5T 12-03 08:18 → C.6T 12-07 12:28
PROVIDERS: ADMIT Legal Medicine; ATTEND Legal Medicine
PROC: 3E0336Z Introduction of Nutritional Substance into Peripheral Vein, Percutaneous Approach (ICD-10-PCS; principal; 2016-12-02)
DX: A41.9 Sepsis, unspecified organism (principal); K57.33 Diverticulitis of large intestine without perforation or abscess with bleeding; K63.2 Fistula of intestine; K80.00 Calculus of gallbladder with acute cholecystitis without obstruction; E11.9 Type 2 diabetes mellitus without complications; D64.9 Anemia, unspecified; I10 Essential (primary) hypertension; K80.10 Calculus of gallbladder with chronic cholecystitis without obstruction; E86.0 Dehydration; Z87.442 Personal history of urinary calculi; K82.8 Other specified diseases of gallbladder; K86.89 Other specified diseases of pancreas; K11.21 Acute sialoadenitis; E78.00 Pure hypercholesterolemia, unspecified; E87.6 Hypokalemia; E78.5 Hyperlipidemia, unspecified; Z79.84 Long term (current) use of oral hypoglycemic drugs; Z43.3 Encounter for attention to colostomy